=== PATIENT | female | born 1980 | race Caucasian/White ===

== ENCOUNTER 2017-01-16 13:17 | Emergency (ER) | payer MEDICAID ==
--- NOTE | 2017-01-16 13:34 | PD ---
HPI Chief Complaint: OD/ Ingestion Time Seen by Provider: 13:33 Travel History International Travel<30 days: No Contact w/Intl Traveler<30days: No History of Present Illness HPI Patient is a 36-year-old female with history of active IV drug abuse, uses heroin amongst many other things. She apparently had shot up heroin shortly prior to arrival. She was found blue, apneic. She was given Narcan 0.4 mg. per EMS with return to baseline mental status. Patient agitated aggressive with EMS en route. Patient does not want to be here should. She is alert and oriented 3. She accidentally overdose, this was not intentional, suicide. PFSH Past Medical History Asthma: No Blood Disorders: No Anxiety: Yes Depression: Yes Cancer: No Cardiovascular Problems: No Chemotherapy: No Endocrine: No Genitourinary: Yes (KIDNEY STONES) Hypertension: No Immune Disorder: No Musculoskeletal: No Neurologic: Yes (EPILEPSY) Psychiatric: No Reproductive: No Respiratory: No Radiation Therapy: No Seizures: Yes : 1 Para: 1 Past Surgical History AICD: No Arteriovenous Shunt: No Insulin Pump: No Joint Replacement: No Pacemaker: No Other Surgery: Yes (RT. WRIST) Social History Alcohol Use: Yes (occ) Tobacco Use: Yes (ppd) Substance Use: Yes (ALCOHOL, OPIATES, COCAINE, AMPHETAMINES) Allergies-Medications (Allergen,Severity, Reaction): Coded Allergies: Aspirin (Verified Allergy, Severe, MAKES SEIZURES WORSE, 04/06/16) Codeine (Verified Allergy, Severe, 04/06/16) Mushroom (Verified Allergy, Severe, ANAPHYLAXIS, 04/06/16) Tramadol (Verified Allergy, Severe, 04/06/16) Reported Meds & Prescriptions Reported Meds & Active Scripts Active Review of Systems ROS Limitations: Uncooperative Physical Exam Exam Limitations: Uncooperative Narrative GENERAL: Disheveled adult female barefoot with dirt along her back SKIN: Focused skin assessment warm/dry. Tract jerome along the bilateral upper extremities HEAD: Atraumatic. Normocephalic. EYES: No scleral icterus. No injection or drainage. ENT: Mucous membranes pink and moist. CARDIOVASCULAR: Regular rate and rhythm. Heart rate approximately 80s by palpation RESPIRATORY: No accessory muscle use. MUSCULOSKELETAL: Normal gait NEUROLOGICAL: Awake and alert 3. Motor grossly within normal limits. Normal speech. PSYCHIATRIC: Agitated, uncooperative MDM Medical Decision Making Medical Screen Exam Complete: Yes Emergency Medical Condition: Yes Medical Record Reviewed: Yes Differential Diagnosis 36-year-old female here for overdose. Patient overdosed on opioid, found with syringes and other paraphernalia on her person. Admits to overdosing on heroin , accidentally. Now after 0.4 mg's and Narcan patient is awake and alert and oriented. Patient is uncooperative, cantankerous. She does not want to be here and does not want care. Differential includes concurrent ingestion, overdose, alcohol intoxication Narrative Course Patient awake and alert and oriented 3. Patient at this time has the capacity to make decisions for herself, and does not want to seek care at this time. Patient refuses recommended 3 hour observation period and leaves AGAINST MEDICAL ADVICE. Diagnosis Primary Impression: Left against medical advice Patient Instructions: General Instructions Departure Forms: Tests/Procedures Additional Instructions: Seek outpatient counseling for your substance abuse Scripts No Active Prescriptions or Reported Meds Disposition: 07 AGAINST MEDICAL ADVICE Condition: Stable Manisha Jaramillo MD Jan 16, 2017 13:34
== END 2017-01-16 13:30 | disposition left against medical advice (07) ==
LOC: NEPD 13:17
DX: T40.1X1A Poisoning by heroin, accidental (unintentional), initial encounter (principal); F41.9 Anxiety disorder, unspecified; F32.9 Major depressive disorder, single episode, unspecified; G40.909 Epilepsy, unspecified, not intractable, without status epilepticus; F17.200 Nicotine dependence, unspecified, uncomplicated; Z88.6 Allergy status to analgesic agent; Z88.5 Allergy status to narcotic agent
CPT/HCPCS: 99281

== ENCOUNTER 2017-02-13 15:40 | Inpatient (IN) | payer MEDICAID ==
[~2017-02-13] VITALS: Ht 154.9 cm; Wt 67.1 kg
[2017-02-13 15:42] VITALS: BP 119/83; PULSE 104; RESP 15; TEMP 98.6; O2SAT 99
[2017-02-13] MEDS ORDERED: PIPERACIL-TAZO 4.5 GM PREMIX 100 ML IV STA (16:14)
[2017-02-13] MEDS ORDERED: VANCOMYCIN INJ 1,000 MG in SODIUM CHLOR 0.9% 250 ML INJ 250 ML IV STA (16:14)
[2017-02-13] MEDS ORDERED: SODIUM CHLOR 0.9% 1000 ML INJ 1,000 ML IV ONE (16:15)
[2017-02-13] MEDS ORDERED: ONDANSETRON HCL 4 MG/2 ML VIAL IV PUSH ONE (16:15)
[2017-02-13] MEDS ORDERED: MORPHINE SULFATE 4 MG/ML INJ IV PUSH ONE ×2 (16:15→18:15)
[2017-02-13 16:22] VITALS: BP 125/80; PULSE 82; RESP 18; O2SAT 97
--- NOTE | 2017-02-13 16:26 | PD ---
HPI Chief Complaint: Skin Problem Time Seen by Provider: 16:20 Travel History International Travel<30 days: No Contact w/Intl Traveler<30days: No Traveled to known affect area: No History of Present Illness HPI Patient comes in complaining of right upper extremity cellulitis ongoing for approximately a month. Patient denies any known fevers but reports chills. Patient states she tried eating raw garlic with no improvement in her symptoms. Patient states she went to a different ER yesterday and given IV antibiotics supposed to be admitted however after getting into an argument with one of the nurses there she left with a prescription for clindamycin. Patient states feels as though infection continues to spread. Feels it is is going into her neck and her chest. Patient describes pain as pressure/burning/aching like in nature. Pain is worse palpation. Patient is a heroin user states she last used 2 weeks ago. Denies any chest pain, shortness of breath, nausea, vomiting , loss or change in bowel or bladder, or . PFSH Past Medical History Asthma: No Blood Disorders: No Anxiety: Yes Depression: Yes Cancer: No Cardiovascular Problems: No Chemotherapy: No Endocrine: No Gastrointestinal Disorders: No Genitourinary: Yes (KIDNEY STONES) Hypertension: No Immune Disorder: No Implanted Vascular Access Dvce: No Musculoskeletal: No Neurologic: Yes (EPILEPSY) Psychiatric: No Reproductive: No Respiratory: No Radiation Therapy: No Seizures: Yes ?: Not : 1 Para: 1 Past Surgical History AICD: No Arteriovenous Shunt: No Insulin Pump: No Joint Replacement: No Pacemaker: No Other Surgery: Yes (RT. WRIST) Social History Alcohol Use: Yes (occ) Tobacco Use: Yes (ppd) Substance Use: Yes (ALCOHOL, OPIATES, COCAINE, AMPHETAMINES) Allergies-Medications (Allergen,Severity, Reaction): Coded Allergies: aspirin (Unverified Allergy, Severe, MAKES SEIZURES WORSE, 02/08/17) codeine (Unverified Allergy, Severe, 02/08/17) mushroom (Unverified Allergy, Severe, ANAPHYLAXIS, 02/08/17) tramadol (Unverified Allergy, Severe, 02/08/17) cephalexin (Verified Allergy, Intermediate, seizure, 02/13/17) latex (Verified Allergy, Intermediate, rash, 02/13/17) vancomycin (Verified Allergy, Intermediate, hives, 8/20/17) Reported Meds & Prescriptions Reported Meds & Active Scripts Active Review of Systems Except as stated in HPI: all other systems reviewed are Neg Physical Exam Narrative GENERAL: Well-developed, overly nourished, in no acute distress, and non-ill appearing. SKIN: Large area cellulitis noted right upper extremity is indurated, tender, without crepitus or definitive fluctuation over patient is very sensitive area and allow me fully evaluate for fluctuation. Erythematous goes into the right axilla. HEAD: Atraumatic. Normocephalic. EYES: Pupils equal and round. EOMI. No scleral icterus. No injection or drainage. ENT: No nasal bleeding or discharge. Mucous membranes pink and moist. NECK: Trachea midline. No cervical lymphadenopathy. Supple. No nuclear rigidity. CARDIOVASCULAR: Regular rate and rhythm. No murmur appreciated. RESPIRATORY: No accessory muscle use. No respiratory distress. Clear to auscultation. Breath sounds equal bilaterally. MUSCULOSKELETAL: No obvious deformities. No clubbing. No cyanosis. No edema. Full range of motion. NEUROLOGICAL: Awake and alert. No obvious cranial nerve deficits. Motor grossly within normal limits. Normal speech. PSYCHIATRIC: Appropriate mood and affect; insight and judgment normal. Data Data Last Documented VS Vital Signs Date Time Temp Pulse Resp B/P (MAP) Pulse Ox O2 Delivery O2 Flow Rate FiO2 02/13/17 17:52 16 02/13/17 16:22 97 Room Air 02/13/17 16:22 82 125/80 (95) 02/13/17 15:42 98.6 Orders Orders Complete Blood Count With Diff (02/13/17 16:14) Comprehensive Metabolic Panel (02/13/17 16:14) Prothrombin Time / Inr (Pt) (02/13/17 16:14) Act Partial Throm Time (Ptt) (02/13/17 16:14) Lactic Acid Sepsis Protocol (02/13/17 16:14) Urinalysis - C+S If Indicated (02/13/17 16:14) Blood Culture (02/13/17 16:14) Chest, Single Ap (02/13/17 16:14) Blood Glucose (02/13/17 16:14) Ecg Monitoring (02/13/17 16:14) Iv Access Insert/Monitor (02/13/17 16:14) Oximetry (02/13/17 16:14) Oxygen Administration (02/13/17 16:14) Piperacil-Tazo 4.5 Gm Premix (Zosyn 4.5 (02/13/17 16:14) Vancomycin Inj (Vancomycin Inj) (02/13/17 16:14) Ed Urine Pregnancytest Poc (02/13/17 16:14) Morphine Inj (Morphine Inj) (02/13/17 16:15) Ondansetron Inj (Zofran Inj) (02/13/17 16:15) Sodium Chlor 0.9% 1000 Ml Inj (Ns 1000 M (02/13/17 16:15) Morphine Inj (Morphine Inj) (02/13/17 18:15) Admit Order (Ed Use Only) (02/13/17 18:28) Labs Laboratory Tests Test 02/13/17 16:45 02/13/17 18:00 White Blood Count 16.6 TH/MM3 Red Blood Count 4.39 MIL/MM3 Hemoglobin 11.1 GM/DL Hematocrit 33.5 % Mean Corpuscular Volume 76.3 FL Mean Corpuscular Hemoglobin 25.4 PG Mean Corpuscular Hemoglobin Concent 33.3 % Red Cell Distribution Width 15.3 % Platelet Count 390 TH/MM3 Mean Platelet Volume 7.3 FL Neutrophils (%) (Auto) 83.3 % Lymphocytes (%) (Auto) 9.5 % Monocytes (%) (Auto) 6.5 % Eosinophils (%) (Auto) 0.5 % Basophils (%) (Auto) 0.2 % Neutrophils # (Auto) 13.8 TH/MM3 Lymphocytes # (Auto) 1.6 TH/MM3 Monocytes # (Auto) 1.1 TH/MM3 Eosinophils # (Auto) 0.1 TH/MM3 Basophils # (Auto) 0.0 TH/MM3 CBC Comment DIFF FINAL Differential Comment Prothrombin Time 10.7 SEC Prothromb Time International Ratio 1.0 RATIO Activated Partial Thromboplast Time 30.6 SEC Blood Urea Nitrogen 11 MG/DL Creatinine 0.93 MG/DL Random Glucose 89 MG/DL Total Protein 6.6 GM/DL Albumin 2.4 GM/DL Calcium Level 7.9 MG/DL Alkaline Phosphatase 151 U/L Aspartate Amino Transf (AST/SGOT) 12 U/L Alanine Aminotransferase (ALT/SGPT) 18 U/L Total Bilirubin 0.6 MG/DL Sodium Level 137 MEQ/L Potassium Level 3.4 MEQ/L Chloride Level 103 MEQ/L Carbon Dioxide Level 26.9 MEQ/L Anion Gap 7 MEQ/L Estimat Glomerular Filtration Rate 69 ML/MIN Lactic Acid Level 0.9 mmol/L Urine Color YELLOW Urine Turbidity CLOUDY Urine pH 6.0 Urine Specific [place] 1.012 Urine Protein 30 mg/dL Urine Glucose (UA) NEG mg/dL Urine Ketones NEG mg/dL Urine Occult Blood SMALL Urine Nitrite NEG Urine Bilirubin NEG Urine Urobilinogen LESS THAN 2.0 MG/DL Urine Leukocyte Esterase LARGE Urine RBC 10 /hpf Urine WBC 33 /hpf Urine Squamous Epithelial Cells 56 /hpf Urine Bacteria FEW /hpf Urine Yeast (Budding) RARE Microscopic Urinalysis Comment CATH-CULTURE IND MDM Medical Decision Making Medical Screen Exam Complete: Yes Emergency Medical Condition: Yes Interpretation(s) Chest x-ray reviewed by the radiologist shows: No acute cardiopulmonary disease. Differential Diagnosis Abscess, cellulitis, sepsis, bacteremia, pneumonia, other Narrative Course Patient seen and examined. IV was established. Patient was placed on helper/driver. Initial laboratory and radiological studies ordered. Patient given vancomycin and Zosyn, along with IV fluids, and morphine for pain. Discussed patient with Dr. Romero, who is agreeable with plan of care and disposition. Discussed all findings and plan care of patient, who is agreeable for admission. Discussed patient with presence or agreeable to admit the patient. Physician Communication Physician Communication [phone] suspicion with residents collections clerk for , who are agreeable to admit the patient. Diagnosis Primary Impression: Cellulitis Qualified Codes: L03.113 - Cellulitis of right upper limb Additional Impression: Substance use disorder Admitting Information Admitting Physician Requests: Admit Scripts No Active Prescriptions or Reported Meds Condition: Stable Fabiano Sierra Feb 13, 2017 16:26
--- NOTE | 2017-02-13 17:05 | RADRPT ---
EXAM DATE/TIME: 02/13/2017 16:48 [facility] COMPARISON: CHEST SINGLE AP, November 27, 2009, 13:32. INDICATIONS : Shortness of breath. MEDICAL HISTORY : None. SURGICAL HISTORY : None. ENCOUNTER: Initial ACUITY: 1 day PAIN SCORE: 0/10 LOCATION: Bilateral chest FINDINGS: The lungs are clear without infiltrate, nodule, or mass. There is no appreciable pleural effusion fo r technique. Heart and mediastinum are unremarkable. There is old healed right clavicular fracture. CONCLUSION: No acute cardiopulmonary disease. Ga Alonso MD on February 13, 2017 at 17:03 Board Certified Radiologist. This report was verified electronically.
[2017-02-13 17:35] LABS: AUTOMATED NEUTROPHIL # 13.8 TH/MM3 (1.8-7.7); BASOPHIL % 0.2 % (0.0-2.0); EOSINOPHIL # 0.1 TH/MM3 (0-0.4); EOSINOPHIL % 0.5 % (0.0-4.0); HEMATOCRIT 33.5 % (35.0-46.0); HEMO FLAGS DIFF FINAL; LYMPH % 9.5 % (9.0-44.0); LYMPHOCYTE # 1.6 TH/MM3 (1.0-4.8); MEAN CELL VOLUME 76.3 FL (80.0-100.0); MEAN CORPUSCULAR HEMOGLOBIN 25.4 PG (27.0-34.0); MEAN CORPUSCULAR HGB CONC 33.3 % (32.0-36.0); MONO % 6.5 % (0.0-8.0); NEUT % 83.3 % (16.0-70.0); PLATELET COUNT 390 TH/MM3 (150-450); RED BLOOD COUNT 4.39 MIL/MM3 (4.00-5.30); RED CELL DISTRIBUTION WIDTH 15.3 % (11.6-17.2); WHITE BLOOD COUNT 16.6 TH/MM3 (4.0-11.0)
[2017-02-13 17:44] LABS: APTT (PATIENT) 30.6 SEC (24.3-30.1); PROTHROMBIN TIME - PATIENT 10.7 SEC (9.8-11.6)
[2017-02-13 17:51] LABS: ANION GAP 7 MEQ/L (5-15); AST (GOT) 12 U/L (15-37); BICARBONATE 26.9 MEQ/L (21.0-32.0); BLOOD UREA NITROGEN 11 MG/DL (7-18); CHLORIDE 103 MEQ/L (98-107); GLOMERULAR FILTRATION RATE 69 ML/MIN (>89); POTASSIUM 3.4 MEQ/L (3.5-5.1); SODIUM (NA) 137 MEQ/L (136-145)
[2017-02-13 17:53] LABS: ALT (GPT) 18 U/L (10-53)
[2017-02-13 17:54] LABS: ALKALINE PHOSPHATASE 151 U/L (45-117); TOTAL BILIRUBIN ADULT 0.6 MG/DL (0.2-1.0)
[2017-02-13 18:31] LABS: BACTERIA, URINE FEW /hpf; BLOOD, URINE SMALL (NEG); GLUCOSE,URINE NEG (NEG); KETONE, URINE NEG (NEG); NITRITE,URINE NEG (NEG); SQUAMOUS EPITHELIAL CELL URINE 56 /hpf (0-5); URINE COLOR YELLOW (YELLW/STRAW)
[2017-02-13 18:32] LABS: COMMENT (UR) CATH-CULTURE IND; CULTURE IF INDICATED CATH CULTURE IND
--- NOTE | 2017-02-13 18:37 | HHI.HP ---
[facility] Service Family Medicine Primary Care Physician No Primary Care Physician Admission Diagnosis Diagnoses: Chief Complaint: Rash International Travel<30 Days: No Contact w/Intl Traveler<30days: No Known Affected Area: No History of Present Illness Patient is a 36-year-old female with history of epilepsy presents with right arm pain and rash. Patient states that she's been having a rash for the last 3 weeks. She states a month ago, she noticed a "bump" on her biceps. She had a bruise and a wound, and then bumped her arm a week later started swell up. Since then, she said is no swelling more and has been extremely more painful. She went to [facility] last week and was sent home with clindamycin. She then returned 4 days ago and was given a stronger dose of clindamycin. She then returned yesterday, but left AMA. She says the pain initially started on her arm, but has now progressed to armpit. She says she also has pain in her upper neck and right chest. She says the pain is constant, it is a throbbing pain. States it is burning. No numbness or tingling. Presented as a 10/10. Having chills and nausea. Feels lightheaded due to the pain. She took Advil at home, which helped minimally. 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 Denies any other wounds or rashes on her skin. (Enrique Lin MD, R2) Review of Systems Constitutional: COMPLAINS OF: Fever, Chills, Dizziness, DENIES: Weight loss, Change in appetite Eyes: DENIES: Eye pain, Vision loss Ears, nose, mouth, throat: COMPLAINS OF: Ear Pain Respiratory: DENIES: Cough, Shortness of breath Cardiovascular: COMPLAINS OF: Chest pain, Syncope Gastrointestinal: COMPLAINS OF: Nausea, Vomiting, DENIES: Abdominal pain, Black stools, Bloody stools, Constipation, Diarrhea Genitourinary: COMPLAINS OF: Dysuria, DENIES: Urgency Musculoskeletal: COMPLAINS OF: Joint Swelling, DENIES: Joint pain Integumentary: COMPLAINS OF: Abnormal pigmentation, Rash Neurologic: COMPLAINS OF: Headache, Seizures, DENIES: Paresthesias Psychiatric: COMPLAINS OF: Mood changes (Enrique Lin MD, R2) Past Family Social History Past Medical History Epilepsy; unknown last seizure date; no neurologist Osteomyelitis of sternum-2015 Right arm wound Past Surgical History Arm surgery Tonsillectomy Adenoidectomy Reported Medications Reported Meds & Active Scripts Active (Enrique Lin MD, R2) Allergies: Coded Allergies: aspirin (Unverified Allergy, Severe, MAKES SEIZURES WORSE, 02/08/17) codeine (Unverified Allergy, Severe, 02/08/17) mushroom (Unverified Allergy, Severe, ANAPHYLAXIS, 02/08/17) tramadol (Unverified Allergy, Severe, 02/08/17) cephalexin (Verified Allergy, Intermediate, seizure, 02/13/17) latex (Verified Allergy, Intermediate, rash, 02/13/17) vancomycin (Verified Allergy, Intermediate, hives, 02/13/17) Active Ordered Medications Active Medications Morphine Sulfate (Morphine Inj) 4 mg ONCE ONCE IV PUSH Last administered on 17:15; Admin Dose 4 MG; Start 02/13/17 at 16:15; Stop 02/13/17 at 16:19 ; Status DC Morphine Sulfate (Morphine Inj) 4 mg ONCE ONCE IV PUSH; Start 02/13/17 at 18:15 ; Stop 02/13/17 at 18:16; Status DC Ondansetron HCl (Zofran Inj) 4 mg ONCE ONCE IV PUSH Last administered on 16:15; Admin Dose 4 MG; Start 02/13/17 at 16:15; Stop 02/13/17 at 16:19; Status DC Piperacillin Sod/ Tazobactam Sod 100 ml @ 200 mls/hr ONCE STAT IV Last administered on 02/13/17 17:15; Admin Dose 200 MLS/HR; Start 02/13/17 at 16:14 ; Stop 02/13/17 at 16:43; Status DC Sodium Chloride 1,000 ml @ 999 mls/hr BOLUS ONCE IV Last administered on 17:14; Admin Dose 999 MLS/HR; Start 02/13/17 at 16:15; Stop 02/13/17 at 17: 15; Status DC Vancomycin HCl 1000 mg/Sodium Chloride 250 ml @ 250 mls/hr ONCE STAT IV Last administered on 02/13/17 17:59; Admin Dose 250 MLS/HR; Start 02/13/17 at 16:14 ; Stop 02/13/17 at 17:13; Status DC Family History Parents- heart disease Social History Smoke 2 PPD for 20 years Alcohol: Socially Illicit drug use: Quit heroin 3 weeks ago; marijuana daily (Enrique Lin MD, R2) Physical Exam Vital Signs Vital Signs Date Time Temp Pulse Resp B/P (MAP) Pulse Ox O2 Delivery O2 Flow Rate FiO2 02/13/17 17:52 16 02/13/17 16:22 97 Room Air 02/13/17 16:22 82 18 125/80 (95) 97 Room Air 02/13/17 16:14 88 20 02/13/17 15:42 98.6 104 15 119/83 (95) 99 Physical Exam GENERAL: well developed, normal mood and affect, appears in pain EYES: PERRLA. EOMI. Lids and conjunctivae reveal no gross abnormality. No scleral icterus. ENT: NCAT. MMM. OP/OC clear. No cervical or supraclavicular LAD. NECK: Supple, no masses. Trachea midline. No thyromegaly. SKIN: Large area of cellulitis on the right upper extremity. Extends from right inner arm to right axilla. Erythematous, warm to the touch. Not well demarcated. Indurated, especially on the right under arm. Difficult to extensively examine due to pain, but no fluctuance or crepitus appreciated. No exudates. No foul smell. No necrotic appearing tissue. No skin sloughing. No ulcers. Sensation in overlying skin intact. Good distal pulses. No loss of motor function distally. RESPIRATORY: CTAB, no wheezing, crackles, or increased WOB. CARDIOVASCULAR: RRR, no m/r/g. Normal S1, S2 heart sounds. Radial and DP pulses 2+ and symmetric bilaterally. Brisk capillary refill. ABDOMEN: S/ NT/ND. Bowel sounds x 4. No masses or pulsations present. No hepatosplenomegaly. EXTREMITIES: No remarkable dependent edema or varicosities. No clubbing, cyanosis, or erythema. MUSCULOSKELETAL: MAEW without significant joint pain or deformity. No calf tenderness. NEUROLOGICAL: NFND. Sensory intact bilaterally PSYCHIATRIC: Mental status normal for age. Laboratory Laboratory Tests Test 02/13/17 16:45 02/13/17 18:00 White Blood Count 16.6 Red Blood Count 4.39 Hemoglobin 11.1 Hematocrit 33.5 Mean Corpuscular Volume 76.3 Mean Corpuscular Hemoglobin 25.4 Mean Corpuscular Hemoglobin Concent 33.3 Red Cell Distribution Width 15.3 Platelet Count 390 Mean Platelet Volume 7.3 Neutrophils (%) (Auto) 83.3 Lymphocytes (%) (Auto) 9.5 Monocytes (%) (Auto) 6.5 Eosinophils (%) (Auto) 0.5 Basophils (%) (Auto) 0.2 Neutrophils # (Auto) 13.8 Lymphocytes # (Auto) 1.6 Monocytes # (Auto) 1.1 Eosinophils # (Auto) 0.1 Basophils # (Auto) 0.0 CBC Comment DIFF FINAL Differential Comment Prothrombin Time 10.7 Prothromb Time International Ratio 1.0 Activated Partial Thromboplast Time 30.6 Blood Urea Nitrogen 11 Creatinine 0.93 Random Glucose 89 Total Protein 6.6 Albumin 2.4 Calcium Level 7.9 Alkaline Phosphatase 151 Aspartate Amino Transf (AST/SGOT) 12 Alanine Aminotransferase (ALT/SGPT) 18 Total Bilirubin 0.6 Sodium Level 137 Potassium Level 3.4 Chloride Level 103 Carbon Dioxide Level 26.9 Anion Gap 7 Estimat Glomerular Filtration Rate 69 Lactic Acid Level 0.9 Date/Time Source Procedure Growth Status 02/13/17 16:45 Blood Peripheral Aerobic Blood Culture Pending Received 02/13/17 16:45 Blood Peripheral Anaerobic Blood Culture Pending Received (Enrique Lin MD, R2) Result Diagram: 02/13/17 1645 02/13/17 1645 Caprini VTE Risk Assessment Caprini VTE Risk Assessment: No/Low Risk (score <= 1) Caprini Risk Assessment Model Point Value = 1 Point Value = 2 Point Value = 3 Point Value = 5 Age 41-60 Minor surgery BMI > 25 kg/m2 Swollen legs Varicose veins or History of unexplained or recurrent spontaneous Oral contraceptives or hormone replacement Sepsis (< 1 month) Serious lung disease, including pneumonia (< 1 month) Abnormal pulmonary function Acute myocardial infarction Congestive heart failure (< 1 month) History of inflammatory bowel disease Medical patient at bed rest Age 61-74 Arthroscopic surgery Major open surgery (> 45 min) Laparoscopic surgery (> 45 min) Malignancy Confined to bed (> 72 hours) Immobilizing plaster cast Central venous access Age >= 75 History of VTE Family history of VTE Factor V Leiden Prothrombin [id number] Lupus anticoagulant Anticardiolipin antibodies Elevated serum homocysteine Heparin-induced thrombocytopenia Other congenital or acquired thrombophilia Stroke (< 1 month) Elective arthroplasty Hip, pelvis, or leg fracture Acute spinal cord injury (< 1 month) Prophylaxis Regimen Total Risk Factor Score Risk Level Prophylaxis Regimen 0-1 Low Early ambulation 2 Moderate Order ONE of the following: *Sequential Compression Device (SCD) *Heparin 5000 units SQ BID 3-4 Higher Order ONE of the following medications: *Heparin 5000 units SQ TID *Enoxaparin/Lovenox 40 mg SQ daily (WT < 150 kg, CrCl > 30 mL/min) *Enoxaparin/Lovenox 30 mg SQ daily (WT < 150 kg, CrCl > 10-29 mL/min) *Enoxaparin/Lovenox 30 mg SQ BID (WT < 150 kg, CrCl > 30 mL/min) AND/OR *Sequential Compression Device (SCD) 5 or more Highest Order ONE of the following medications: *Heparin 5000 units SQ TID (Preferred with Epidurals) *Enoxaparin/Lovenox 40 mg SQ daily (WT < 150 kg, CrCl > 30 mL/min) *Enoxaparin/Lovenox 30 mg SQ daily (WT < 150 kg, CrCl > 10-29 mL/min) *Enoxaparin/Lovenox 30 mg SQ BID (WT < 150 kg, CrCl > 30 mL/min) AND *Sequential Compression Device (SCD) (Enrique Lin MD, R2) Assessment and Plan Assessment and Plan 36-year-old female with history of epilepsy presents with painful cellulitis. We'll admit for IV antibiotics and general surgery consult for possible intervention. Code Status Full Discussed Condition With Dr. Hudson & Darline (Enrique Lin MD, R2) Attending Attestation THIS CASE WAS DISCUSSED WITH THE RESIDENT PHYSICIANS. I HAVE REVIEWED THE RECORD AND AGREE WITH THE ABOVE NOTE AND PLAN OF CARE WAS DISCUSSED. I HAVE AUTHORIZED THE ORDER FOR ADMISSION TO AN IN-PATIENT STATUS. (Lorne Hudson MD) Problem List: (1) Cellulitis ICD Codes: L03.90 - Cellulitis, unspecified Status: Acute Plan: Patient presents with cellulitis starting, the patient 3 weeks ago. Worsening pain, swelling, and redness. Unsure of initial injury, possible bite or wound. History of MRSA. Physical exam consistent with painful cellulitis; unclear demarcation; indurated. Extends from right inner arm up to axilla. Leukocytosis of 16.6. Afebrile. Lactic acid 0.9 Given Vanc & Zosyn in ED -Continue Vancomycin IV q12H; consult pharmacy for dosing adjustment -Consult general surgery due to significant pain and possible abscess -Appreciate recs -IVF -NPO after midnight for possible intervention -Percocet, morphine PRN pain -CK pending (2) UTI (urinary tract infection) ICD Codes: N39.0 - Urinary tract infection, site not specified Status: Acute Plan: Complaints of dysuria. UA significant for large LE, 10 RBC, 33 WBC, few bacteria. -Rocephin 2g daily -Await urine culture -IVF (3) Epilepsy ICD Codes: G40.909 - Epilepsy, unspecified, not intractable, without status epilepticus Status: Chronic Plan: Patient states he has a history of epilepsy. Currently not on any medications. Unsure of last seizure. Doesn't see neurologist. -Continue to monitor -Seizure precautions -Ativan PRN seizure (4) FEN Status: Acute Plan: Fluids: NS @ 100mls/hr Electrolytes: monitor/replace PRN Nutrition: regular diet; NPO after midnight DVT ppx: SCDs; no chemoppx due to possible surgery (Enrique Lin MD, R2) Problem Qualifiers (1) Cellulitis: Qualified Codes: L03.113 - Cellulitis of right upper limb (2) UTI (urinary tract infection): Qualified Codes: N30.01 - Acute cystitis with hematuria (3) Epilepsy: Qualified Codes: G40.919 - Epilepsy, unspecified, intractable, without status epilepticus Enrique Lin MD, R2 Feb 13, 2017 18:37 Lorne Hudson MD Feb 14, 2017 15:52
[2017-02-13] MEDS ORDERED: ACETAMINOPHEN 325 MG TAB PO PRN (19:15)
[2017-02-13] MEDS ORDERED: SODIUM CHLORIDE 0.9% FLUSH 10 ML FLUSH IV FLUSH PRN (19:15)
[2017-02-13] MEDS ORDERED: Vancomycin Consult Pharmacy 1 EA OTHER SCH (19:15)
[2017-02-13] MEDS ORDERED: NALOXONE HCL 0.4 MG/ML AMP IV PRN (19:15)
[2017-02-13] MEDS ORDERED: diphenhydrAMINE HCL 25 MG CAP PO PRN (19:15)
[2017-02-13 19:27] VITALS: BP 116/73; PULSE 82; RESP 18; O2SAT 100
[2017-02-13] MEDS ORDERED: HEPARIN SODIUM - SQ 10,000 UNITS/ML VIAL SQ SCH (20:00)
[2017-02-13] MEDS ORDERED: LORazepam 2 MG/ML VIAL IV PRN (20:15)
[2017-02-13 20:22] LABS: CREATINE KINASE 23 U/L (26-192)
[2017-02-13] MEDS: DOCUSATE SODIUM 50 MG/SENNA 8.6 MG TAB PO SCH (20:52)
[2017-02-13] MEDS: SODIUM CHLORIDE 0.9% FLUSH 10 ML FLUSH IV FLUSH SCH (20:57)
[2017-02-13] MEDS: SODIUM CHLOR 0.9% 1000 ML INJ 1,000 ML IV SCH (20:57)
[2017-02-13 21:00] VITALS: PULSE 79
[2017-02-13] MEDS: oxyCODONE/ACETAMINOPHEN 10 MG/325 MG TAB PO PRN (21:09)
[2017-02-13] MEDS: MORPHINE SULFATE 4 MG/ML INJ IV PRN (22:55)
[2017-02-13] MEDS: cefTRIAXone INJ 2,000 MG in SODIUM CHLORIDE 0.9% INJ 100 ML IV SCH (23:02)
--- NOTE | 2017-02-13 23:04 | RADRPT ---
EXAM DATE/TIME: 02/13/2017 22:26 [facility] COMPARISON: No previous studies available for comparison. INDICATIONS : Abscess. MEDICAL HISTORY : Contacts. Epilepsy. Seizures. Syncope. Headache. Kidney stones. Dysuria. Depression. Anxiety. Substan ce abuse. SURGICAL HISTORY : Right wrist surgery. ENCOUNTER: Initial ACUITY: 2 weeks PAIN SCORE: 10/10 LOCATION: Right arm. AREA EVALUATED: Right upper inner arm. FINDINGS: There is redness and swelling in the upper arm which correlates sonographically with a probable phleg monous area characterized by some edematous change but without discrete or drainable fluid collection or abscess. CONCLUSION: 1. Probable phlegmonous changes in the upper inner arm without discrete fluid collection to suggest a bscess. Frank Brito MD on February 13, 2017 at 22:59 Board Certified Radiologist. This report was verified electronically.
[2017-02-14] VITALS: BP 101/57; PULSE 82; RESP 18; TEMP 98.5; O2SAT 97
[2017-02-14] MEDS: oxyCODONE/ACETAMINOPHEN 10 MG/325 MG TAB PO PRN ×3 (03:39→18:20)
[2017-02-14] MEDS: SODIUM CHLOR 0.9% 1000 ML INJ 1,000 ML IV SCH ×3 (03:57→16:00)
[2017-02-14 04:00] VITALS: BP 114/76; PULSE 67; RESP 18; TEMP 98.4; O2SAT 98
[2017-02-14] MEDS: MORPHINE SULFATE 4 MG/ML INJ IV PRN ×5 (04:49→21:46)
[2017-02-14] MEDS: VANCOMYCIN INJ 1,000 MG in SODIUM CHLOR 0.9% 250 ML INJ 250 ML IV SCH ×2 (04:50→18:21)
[2017-02-14 08:00] VITALS: BP 119/85; PULSE 69; PULSE 71; RESP 20; TEMP 98.2; O2SAT 98
[2017-02-14] MEDS: SODIUM CHLORIDE 0.9% FLUSH 10 ML FLUSH IV FLUSH SCH ×2 (08:15→21:46)
--- NOTE | 2017-02-14 08:41 | HHI.FPPN ---
Subjective Remarks FM Attending Note: Patient seen and examined. S: Chart and all resident physician notes reviewed. In summary this is a 36 year old female who was admitted with an admission diagnosis of Right Upper Externa Cellulitis, Iv Drug Abuse. This patient has a history of heroin use along with marijuana. She reports that she stopped heroin use approximately 3 weeks ago. Over the last 1-2 weeks she developed initially pain and redness over the medial aspect of her right upper extremity in the mid humeral area. The redness apparently increased and spread up to her axilla. No injury was noted. She was seen at [facility] initially and treated with oral clindamycin. She apparently returned on the day prior to this admission and was admitted but left after one dose of IV vancomycin due to lack of physician attendance I her report. No previous similar episode has been noted. The patient notes that the pain is 10 over 10 when she does not receive her pain medication. She has been having some chills and nausea. She does have a history of previous MRSA infections. 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 Objective Vitals Vital Signs Date Time Temp Pulse Resp B/P (MAP) Pulse Ox O2 Delivery O2 Flow Rate FiO2 02/14/17 04:54 18 02/14/17 04:39 20 02/14/17 04:00 98.4 67 18 114/76 (89) 98 02/14/17 04:00 Room Air 02/14/17 00:00 98.5 82 18 101/57 (72) 97 02/14/17 00:00 Room Air 02/13/17 21:00 79 02/13/17 20:00 Room Air 02/13/17 19:39 02/13/17 19:27 82 18 116/73 (87) 100 Room Air 02/13/17 17:52 16 02/13/17 16:22 97 Room Air 02/13/17 16:22 82 18 125/80 (95) 97 Room Air 02/13/17 16:14 88 20 02/13/17 15:42 98.6 104 15 119/83 (95) 99 I/O 02/13/17 02/13/17 02/13/17 02/14/17 02/14/17 02/14/17 07:00 15:00 23:00 07:00 15:00 23:00 Intake Total 642 ml Balance 642 ml Intake Oral 0 ml IV Total 642 ml # Voids 1 Result Diagram: 02/13/17 16402/13/17 164 Other Results Item Value Date Time Total Bilirubin 0.6 MG/DL 02/13/17 164 Aspartate Amino Transf (AST/SGOT) 12 U/L L 02/13/17 164 Alanine Aminotransferase (ALT/SGPT) 18 U/L 02/13/17 164 Alkaline Phosphatase 151 U/L H 02/13/17 1645 Total Creatine Kinase 23 U/L L 02/13/17 164 Urine Specific [place] 1.012 02/13/17 1800 Urine Protein 30 mg/dL H 02/13/17 1800 Urine Occult Blood SMALL H 02/13/17 1800 Urine Nitrite NEG 02/13/17 1800 Urine Leukocyte Esterase LARGE H 02/13/17 1800 Urine RBC 10 /hpf H 02/13/17 1800 Urine WBC 33 /hpf H 02/13/17 1800 Prothromb Time International Ratio 1.0 RATIO 02/13/171644 Imaging An ultrasound of her right upper extremity showed probable phlegmonous changes in the upper inner arm without discrete fluid collections to suggest abscess. Objective Remarks O. CONSTITUTIONAL/GEN: normally nourished, in NAD. EYES: conjunctiva normal, PERRLA, EOMI. LUNGS: clear A-P, respiratory effort is normal. CARDIOVASCULAR: RR without murmur or gallop. No significant edema. GI/ABD: soft without masses, without organomegaly. : no CVA tenderness NEURO: No focal deficits. SKIN: color normal, no rashes noted. Exam of RUE shows erythema and induration of the medial humeral area extending up into her axilla. No palpable fluctuance is noted. HEME/LYMPH: no bruising, petechia or significant adenopathy MUSC: back is normal in appearance. Extremities are normal in appearance. PSYCH/MENTAL STATUS: Alert and oriented x 3. A/P Assessment and Plan 36-year-old female with history of epilepsy presents with painful cellulitis. We'll admit for IV antibiotics and general surgery consult for possible intervention. Problem List: (1) Cellulitis ICD Codes: L03.90 - Cellulitis, unspecified Status: Acute Plan: Patient presents with cellulitis starting, the patient 3 weeks ago. Worsening pain, swelling, and redness. Unsure of initial injury, possible bite or wound. History of MRSA. Physical exam consistent with painful cellulitis; unclear demarcation; indurated. Extends from right inner arm up to axilla. Leukocytosis of 16.6. Afebrile. Lactic acid 0.9 Given Vanc & Zosyn in ED -Continue Vancomycin IV q12H; consult pharmacy for dosing adjustment -Consult general surgery due to significant pain and possible abscess -Appreciate recs -IVF -NPO after midnight for possible intervention -Percocet, morphine PRN pain -CK pending 02/14/17 This patient appears to have an incompletely treated cellulitis of her right upper extremity. She does have significant pain with some induration but her CPK is normal suggesting that there is not deep tissue involvement. We'll continue her on antibiotic therapy. Have consulted general surgery for evaluation. (2) UTI (urinary tract infection) ICD Codes: N39.0 - Urinary tract infection, site not specified Status: Acute Plan: Complaints of dysuria. UA significant for large LE, 10 RBC, 33 WBC, few bacteria. -Rocephin 2g daily -Await urine culture -IVF (3) Epilepsy ICD Codes: G40.909 - Epilepsy, unspecified, not intractable, without status epilepticus Status: Chronic Plan: Patient states he has a history of epilepsy. Currently not on any medications. Unsure of last seizure. Doesn't see neurologist. -Continue to monitor -Seizure precautions -Ativan PRN seizure (4) FEN Status: Acute Plan: Fluids: NS @ 100mls/hr Electrolytes: monitor/replace PRN Nutrition: regular diet; NPO after midnight DVT ppx: SCDs; no chemoppx due to possible surgery Problem Qualifiers (1) Cellulitis: Qualified Codes: L03.113 - Cellulitis of right upper limb (2) UTI (urinary tract infection): Qualified Codes: N30.01 - Acute cystitis with hematuria (3) Epilepsy: Qualified Codes: G40.919 - Epilepsy, unspecified, intractable, without status epilepticus Lorne Hudson MD Feb 14, 2017 08:41
[2017-02-14 08:51] LABS: BICARBONATE 24.3 MEQ/L (21.0-32.0); POTASSIUM 3.5 MEQ/L (3.5-5.1)
[2017-02-14 08:58] LABS: AUTOMATED NEUTROPHIL # 10.1 TH/MM3 (1.8-7.7); BASOPHIL % 0.3 % (0.0-2.0); EOSINOPHIL # 0.1 TH/MM3 (0-0.4); EOSINOPHIL % 1.1 % (0.0-4.0); HEMATOCRIT 31.2 % (35.0-46.0); HEMO FLAGS DIFF FINAL; LYMPH % 14.9 % (9.0-44.0); MEAN CELL VOLUME 77.3 FL (80.0-100.0); MEAN CORPUSCULAR HEMOGLOBIN 24.6 PG (27.0-34.0); MEAN CORPUSCULAR HGB CONC 31.9 % (32.0-36.0); NEUT % 76.7 % (16.0-70.0); PLATELET COUNT 398 TH/MM3 (150-450); RED BLOOD COUNT 4.04 MIL/MM3 (4.00-5.30); RED CELL DISTRIBUTION WIDTH 15.4 % (11.6-17.2); WHITE BLOOD COUNT 13.1 TH/MM3 (4.0-11.0)
[2017-02-14 12:00] VITALS: BP 122/82; PULSE 71; RESP 20; TEMP 98.4; O2SAT 96
[2017-02-14 16:00] VITALS: BP 131/90; PULSE 71; RESP 20; TEMP 98.3; O2SAT 98
--- NOTE | 2017-02-14 16:42 | PD.CONS ---
HPI Service General surgery Consult Requested By Reason for Consult Right upper extremity cellulitis possible abscess Primary Care Physician No Primary Care Physician History of Present Illness The patient is a 36-year-old female who has had a right upper extremity infection for about a month. She presented to [facility] earlier this week and it sounds like left AGAINST MEDICAL ADVICE. She had an outpatient prescription for clindamycin. She was noted to have leukocytosis and severe pain in the right upper extremity. Then consulted to evaluate for abscess or anything requiring drainage or debridement. She complains of pain radiating around her shoulder and right upper chest as well. She cannot fully extend her elbow and has pain with any movement of the right arm. She denies paresthesias in the hand. She has a history of sternal osteomyelitis in 2015. The patient has a history of IV drug use. Review of Systems Constitutional: COMPLAINS OF: Chills, DENIES: Fever Eyes: DENIES: Eye inflammation, Eye pain Respiratory: DENIES: Cough, Shortness of breath Cardiovascular: COMPLAINS OF: Chest pain, DENIES: Palpitations Gastrointestinal: DENIES: Abdominal pain, Nausea, Vomiting Musculoskeletal: COMPLAINS OF: Joint pain, Muscle aches Integumentary: COMPLAINS OF: Rash, DENIES: Pruritus Neurologic: DENIES: Paresthesias, Seizures Past Family Social History Past Medical History Osteomyelitis of the sternum IV drug use Reported history of epilepsy Past Surgical History Arm surgery Tonsillectomy Adenoidectomy Reported Medications She reportedly had an outpatient prescription for clindamycin. Allergies: Coded Allergies: aspirin (Unverified Allergy, Severe, MAKES SEIZURES WORSE, 02/08/17) codeine (Unverified Allergy, Severe, 02/08/17) mushroom (Unverified Allergy, Severe, ANAPHYLAXIS, 02/08/17) tramadol (Unverified Allergy, Severe, 02/08/17) cephalexin (Verified Allergy, Intermediate, seizure, 02/13/17) latex (Verified Allergy, Intermediate, rash, 02/13/17) vancomycin (Verified Allergy, Intermediate, hives, 02/13/17) Active Ordered Medications Current Medications Medications (Trade) Dose Ordered Sig/Fatmata Route Start Time Stop Time Status Last Admin (NS Flush) 2 ml BID IV FLUSH 02/13/17 21:00 02/14/17 08:15 (NS Flush) 2 ml UNSCH PRN IV FLUSH 02/13/17 19:15 Sodium Chloride 1,000 ml @ 100 mls/hr Q10H IV 02/13/17 20:00 02/13/17 20:57 Pharmacy Profile Note 0 ml @ 0 mls/hr UNSCH OTHER 02/13/17 19:15 Vancomycin HCl 1000 mg/Sodium Chloride 250 ml @ 250 mls/hr Q12H IV 02/14/17 06:00 02/14/17 04:50 (Tylenol) 650 mg Q6H PRN PO 02/13/17 19:15 (Percocet 5-325 Mg) 1 tab Q6H PRN PO 02/13/17 19:15 (Percocet 10-325 Mg) 1 tab Q6H PRN PO 02/13/17 19:15 02/14/17 10:24 (Morphine Inj) 4 mg Q3H PRN IV 02/13/17 19:15 02/14/17 16:36 (Narcan Inj) 0.4 mg UNSCH PRN IV 02/13/17 19:15 (Benadryl) 25 mg Q6H PRN PO 02/13/17 19:15 (Letty-Colace) 1 tab HS PO 02/13/17 21:00 Miscellaneous Information SPECIFIC LAB TO BE DRAWN:VANCO TROUGH DATE TO BE DR... ONCE ONCE .XX 02/15/17 05:45 02/15/17 05:46 Ceftriaxone Sodium 2000 mg/ Sodium Chloride 100 ml @ 200 mls/hr Q24H IV 02/13/17 21:00 02/13/17 23:02 (Ativan Inj) 2 mg UNSCH PRN IV 02/13/17 20:15 Family History Noncontributory Social History She smokes a couple packs of cigarettes daily. Recent history of heroin use. Smokes marijuana. Physical Exam Vital Signs Vital Signs Date Time Temp Pulse Resp B/P (MAP) Pulse Ox O2 Delivery O2 Flow Rate FiO2 02/14/17 08:00 71 02/14/17 08:00 98.2 69 20 119/85 (96) 98 02/14/17 07:15 Room Air 02/14/17 04:54 18 02/14/17 04:39 20 02/14/17 04:00 98.4 67 18 114/76 (89) 98 02/14/17 04:00 Room Air 02/14/17 00:00 98.5 82 18 101/57 (72) 97 02/14/17 00:00 Room Air 02/13/17 21:00 79 02/13/17 20:00 Room Air 02/13/17 19:39 02/13/17 19:27 82 18 116/73 (87) 100 Room Air 02/13/17 17:52 16 Physical Exam GENERAL: Awake and alert. N [place]. Somewhat angry. HEAD: Normocephalic. Atraumatic. EYES: Pupils equal round and reactive to light bilaterally. No scleral icterus. ENT: Moist oral mucosa. NECK: Trachea midline. CHEST: Nonlabored breathing. Tenderness to palpation in the right upper anterior chest wall. CARDIOVASCULAR: Regular rate and rhythm. EXTREMITIES: Right upper extremity edematous with thickened skin and induration in the upper inner arm with mild overlying erythema. 2+ radial pulse. No sensory deficits. Severe pain with extension of the elbow or external rotation of the shoulder. No fluctuance. SKIN: Warm, thickened skin upper inner arm. Laboratory Laboratory Tests Test 02/13/17 16:45 02/13/17 18:00 02/14/17 07:33 02/14/17 07:53 White Blood Count 16.6 13.1 Red Blood Count 4.39 4.04 Hemoglobin 11.1 9.9 Hematocrit 33.5 31.2 Mean Corpuscular Volume 76.3 77.3 Mean Corpuscular Hemoglobin 25.4 24.6 Mean Corpuscular Hemoglobin Concent 33.3 31.9 Red Cell Distribution Width 15.3 15.4 Platelet Count 390 398 Mean Platelet Volume 7.3 6.6 Neutrophils (%) (Auto) 83.3 76.7 Lymphocytes (%) (Auto) 9.5 14.9 Monocytes (%) (Auto) 6.5 7.0 Eosinophils (%) (Auto) 0.5 1.1 Basophils (%) (Auto) 0.2 0.3 Neutrophils # (Auto) 13.8 10.1 Lymphocytes # (Auto) 1.6 2.0 Monocytes # (Auto) 1.1 0.9 Eosinophils # (Auto) 0.1 0.1 Basophils # (Auto) 0.0 0.0 CBC Comment DIFF FINAL DIFF FINAL Differential Comment Prothrombin Time 10.7 Prothromb Time International Ratio 1.0 Activated Partial Thromboplast Time 30.6 Blood Urea Nitrogen 11 12 Creatinine 0.93 0.78 Random Glucose 89 90 Total Protein 6.6 Albumin 2.4 Calcium Level 7.9 7.7 Alkaline Phosphatase 151 Aspartate Amino Transf (AST/SGOT) 12 Alanine Aminotransferase (ALT/SGPT) 18 Total Bilirubin 0.6 Sodium Level 137 139 Potassium Level 3.4 3.5 Chloride Level 103 108 Carbon Dioxide Level 26.9 24.3 Anion Gap 7 7 Estimat Glomerular Filtration Rate 69 84 Lactic Acid Level 0.9 Total Creatine Kinase 23 Urine Color YELLOW Urine Turbidity CLOUDY Urine pH 6.0 Urine Specific [place] 1.012 Urine Protein 30 Urine Glucose (UA) NEG Urine Ketones NEG Urine Occult Blood SMALL Urine Nitrite NEG Urine Bilirubin NEG Urine Urobilinogen LESS THAN 2.0 Urine Leukocyte Esterase LARGE Urine RBC 10 Urine WBC 33 Urine Squamous Epithelial Cells 56 Urine Bacteria FEW Urine Yeast (Budding) RARE Microscopic Urinalysis Comment CATH-CULTURE IND Date/Time Source Procedure Growth Status 02/13/17 16:45 Blood Peripheral Aerobic Blood Culture - Preliminary NO GROWTH IN 1 DAY Resulted 02/13/17 16:45 Blood Peripheral Anaerobic Blood Culture - Preliminary NO GROWTH IN 1 DAY Resulted 02/13/17 18:00 Urine Catheterized Urine Urine Culture - Preliminary IMMATURE GROWTH - REINCUBATE Resulted Result Diagram: 02/14/17 0753 02/14/17 0733 Imaging Last Impressions Chest X-Ray 02/13/17 1614 Signed Impressions: Service Date/Time: Monday, February 13, 2017 16:48 - CONCLUSION: No acute cardiopulmonary disease. Ga Alonso MD Soft Tissue Ultrasound 02/13/17 0000 Signed Impressions: Service Date/Time: Monday, February 13, 2017 22:26 - CONCLUSION: 1. Probable phlegmonous changes in the upper inner arm without discrete fluid collection to suggest abscess. Frank Brito MD Assessment and Plan Assessment and Plan 36 yo F with RUE soft tissue infection. Ultrasound results reviewed. Ok for diet today. CT shoulder to more closely evaluate for deep infection. Ihsan Hargrove MD Feb 14, 2017 16:42
--- NOTE | 2017-02-14 19:56 | HHI.PR ---
Addendum to Inpatient Note Addendum Reason: Additional Documentation Additional Information Called by nursing at 1937 for pain management question. The patient recently received her breakthrough pain medication and is continuing to complain of pain at this time. The patient currently has so much pain that she refuses to leave her room for a CT of her afflicted limb. An extra dose of morphine at half the breakthrough dose was ordered for the pain. Discussed close monitoring with the nursing staff for any acute changes secondary to pain medication administration. Isacc Cervantes MD R1 Feb 14, 2017 19:56
[2017-02-14 20:00] VITALS: BP 118/81; PULSE 71; PULSE 79; RESP 20; TEMP 97.4; O2SAT 98
[2017-02-14] MEDS ORDERED: MORPHINE SULFATE 4 MG/ML INJ IV PUSH ONE (20:00)
[2017-02-14] MEDS ORDERED: IOHEXOL 350 MG/ML 10 ML VIAL (for RAD DIAG) IVCONTRAST ONE (20:22)
--- NOTE | 2017-02-14 20:51 | RADRPT ---
EXAM DATE/TIME: 02/14/2017 20:17 [facility] COMPARISON: CHEST SINGLE AP, February 13, 2017, 16:48. CHEST SINGLE AP, November 27, 2009, 13:32. INDICATIONS : Right upper extremity pain and swelling. IV CONTRAST: 72 cc Omnipaque 350 (iohexol) IV RADIATION DOSE: 24.04 CTDIvol (mGy) MEDICAL HISTORY : Seizures. SURGICAL HISTORY : None. ENCOUNTER: Initial ACUITY: 1 day PAIN SCALE: 7/10 LOCATION: Right upper extremity TECHNIQUE: Volumetric scanning of the shoulder was performed. Using automated exposure control and adjustment o f the mA and/or kV according to patient size, radiation dose was kept as low as reasonably achievable to obtain optimal diagnostic quality images. DICOM format image data is available electronically fo r review and comparison. FINDINGS: BONES: No evidence of acute fracture. The right clavicle is deformed and has formed a pseudoarthrosis at a p revious fracture site. Alignment is within normal limits. JOINTS: No evidence of joint narrowing or effusion. SOFT TISSUES: Irregularly marginated organized fluid collection is identified within the long head of the triceps m uscle. The collection is posterior to the neurovascular bundle. The collection extends distally beyon d the [id number]. It begins just below the teres minor muscle. It measures 4.7 x 3.3 cm in size. Subcutaneous inflammatory changes are seen within the fat. There are no other fluid collections. CONCLUSION: 1. Large organized intramuscular fluid collection within the long head of the triceps muscle just low the shoulder characteristic of an abscess. 2. Cutaneous and subcutaneous inflammation characteristic of cellulitis. 3. Intact shoulder joint. No evidence of acute bony abnormality or joint effusion 4. 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 Farhat Rodriguez MD on February 14, 2017 at 20:37 Board Certified Radiologist. This report was verified electronically.
[2017-02-14] MEDS: DOCUSATE SODIUM 50 MG/SENNA 8.6 MG TAB PO SCH (21:00)
[2017-02-14] MEDS: cefTRIAXone INJ 2,000 MG in SODIUM CHLORIDE 0.9% INJ 100 ML IV SCH (21:46)
[2017-02-14] MEDS ORDERED: ZOLPIDEM TARTRATE 5 MG TAB PO ONE (22:30)
[2017-02-15] VITALS: BP 122/80; PULSE 74; RESP 19; TEMP 98; O2SAT 97
[2017-02-15] MEDS: oxyCODONE/ACETAMINOPHEN 10 MG/325 MG TAB PO PRN ×4 (00:14→21:20)
[2017-02-15] MEDS: SODIUM CHLOR 0.9% 1000 ML INJ 1,000 ML IV SCH ×2 (00:14→21:22)
[2017-02-15] MEDS: MORPHINE SULFATE 4 MG/ML INJ IV PRN ×4 (03:40→23:34)
[2017-02-15] MEDS ORDERED: PHARMACY ORDERED LAB ONE ×2 (05:45→17:45)
[2017-02-15] MEDS: VANCOMYCIN INJ 1,000 MG in SODIUM CHLOR 0.9% 250 ML INJ 250 ML IV SCH ×2 (06:31→18:00)
[2017-02-15 07:06] LABS: HEMATOCRIT 30.6 % (35.0-46.0); MEAN CELL VOLUME 76.3 FL (80.0-100.0); MEAN CORPUSCULAR HEMOGLOBIN 25.2 PG (27.0-34.0); PLATELET COUNT 431 TH/MM3 (150-450); RED BLOOD COUNT 4.01 MIL/MM3 (4.00-5.30); RED CELL DISTRIBUTION WIDTH 15.4 % (11.6-17.2); REVIEW FLAG FINAL; WHITE BLOOD COUNT 11.7 TH/MM3 (4.0-11.0)
[2017-02-15 07:27] LABS: BICARBONATE 25.9 MEQ/L (21.0-32.0); POTASSIUM 3.8 MEQ/L (3.5-5.1)
[2017-02-15 08:00] VITALS: BP 121/79; PULSE 44; PULSE 68; PULSE 72; RESP 20; TEMP 99; O2SAT 96
[2017-02-15] MEDS: SODIUM CHLORIDE 0.9% FLUSH 10 ML FLUSH IV FLUSH SCH ×2 (08:37→21:23)
--- NOTE | 2017-02-15 10:43 | HHI.FPPN ---
Subjective Remarks Patient seen and examined this morning. No acute events overnight. Patient reports continued pain this morning. States she feels like her arm is still swollen. No new symptoms. Denies any fever/chills, shortness of breath, abdominal pain, leg pain. (Enrique Lin MD, R2) Objective Vitals Vital Signs Date Time Temp Pulse Resp B/P (MAP) Pulse Ox O2 Delivery O2 Flow Rate FiO2 02/15/17 00:00 Room Air 02/15/17 00:00 98.0 74 19 122/80 (94) 97 02/14/17 22:08 9 02/14/17 20:00 Room Air 02/14/17 20:00 79 02/14/17 20:00 97.4 71 20 118/81 (93) 98 02/14/17 16:00 98.3 71 20 131/90 (104) 98 02/14/17 12:00 98.4 71 20 122/82 (95) 96 I/O 02/14/17 02/14/17 02/14/17 02/15/17 02/15/17 02/15/17 07:00 15:00 23:00 07:00 15:00 23:00 Intake Total 642 ml 100 ml 1000 ml 250 ml Balance 642 ml 100 ml 1000 ml 250 ml Intake Oral 0 ml 0 ml IV Total 642 ml 100 ml 1000 ml 250 ml # Voids 1 4 # Bowel Movements 0 (Enrique Lin MD, R2) Result Diagram: 02/15/1762602/15/1727 Objective Remarks GEN: normally nourished, in NAD. LUNGS: clear A-P, respiratory effort is normal. CARDIOVASCULAR: RR without murmur or gallop. No significant edema. GI/ABD: soft without masses, without organomegaly. : no CVA tenderness NEURO: No focal deficits. SKIN: Exam of RUE shows erythema and induration of the medial humeral area extending up into her axilla. No palpable fluctuance is noted. PSYCH/MENTAL STATUS: Alert and oriented x 3. (Enrique Lin MD, R2) A/P Assessment and Plan 36-year-old female with history of epilepsy presents with painful cellulitis. We'll admit for IV antibiotics and general surgery consult for possible intervention. (Enrique Lin MD, R2) Attending Attestation Patient seen and examined. Case reviewed and discussed with the resident team. Agree with plan of care as discussed with me and documented in the resident note. (Lorne Hudson MD) Problem List: (1) Cellulitis ICD Codes: L03.90 - Cellulitis, unspecified Status: Acute Plan: Patient presents with cellulitis starting, the patient 3 weeks ago. Worsening pain, swelling, and redness. Unsure of initial injury, possible bite or wound. History of MRSA. Physical exam consistent with painful cellulitis; unclear demarcation; indurated. Extends from right inner arm up to axilla. CPK normal; US: Probably phlegmonous changes in upper inner arm CT RUE: Large organized intramuscular fluid collection within long head of triceps muscle; inflammation characteristic of cellulitis -Continue Vancomycin IV q12H; consult pharmacy for dosing adjustment -Consult general surgery due to significant pain and possible abscess -Appreciate recs -Recommend Ortho consult for muscular abscess -Orthopedics consulted-appreciate recs -IVF -Percocet, morphine PRN pain (2) UTI (urinary tract infection) ICD Codes: N39.0 - Urinary tract infection, site not specified Status: Acute Plan: Complaints of dysuria. UA significant for large LE, 10 RBC, 33 WBC, few bacteria. Initial urine cx-immature growth -Rocephin 2g daily -Repeat UA/culture pending -IVF (3) Epilepsy ICD Codes: G40.909 - Epilepsy, unspecified, not intractable, without status epilepticus Status: Chronic Plan: Patient states he has a history of epilepsy. Currently not on any medications. Unsure of last seizure. Doesn't see neurologist. -Continue to monitor -Seizure precautions -Ativan PRN seizure (4) FEN Status: Acute Plan: Fluids: NS @ 100mls/hr Electrolytes: monitor/replace PRN Nutrition: NPO after midnight DVT ppx: SCDs; no chemoppx due to possible surgery (Enrique Lin MD, R2) Problem Qualifiers (1) Cellulitis: Qualified Codes: L03.113 - Cellulitis of right upper limb (2) UTI (urinary tract infection): Qualified Codes: N30.01 - Acute cystitis with hematuria (3) Epilepsy: Qualified Codes: G40.919 - Epilepsy, unspecified, intractable, without status epilepticus Enrique Lin MD, R2 Feb 15, 2017 10:43 Lorne Hudson MD Feb 16, 2017 12:54
--- NOTE | 2017-02-15 10:55 | HHI.PR ---
Subjective Subjective Notes CT shoulder results reviewed. She has a fairly large intramuscular abscess of the triceps. I recommend orthopedic surgery evaluation. I'll sign off and be available as needed. Delvin,Ihsan LOYA Feb 15, 2017 10:54
[2017-02-15 12:00] VITALS: BP 142/92; PULSE 60; RESP 20; TEMP 98.5; O2SAT 95
[2017-02-15 16:00] VITALS: BP 131/82; PULSE 73; RESP 20; TEMP 98.4; O2SAT 98
[2017-02-15] MEDS ORDERED: LORazepam 2 MG/ML VIAL IV PUSH ONE (16:30)
[2017-02-15] MEDS ORDERED: GADODIAMIDE PF 287 MG/ML 5 ML VIAL (for RAD MRI) IV PUSH ONE (19:55)
[2017-02-15 20:00] VITALS: BP 164/95; PULSE 60; RESP 20; TEMP 98; O2SAT 98
[2017-02-15] MEDS: DOCUSATE SODIUM 50 MG/SENNA 8.6 MG TAB PO SCH (21:00)
--- NOTE | 2017-02-15 21:03 | RADRPT ---
EXAM DATE/TIME: 02/15/2017 19:53 [facility] COMPARISON: ABDOMEN KUB ONLY, February 15, 2017, 19:23. INDICATIONS : Abscess. CONTRAST: 12 cc Omniscan (gadodiamide) IV MEDICAL HISTORY : Hypotension. SURGICAL HISTORY : Arm. ENCOUNTER: Subsequent ACUITY: 4-6 days PAIN SCORE: 8/10 LOCATION: Right arm TECHNIQUE: Multiplanar multisequence MRI examination of the humerus was performed with and without contrast. FINDINGS: There is severe subcutaneous edema of the entire arm most severe medially and proximally. There is a heterogeneous T2 hyperintense collection along the medial aspect of the proximal arm. It demonstrates peripheral but no internal enhancement and measures approximately 4.0 x 3.1 x 5.4 cm. It has a thick ened enhancing rind. It is located posterior medial to the neurovascular structures. Edema extends in to the right axilla surrounding the neurovascular structures. There is muscular edema involving the t riceps muscles without definite abnormal enhancement. Bone marrow signal is within normal limits with out findings to indicate osteomyelitis. CONCLUSION: 1. There is an abscess in the proximal medial arm subcutaneous tissues measuring up to 5.4 cm. 2. There is severe surrounding subcutaneous edema which extends into the right axilla and surrounds t he neurovascular structures. 3. There is muscular edema within the triceps. Marcio Bettencourt MD on February 15, 2017 at 20:58 Board Certified Radiologist. This report was verified electronically.
[2017-02-15] MEDS: cefTRIAXone INJ 2,000 MG in SODIUM CHLORIDE 0.9% INJ 100 ML IV SCH (21:22)
--- NOTE | 2017-02-15 22:03 | RADRPT ---
EXAM DATE/TIME: 02/15/2017 19:23 [facility] COMPARISON: No previous studies available for comparison. INDICATIONS : Evaluate for foreign body. Clear for MRI. Patient stated that she swallowed metal. MEDICAL HISTORY : None. SURGICAL HISTORY : None. ENCOUNTER: Initial ACUITY: 1 day PAIN SCORE: 0/10 LOCATION: Abdomen. FINDINGS: 2 frontal views the abdomen demonstrate no metallic radiopaque foreign bodies. Otherwise, no acute fi nding is present. There is mild consolidation at the left lung base. CONCLUSION: 1. No metallic foreign body is present to preclude MRI. 2. Mild consolidation in the left lung base. Marcio Bettencourt MD on February 15, 2017 at 22:01 Board Certified Radiologist. This report was verified electronically.
[2017-02-15 22:14] VITALS: PULSE 70
--- NOTE | 2017-02-15 22:36 | RADRPT ---
EXAM DATE/TIME: 02/15/2017 19:53 [facility] COMPARISON: CHEST SINGLE AP, February 13, 2017, 16:48. INDICATIONS : Chest pain. CONTRAST: 12 cc Omniscan (gadodiamide) IV MEDICAL HISTORY : Hypotension. SURGICAL HISTORY : Arm. ENCOUNTER: Subsequent ACUITY: 4-6 days PAIN SCORE: 8/10 LOCATION: chest TECHNIQUE: Multiplanar multisequence MR imaging of the sternum was performed. FINDINGS: Examination quality is severely degraded secondary to patient's inability to cooperate with examinati on. Additionally, there are multiple areas of susceptibility artifact on the anterior chest wall. I d o not see a definite sternal abnormality. There is poor homogeneity of fat suppression making evaluat ion for bone marrow edema and possible. No definite subcutaneous fluid collection or abscess is ident ified. There are small bilateral pleural effusions with compressive atelectasis. CONCLUSION: 1. Examination is severely degraded by motion artifact. I cannot confidently exclude a sternal abnorm ality but no definite abnormality is seen. Consider chest CT if clinical suspicion persists for an ab normality. 2. Small bilateral pleural effusions with associated compressive atelectasis. Marcio Bettencourt MD on February 15, 2017 at 22:30 Board Certified Radiologist. This report was verified electronically.
[2017-02-15] MEDS: ZOLPIDEM TARTRATE 5 MG TAB PO PRN (23:34)
[2017-02-16] VITALS: BP 134/88; PULSE 64; RESP 20; TEMP 98.2; O2SAT 97
[2017-02-16] MEDS: oxyCODONE/ACETAMINOPHEN 10 MG/325 MG TAB PO PRN ×2 (03:18→09:18)
[2017-02-16 04:00] VITALS: BP 140/82; PULSE 62; RESP 20; TEMP 98.1; O2SAT 96
[2017-02-16] MEDS ORDERED: PHARMACY ORDERED LAB ONE (05:45)
[2017-02-16 08:03] VITALS: BP 138/84; PULSE 56; RESP 17; TEMP 97.8; O2SAT 96
--- NOTE | 2017-02-16 08:31 | MB ---
cc: CHARBEL QUIROZ DATE OF CONSULTATION 02/15/2017 DATE OF 1980 CONSULTATIONS Is by orthopedics, provider is DAMIÁN Pappas. CHIEF COMPLAINT Right upper extremity pain and swelling. HISTORY OF PRESENT ILLNESS This is a 36-year-old white female who initially came to the emergency department with complaints of right upper extremity pain and swelling for approximately 3-4 weeks. The patient states that she did go to a previous ER the day before her arrival at [place] and was treated with IV antibiotics. The patient was to be admitted but ended up leaving prior to admission. 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 The patient was treated for this with IV antibiotics in June of 2015. The patient currently denies any fevers or chills. The patient is worried that she can haves an infection of the right upper extremity which may be spreading to her chest. The patient does report having some tenderness to the sternum and right chest wall. The patient denies any tenderness or pain to the right elbow or wrist. The patient does have a history of multidrug use including heroin, cocaine, marijuana, opioids, and uppers. The patient states that she last used heroin 2 weeks ago. The patient currently denies any shortness of breath, , nausea, or vomiting. The patient describes her pain has 10/10 about the right upper extremity. This is limiting her ability to perform normal activities of daily living secondary to pain. REVIEW OF SYSTEMS Negative times 12 except for what is stated in the HPI. PAST MEDICAL HISTORY Includes: 1. Kidney stones. 2. Seizures. PAST SURGICAL HISTORY Includes right wrist surgery. SOCIAL HISTORY Alcohol. The patient admits to drinking liquor occasionally. Tobacco use daily which includes one pack per day. Substance use includes opiates, cocaine, amphetamines, heroin, and marijuana. ALLERGIES INCLUDE ASPIRIN, CODEINE, MUSHROOMS, TRAMADOL, CEPHALEXIN, LATEX, AND VANCOMYCIN. PHYSICAL EXAMINATION VITAL SIGNS: Are as follows temperature 99, heart rate 68, blood pressure 121/79, pulse ox 96% on room air. GENERAL: The patient is well-developed and slightly disheveled white female in mild distress. SKIN: There is a large area of cellulitis about the right upper extremity with induration, tenderness, and mild erythema. There is a small amount of fluctuance, however most of this area is very firm. The erythema does translate to the right axilla. I do not appreciate any erythema about the right chest. The patient does have multiple puncture wounds about the hands and arms. The patient has small scabs covering her entire body. HEENT: The patient's head is atraumatic and normocephalic. EYES: BONNIE with extraocular movements intact. EARS, NOSE, AND THROAT: The patient has no nasal bleeding or discharge and mucous membranes are pink and moist. NECK: Supple. CARDIOVASCULAR: There is regular rate and rhythm. RESPIRATORY: There is symmetric chest wall rise and nonlabored breathing. MUSCULOSKELETAL: The patient has no obvious deformities. The patient is able to move her bilateral wrists and elbows without limitation and has no tenderness to palpation. The patient does have limited range of motion of the right shoulder and tenderness about the right shoulder. The patient also has some mild tenderness about the sternum with moderate tenderness about the right chest wall. The patient moves her bilateral ankles, knees and hips without limitation and has no tenderness to palpation. NEUROLOGIC: The patient is alert and oriented x3 with no obvious cranial nerve deficits. PSYCHIATRIC: The patient has a flat affect and appropriate speech. LABORATORY DATA Labs taken on 02/15/2017 shows white blood cell count of 11.7, hemoglobin 10.1, hematocrit 30.6, platelets 431. Creatinine is 0.91, and the glucose is 93. Urinalysis taken on 02/13/2017 does show a large leukocyte esterase and negative nitrites with few bacteria. Urine culture shows mixed ketty. Blood cultures show no growth in [address] of the upper extremity with IV contrast right side on 02/14/2017 reads as large organized intramuscular fluid collection within the long head of the triceps muscle just low to the shoulder characteristic of an abscess. There is cutaneous and subcutaneous inflammation characteristic of cellulitis. There is intact shoulder joint with no evidence of bony abnormality or joint effusion. 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 I have reviewed the images and agree with this interpretation. There is also a soft tissue ultrasound taken on 02/13/2017 which shows probable changes in the upper inner arm without discrete fluid collection to suggest abscess. IMPRESSION 1. Polysubstance abuse. 2. Right upper extremity cellulitis. 3. Right upper extremity abscess. 4. Right chest wall pain, rule out abscess. MEDICAL DECISION MAKING This is a complex situation as the patient does have a history of MRSA infection which was located about the sternum. The patient did not have any surgical intervention to manage this and was placed on a long-term antibiotics which ultimately resulted in improvement in symptoms. The patient does have a history of injectable drug use which is a probable cause for her current infection. I had a lengthy discussion today regarding the patient's need for surgery which would include I&D of the right upper extremity with possible wound VAC application. I would like, however, to obtain further imaging prior to taking the patient to surgery. I am going to order an MRI of the right upper extremity as well as the right chest due to her current complaints of chest pain and tenderness to palpation along with her history of infection. This will ultimately determine the direction of her surgery. I did have a lengthy discussion today regarding the risk and benefits of surgery as well as what to expect for postoperative rehabilitation. The patient understands these risks and does want to proceed with surgical management. Risks include but are not limited to continued infection, heart attack, stroke, injury to nerves and vessels, continued pain despite surgery, inability to use the right upper extremity and . The patient will be n.p.o. after midnight for planned surgery tomorrow. The patient will likely require long-term IV antibiotics. We will consult infectious disease for management of this. I have reviewed the impression and plan of care with Dr. Quiroz and he agrees with this documentation. Dictated by DAMIÁN Knox MD YONIS Hicks/ADIEL /3:08 PM /8:23 AM
[2017-02-16 08:54] LABS: HEMATOCRIT 28.4 % (35.0-46.0); MEAN CELL VOLUME 77.4 FL (80.0-100.0); MEAN CORPUSCULAR HEMOGLOBIN 25.8 PG (27.0-34.0); MEAN CORPUSCULAR HGB CONC 33.3 % (32.0-36.0); PLATELET COUNT 348 TH/MM3 (150-450); RED BLOOD COUNT 3.67 MIL/MM3 (4.00-5.30); RED CELL DISTRIBUTION WIDTH 15.7 % (11.6-17.2); REVIEW FLAG FINAL; WHITE BLOOD COUNT 7.5 TH/MM3 (4.0-11.0)
[2017-02-16 08:59] LABS: BICARBONATE 26.8 MEQ/L (21.0-32.0); POTASSIUM 3.9 MEQ/L (3.5-5.1)
[2017-02-16] MEDS: SODIUM CHLORIDE 0.9% FLUSH 10 ML FLUSH IV FLUSH SCH ×2 (09:00→19:50)
[2017-02-16] MEDS: VANCOMYCIN INJ 1,000 MG in SODIUM CHLOR 0.9% 250 ML INJ 250 ML IV SCH (09:32)
[2017-02-16] MEDS: MORPHINE SULFATE 4 MG/ML INJ IV PRN ×4 (09:38→21:09)
[2017-02-16] MEDS ORDERED: GENTAMICIN SULFATE 80 MG/2 ML VIAL ONE (10:11)
[2017-02-16] MEDS ORDERED: FAMOTIDINE 20 MG/2 ML VIAL ONE (10:46)
[2017-02-16] MEDS ORDERED: ACETAMINOPHEN 1000 MG/100 ML 100 ML IV ONE (10:46)
[2017-02-16] MEDS ORDERED: MIDAZOLAM HCL 2 MG/2 ML VIAL ONE (10:46)
[2017-02-16] MEDS ORDERED: fentaNYL CITRATE 250 MCG/5 ML AMP ONE ×2 (10:48→12:42)
[2017-02-16] MEDS ORDERED: ONDANSETRON HCL 4 MG/2 ML VIAL IVP PRN (12:00)
[2017-02-16] MEDS ORDERED: ONDANSETRON HCL 4 MG/2 ML VIAL IV PUSH ONE (12:00)
[2017-02-16] MEDS ORDERED: Post-op Orders (for Pharmacy) MISC XX ONE (12:00)
[2017-02-16] MEDS ORDERED: PROPOFOL 200 MG/20 ML AMP IV ONE (12:00)
--- NOTE | 2017-02-16 12:09 | PD.OP ---
cc: Santos Mitchell MD Operative Report Date of Surgery: Feb 16, 2017 Preoperative Diagnosis: Right upper arm abscess Postoperative Diagnosis: Same Procedure: Right upper arm irrigation and debridement of deep abscess Anesthesia: Gen. Surgeon: aSntos Mitchell It Security Consultant(s): DAMIÁN Novoa The surgical procedure was assisted by my Advanced Registered Nurse Practitioner. My FISHERIES TECHNICAL OFFICER presence was necessary throughout this case for the manipulation and positioning of the surgical extremity. My FISHERIES TECHNICAL OFFICER was assisting me throughout the duration of this procedure. The skill set of an Advance Registered Nurse Practitioner was medically necessary to complete this procedure. During the surgical case, the surgical attendant was working at the back table and the Advance Registered Nurse Practitioner was directly assisting me. Operation and Findings: Justification for the procedure. The patient had a preoperative MRI and MRI of the chest wall the findings showed significant abscess formation in the upper arm medial to the triceps musculature. There was significant swelling and fluid that trialed up the neurovascular bundle into the chest wall region. However I did not appreciate specific abscess up in that region. The MRI of the chest had quite a bit of motion artifact. I discussed the risks and benefits of surgical management in detail with the patient prior to her going back to the operative theater. She understands the near serious nature of this. She does have numbness of all of her fingers which is likely due to the purulence surrounding the neurovascular bundle. She was able to move her fingers well. She had an intact extensor pollicis longus, abductor pollicis brevis, and dorsal interossei. She had 2+ radial pulse. She could require further surgical management. With surgery she could continue to have infection. There is potential chance for injury to the neurovascular bundle. She could have medical convocation such as heart attack, stroke, pulmonary embolus, . The patient was brought back to the operative theater. Gen. anesthesia was administered. The right upper extremity was prepped in the usual sterile fashion. Per the MRI we made an incision on the medial, posterior aspect of the arm which extended up towards the axilla. The subcutaneous tissue was quite thickened. Once we got through this layer we identified approximately 100 cc of gross purulence. There was quite a lot of thickened septated tissue which did require sharp debridement. We were able to digitally palpate up along the neurovascular bundle into the chest. I did not appreciate further abscess deep up in the chest following this pathway. We could feel how the fluid had started to dissect a path in this region. We didn't incise the bur to make sure no further abscess was identified. We thoroughly irrigated with 6 L of saline. We decided to move forward with placement of a flat drain which was sewn into place. We closed skin with 2-0 Monocryl with 3-0 nylon. The skin was still in good condition therefore we felt closure was possible as opposed to the use of a VAC device. Postoperative plan: Infectious disease consultation, continue with intravenous antibiotics and follow cultures. Follow drain output. It is possible surgical management, of repeat nature could be required. Santos Mitchell MD Feb 16, 2017 12:09
[2017-02-16] MEDS ORDERED: PERC5TAB12 PO (12:10)
--- NOTE | 2017-02-16 12:22 | HHI.FPPN ---
Subjective Remarks Patient states that she is doing well this morning. She was getting prepped for surgery. No complaints. No fevers or chills, no nausea or vomiting, no constipation/ diarrhea, no abdominal pain, no chest pain or shortness of breath. (Kaylin Gregorio MD R1) Objective Vitals Vital Signs Date Time Temp Pulse Resp B/P (MAP) Pulse Ox O2 Delivery O2 Flow Rate FiO2 02/16/17 08:03 97.8 56 17 138/84 (102) 96 02/16/17 04:00 Room Air 02/16/17 04:00 98.1 62 20 140/82 (101) 96 02/16/17 00:00 Room Air 02/16/17 00:00 98.2 64 20 134/88 (103) 97 02/15/17 22:14 70 02/15/17 20:00 98.0 60 20 164/95 (118) 98 02/15/17 16:00 98.4 73 20 131/82 (98) 98 I/O 02/15/17 02/15/17 02/15/17 02/16/17 02/16/17 02/16/17 06:59 14:59 22:59 06:59 14:59 22:59 Intake Total 1000 ml 250 ml 1590 ml 480 ml Output Total 500 ml Balance 1000 ml 250 ml 1590 ml -20 ml Intake Oral 240 ml 480 ml IV Total 1000 ml 250 ml 1350 ml Output Urine Total 500 ml # Voids 2 3 # Bowel Movements 0 (Kaylin Gregorio MD R1) Result Diagram: 02/16/17 0729 02/16/17 0729 Imaging Last 48 hours Impressions Upper Extremity MRI 02/15/17 0000 Signed Impressions: Service Date/Time: Wednesday, February 15, 2017 19:53 - CONCLUSION: 1. There is an abscess in the proximal medial arm subcutaneous tissues measuring up to 5.4 cm. 2. There is severe surrounding subcutaneous edema which extends into the right axilla and surrounds the neurovascular structures. 3. There is muscular edema within the triceps. Marcio Bettencourt MD Chest MRI 02/15/17 0000 Signed Impressions: Service Date/Time: Wednesday, February 15, 2017 19:53 - CONCLUSION: 1. Examination is severely degraded by motion artifact. I cannot confidently exclude a sternal abnormality but no definite abnormality is seen. Consider chest CT if clinical suspicion persists for an abnormality. 2. Small bilateral pleural effusions with associated compressive atelectasis. Marcio Bettencourt MD Abdomen X-Ray 02/15/17 0000 Signed Impressions: Service Date/Time: Wednesday, February 15, 2017 19:23 - CONCLUSION: 1. No metallic foreign body is present to preclude MRI. 2. Mild consolidation in the left lung base. Marcio Bettencourt MD Objective Remarks GEN: normally nourished, in NAD. LUNGS: clear A-P, respiratory effort is normal. CARDIOVASCULAR: RR without murmur or gallop. No significant edema. GI/ABD: soft without masses, without organomegaly. : no CVA tenderness NEURO: No focal deficits. SKIN: Exam of RUE shows erythema and induration of the medial humeral area extending up into her axilla. No palpable fluctuance is noted. PSYCH/MENTAL STATUS: Alert and oriented x 3. (Kaylin Gregorio MD R1) A/P Assessment and Plan 36-year-old female with history of epilepsy presents with painful cellulitis. We'll admit for IV antibiotics and general surgery consult for possible intervention. Discharge Planning per clearance from ortho and antibiotic recs from ID (Kaylin Gregorio MD R1) Attending Attestation Patient seen and examined. Case reviewed and discussed with the resident team. Agree with plan of care as discussed with me and documented in the resident note. (Lorne Hudson MD) Problem List: (1) Cellulitis ICD Codes: L03.90 - Cellulitis, unspecified Status: Acute Plan: Patient presents with cellulitis starting, the patient 3 weeks ago. Worsening pain, swelling, and redness. Unsure of initial injury, possible bite or wound. History of MRSA. Physical exam consistent with painful cellulitis; unclear demarcation; indurated. Extends from right inner arm up to axilla. CPK normal; US: Probably phlegmonous changes in upper inner arm CT RUE: Large organized intramuscular fluid collection within long head of triceps muscle; inflammation characteristic of cellulitis Blood cultures negative x 3 days -Continue Vancomycin IV q12H; consult pharmacy for dosing adjustment (02/14- ) -Consult Orthopedic Surgery, appreciate recs * Patient scheduled for I&D with possible wound vac to be done this morning * They will be consulting ID for management of antibiotics -IVF -Percocet, morphine PRN pain (2) UTI (urinary tract infection) ICD Codes: N39.0 - Urinary tract infection, site not specified Status: Acute Plan: Complaints of dysuria. UA significant for large LE, 10 RBC, 33 WBC, few bacteria. Initial urine cx-immature growth -Rocephin 2g daily -Repeat UA/culture pending -IVF (3) Epilepsy ICD Codes: G40.909 - Epilepsy, unspecified, not intractable, without status epilepticus Status: Chronic Plan: Patient states he has a history of epilepsy. Currently not on any medications. Unsure of last seizure. Doesn't see neurologist. -Continue to monitor -Seizure precautions -Ativan PRN seizure (4) FEN Status: Acute Plan: Fluids: NS @ 100mls/hr Electrolytes: monitor/replace PRN Nutrition: NPO after midnight DVT ppx: SCDs; no chemoppx due to possible surgery (Kaylin Gregorio MD R1) Problem Qualifiers (1) Cellulitis: Qualified Codes: L03.113 - Cellulitis of right upper limb (2) UTI (urinary tract infection): Qualified Codes: N30.01 - Acute cystitis with hematuria (3) Epilepsy: Qualified Codes: G40.919 - Epilepsy, unspecified, intractable, without status epilepticus Kaylin Gregorio MD R1 Feb 16, 2017 12:22 Lorne Hudson MD Feb 17, 2017 08:28
[2017-02-16] MEDS ORDERED: *morphine SULFATE 8 MG/ML PERIprocedure ONLY ONE (12:42)
[2017-02-16] MEDS: DEXT 5%-NACL 0.45% 1000 ML INJ 1,000 ML IV SCH ×2 (13:00→23:30)
[2017-02-16] MEDS ORDERED: oxyCODONE/ACETAMINOPHEN 10 MG/325 MG TAB PO PRN (15:00)
--- NOTE | 2017-02-16 15:06 | HHI.IDPN ---
Note Infectious Disease Note Brief ID Note 3:00 pm Came by to see patient in consultation per request by ortho Tried to get further history from patient and she has not been very cooperative with history and kept saying its in the chart She is eating when I saw her and would like for her to finish her meal I will return another tomorrow to complete my full consultation as I could not do that today Her RN was in patient's room when initially say her. 4:35 pm Came back to see patient again in consultation She was refusing her patient monitor Her nurse was there and she did not want to be seen by me. I will inform Shanique Murcia MD, MD Feb 16, 2017 15:06
[2017-02-16 16:03] VITALS: BP 127/82; PULSE 76; RESP 18; TEMP 98.1; O2SAT 95
[2017-02-16] MEDS: VANCOMYCIN INJ 1,250 MG in SODIUM CHLOR 0.9% 250 ML INJ 250 ML IV SCH (18:05)
[2017-02-16] MEDS: oxyCODONE/ACETAMINOPHEN 5 MG/325 MG TAB PO PRN (19:49)
[2017-02-16] MEDS: DOCUSATE SODIUM 50 MG/SENNA 8.6 MG TAB PO SCH (19:50)
[2017-02-16] MEDS: cefTRIAXone INJ 2,000 MG in SODIUM CHLORIDE 0.9% INJ 100 ML IV SCH (19:50)
[2017-02-16 20:37] VITALS: BP 119/68; PULSE 70; RESP 18; TEMP 98.2; O2SAT 95
[2017-02-17] VITALS (7 sets, daily range): BP systolic 112–135; BP diastolic 66–86; PULSE 61–74; RESP 17–18; TEMP 97.7–98.3; O2SAT 96–98
[2017-02-17] MEDS: MORPHINE SULFATE 4 MG/ML INJ IV PRN ×8 (00:20→23:35)
[2017-02-17] MEDS: oxyCODONE/ACETAMINOPHEN 5 MG/325 MG TAB PO PRN ×2 (03:15→09:17)
[2017-02-17] MEDS: VANCOMYCIN INJ 1,250 MG in SODIUM CHLOR 0.9% 250 ML INJ 250 ML IV SCH ×2 (05:04→17:55)
[2017-02-17 07:53] LABS: AUTOMATED NEUTROPHIL # 7.3 TH/MM3 (1.8-7.7); BASOPHIL % 0.4 % (0.0-2.0); EOSINOPHIL # 0.1 TH/MM3 (0-0.4); EOSINOPHIL % 0.7 % (0.0-4.0); HEMATOCRIT 29.9 % (35.0-46.0); HEMO FLAGS DIFF FINAL; LYMPH % 22.9 % (9.0-44.0); LYMPHOCYTE # 2.5 TH/MM3 (1.0-4.8); MEAN CORPUSCULAR HEMOGLOBIN 25.2 PG (27.0-34.0); MEAN CORPUSCULAR HGB CONC 32.8 % (32.0-36.0); MONO % 8.4 % (0.0-8.0); NEUT % 67.6 % (16.0-70.0); PLATELET COUNT 401 TH/MM3 (150-450); RED BLOOD COUNT 3.88 MIL/MM3 (4.00-5.30); RED CELL DISTRIBUTION WIDTH 15.5 % (11.6-17.2); WHITE BLOOD COUNT 10.8 TH/MM3 (4.0-11.0)
[2017-02-17 08:24] LABS: POTASSIUM 4.6 MEQ/L (3.5-5.1)
[2017-02-17] MEDS: DEXT 5%-NACL 0.45% 1000 ML INJ 1,000 ML IV SCH ×3 (09:30→19:51)
[2017-02-17] MEDS: SODIUM CHLORIDE 0.9% FLUSH 10 ML FLUSH IV FLUSH SCH ×2 (10:21→21:00)
--- NOTE | 2017-02-17 12:54 | PD.ORT.PN ---
Subjective Post Op Day #: 1 Subjective Remarks Patient is resting in bed in NAD. Patient reports moderate pain to the right upper arm. Objective Vitals Vital Signs Date Time Temp Pulse Resp B/P (MAP) Pulse Ox O2 Delivery O2 Flow Rate FiO2 02/17/17 12:28 97.9 74 18 118/73 (88) 96 02/17/17 08:03 98.3 61 18 135/86 (102) 98 02/17/17 04:31 97.8 62 18 125/82 (96) 97 02/17/17 04:15 20 02/17/17 04:15 20 02/17/17 01:01 97.7 68 18 112/66 (81) 98 02/16/17 20:37 98.2 70 18 119/68 (85) 95 02/16/17 20:00 Room Air 02/16/17 16:03 98.1 76 18 127/82 (97) 95 02/16/17 13:00 97.5 61 14 152/96 (114) 100 Nasal Cannula 2 I/O 02/16/17 02/16/17 02/16/17 02/17/17 02/17/17 02/17/17 07:00 15:00 23:00 07:00 15:00 23:00 Intake Total 480 ml 1050 ml 360 ml 1230 ml Output Total 500 ml 200 ml 390 ml 10 ml Balance -20 ml 850 ml -30 ml 1220 ml Intake Oral 480 ml 360 ml 480 ml IV Total 250 ml 750 ml Other 800 ml Output Urine Total 500 ml 350 ml Drainage Total 40 ml 10 ml Estimated Blood Loss 200 ml # Voids 3 2 # Bowel Movements 0 Result Diagram: 02/17/1770602/17/17706 Procedures Right upper arm I & D of deep abscess Objective Remarks Dressing and drain intact. Drain has small serosanguineous drainage. Moderate edema to the RUE. EPL/APB/KELLIE intact. 2+ radial pulse. Compartments soft. + sensation intact to light touch. Intraoperative cx show no growth as of now. Assessment & Plan Ortho Post Op Day #: 1 Problem List: Assessment and Plan POD #1: Right upper arm I & D of deep abscess 1. Early ROM or RUE. Limit WB initially 2. Maintain drain until drainage lessens. Will reevaluate tomorrow 3. Ice and elevation to the RUE 4. ID to manage ABX 5. Awaiting final intraoperative CX results. No growth as of now. 6. Patient will f/u with Dr. Mitchell or DAMIÁN Weller in 1-2 weeks after discharge. Rafy Colunga Feb 17, 2017 12:54
[2017-02-17] MEDS: oxyCODONE/ACETAMINOPHEN 10 MG/325 MG TAB PO PRN ×3 (14:47→22:20)
--- NOTE | 2017-02-17 16:18 | OTSOAPIP ---
TIME SESSION COMPLETED: PM TREATMENT TIME: 5 MINS. CHART REVIEWED. PATIENT ADMITTED WITH RIGHT UPPER EXTREMITY ABSCESS S/P RIGHT UPPER ARM IRRIGATION AND DEBRIDEMENT OF DEEP ABSCESS. ATTEMPTED TO EVALUATE PATIENT, PATIENT REFUSED STATING THAT SHE WAS IN TO MUCH PAIN. PATIENT WAS EDUCATED ON THE IMPORTANCE OF THERAPY HOWEVER PATIENT CONTINUE TO REFUSED. PLAN: WILL ATTEMPTED TO SEE PATIENT NEXT TREATMENT DAY NOTE: NO TREATMENT RENDERED PER PATIENTS REQUEST . INTERDISCIPLINARY COMMUNICATION: NURSING INFORMED OF THE ABOVE Therapist: ROBYN PORTILLO OTR/Lauryn Signature on file
[2017-02-17] MEDS: cefTRIAXone INJ 2,000 MG in SODIUM CHLORIDE 0.9% INJ 100 ML IV SCH (19:50)
--- NOTE | 2017-02-17 20:48 | HHI.FPPN ---
Subjective Remarks Patient states that she is in pain this morning. She feels that the pain has moved into her right shoulder and made chest. She would like her pain medications readjusted. No fever or chills, no nausea or vomiting, no shortness of breath, no abdominal pain, no constipation or diarrhea. (Kaylin Gregorio MD R1) Objective Vitals Vital Signs Date Time Temp Pulse Resp B/P (MAP) Pulse Ox O2 Delivery O2 Flow Rate FiO2 02/17/17 16:22 98.3 71 17 121/79 (93) 96 02/17/17 12:28 97.9 74 18 118/73 (88) 96 02/17/17 08:03 98.3 61 18 135/86 (102) 98 02/17/17 08:00 73 02/17/17 08:00 96 Room Air 02/17/17 04:31 97.8 62 18 125/82 (96) 97 02/17/17 04:15 20 02/17/17 04:15 20 02/17/17 01:01 97.7 68 18 112/66 (81) 98 02/16/17 20:37 98.2 70 18 119/68 (85) 95 I/O 02/16/17 02/16/17 02/16/17 02/17/17 02/17/17 02/17/17 06:59 14:59 22:59 06:59 14:59 22:59 Intake Total 480 ml 1050 ml 360 ml 1230 ml 1251.5 ml Output Total 500 ml 200 ml 390 ml 10 ml 600 ml Balance -20 ml 850 ml -30 ml 1220 ml 651.5 ml Intake Oral 480 ml 360 ml 480 ml 720 ml IV Total 250 ml 750 ml 531.5 ml Other 800 ml Output Urine Total 500 ml 350 ml 600 ml Drainage Total 40 ml 10 ml Estimated Blood Loss 200 ml # Voids 3 2 # Bowel Movements 0 0 (Kaylin Gregorio MD R1) Result Diagram: 02/17/17 0707 02/17/17 0707 Objective Remarks GEN: normally nourished, in NAD. LUNGS: clear A-P, respiratory effort is normal. CARDIOVASCULAR: RR without murmur or gallop. No significant edema. GI/ABD: soft without masses, without organomegaly. NEURO: No focal deficits. SKIN: Exam of RUE is bandaged C/D/I with a drain with serosanguineous fluid. PSYCH/MENTAL STATUS: Alert and oriented x 3. (Kaylin Gregorio MD R1) A/P Assessment and Plan 36-year-old female with history of epilepsy presents with painful cellulitis. We'll admit for IV antibiotics and general surgery consult for possible intervention. Discharge Planning per clearance from ortho and antibiotic recs from ID (Kaylin Gregorio MD R1) Attending Attestation Patient seen and examined. Case reviewed and discussed Agree with plan of care as discussed with me and documented in the resident note Doing well post-op Appreciate ID input regarding antibiotics Await culture results (Sasha Capps MD) Problem List: (1) Cellulitis ICD Codes: L03.90 - Cellulitis, unspecified Status: Acute Plan: Patient presents with cellulitis starting, the patient 3 weeks ago. Worsening pain, swelling, and redness. Unsure of initial injury, possible bite or wound. History of MRSA. Physical exam consistent with painful cellulitis; unclear demarcation; indurated. Extends from right inner arm up to axilla. CPK normal; US: Probably phlegmonous changes in upper inner arm CT RUE: Large organized intramuscular fluid collection within long head of triceps muscle; inflammation characteristic of cellulitis Blood cultures negative x 4 days -Continue Vancomycin IV q12H; consult pharmacy for dosing adjustment (02/14- ) -Consult Orthopedic Surgery, appreciate recs * Patient postop day 1 for I&D with drain * Wound culture group A beta strep positive -ID consult., Appreciate recommendations * Patient refused to see ID 2 -IVF -Percocet, morphine PRN pain (2) UTI (urinary tract infection) ICD Codes: N39.0 - Urinary tract infection, site not specified Status: Acute Plan: Complaints of dysuria. UA significant for large LE, 10 RBC, 33 WBC, few bacteria. Initial urine cx-immature growth -Rocephin 2g daily -Repeat UA/culture pending -IVF (3) Epilepsy ICD Codes: G40.909 - Epilepsy, unspecified, not intractable, without status epilepticus Status: Chronic Plan: Patient states he has a history of epilepsy. Currently not on any medications. Unsure of last seizure. Doesn't see neurologist. -Continue to monitor -Seizure precautions -Ativan PRN seizure (4) FEN Status: Acute Plan: Fluids: NS @ 100mls/hr Electrolytes: monitor/replace PRN Nutrition: NPO after midnight DVT ppx: SCDs; no chemoppx due to possible surgery (Kaylin Gregorio MD R1) Problem Qualifiers (1) Cellulitis: Qualified Codes: L03.113 - Cellulitis of right upper limb (2) UTI (urinary tract infection): Qualified Codes: N30.01 - Acute cystitis with hematuria (3) Epilepsy: Qualified Codes: G40.919 - Epilepsy, unspecified, intractable, without status epilepticus Kaylin Gregorio MD R1 Feb 17, 2017 20:48 Sasha Capps MD Feb 18, 2017 15:48
[2017-02-17] MEDS: DOCUSATE SODIUM 50 MG/SENNA 8.6 MG TAB PO SCH (21:00)
[2017-02-17] MEDS: ZOLPIDEM TARTRATE 5 MG TAB PO PRN (23:36)
[2017-02-18] MEDS: oxyCODONE/ACETAMINOPHEN 10 MG/325 MG TAB PO PRN ×5 (02:14→22:17)
[2017-02-18] MEDS: MORPHINE SULFATE 4 MG/ML INJ IV PRN ×2 (03:21→08:24)
[2017-02-18 04:00] VITALS: BP 132/92; PULSE 68; RESP 20; TEMP 98.1; O2SAT 97
[2017-02-18] MEDS ORDERED: PHARMACY ORDERED LAB ONE (05:45)
[2017-02-18] MEDS: DEXT 5%-NACL 0.45% 1000 ML INJ 1,000 ML IV SCH ×2 (06:36→15:30)
[2017-02-18] MEDS: VANCOMYCIN INJ 1,250 MG in SODIUM CHLOR 0.9% 250 ML INJ 250 ML IV SCH ×2 (06:37→18:00)
[2017-02-18] MEDS ORDERED: CALCIUM CARBONATE 1.25 GM (CA 500 MG) TAB PO ONE (07:00)
[2017-02-18 08:00] VITALS: BP 122/89; PULSE 67; RESP 17; TEMP 98.1; O2SAT 98
[2017-02-18 08:11] VITALS: PULSE 88
[2017-02-18] MEDS: SODIUM CHLORIDE 0.9% FLUSH 10 ML FLUSH IV FLUSH SCH ×2 (08:25→19:54)
--- NOTE | 2017-02-18 11:41 | HHI.FPPN ---
Subjective Remarks Patient seen and examined this morning. No acute events overnight. Patient reports continued pain and arm swelling. Requesting oxycodone, and explained that the Percocet has oxycodone. Still having some right sided chest pain, around her axilla. No palpitations or shortness of breath. Patient denies any fever/chills, nausea/vomiting, abdominal pain, leg pain. (Enrique Lin MD, R2) Objective Vitals Vital Signs Date Time Temp Pulse Resp B/P (MAP) Pulse Ox O2 Delivery O2 Flow Rate FiO2 02/18/17 08:11 88 02/18/17 08:11 Room Air 02/18/17 08:00 98.1 67 17 122/89 (100) 98 02/18/17 04:00 98.1 68 20 132/92 (105) 97 02/17/17 20:00 98.3 65 18 130/83 (99) 97 02/17/17 19:00 Room Air 02/17/17 16:22 98.3 71 17 121/79 (93) 96 02/17/17 12:28 97.9 74 18 118/73 (88) 96 I/O 02/17/17 02/17/17 02/17/17 02/18/17 02/18/17 02/18/17 07:00 15:00 23:00 07:00 15:00 23:00 Intake Total 1230 ml 1251.5 ml 1572 ml Output Total 10 ml 640 ml Balance 1220 ml 611.5 ml 1572 ml Intake Oral 480 ml 720 ml 480 ml IV Total 750 ml 531.5 ml 1092 ml Output Urine Total 600 ml Drainage Total 10 ml 40 ml # Voids 2 5 # Bowel Movements 0 (Enrique Lin MD, R2) Result Diagram: 02/17/17 0707 02/17/17 0707 Objective Remarks GEN: normally nourished, in NAD. LUNGS: clear A-P, respiratory effort is normal. CARDIOVASCULAR: RR without murmur or gallop. No significant edema. GI/ABD: soft without masses, without organomegaly. NEURO: No focal deficits. SKIN: Exam of RUE is bandaged C/D/I with a drain with serosanguineous fluid. Extensive erythema and swelling of RUE. PSYCH/MENTAL STATUS: Alert and oriented x 3. (Enrique Lin MD, R2) A/P Assessment and Plan 36-year-old female with history of epilepsy presents with painful cellulitis. We'll admit for IV antibiotics and general surgery consult for possible intervention. Discharge Planning per clearance from ortho and antibiotic recs from ID (Enrique Lin MD, R2) Attending Attestation Patient seen and examined. Case reviewed and discussed Agree with plan of care as discussed with me and documented in the resident note (Sasha Capps MD) Problem List: (1) Cellulitis ICD Codes: L03.90 - Cellulitis, unspecified Status: Acute Plan: Patient presents with cellulitis starting, the patient 3 weeks ago. Worsening pain, swelling, and redness. Unsure of initial injury, possible bite or wound. History of MRSA. Physical exam consistent with painful cellulitis; unclear demarcation; indurated. Extends from right inner arm up to axilla. US: Probably phlegmonous changes in upper inner arm CT RUE: Large organized intramuscular fluid collection within long head of triceps muscle; inflammation characteristic of cellulitis Chest MRI: no definite abnormality. Blood cultures negative x 4 days -Ordered Echo to rule out endocarditis -Continue Vancomycin IV q12H; consult pharmacy for dosing adjustment (02/14- ) -Consult Orthopedic Surgery, appreciate recs * Patient postop day 2 for I&D with drain * Wound culture group A beta strep positive -ID consult., Appreciate recommendations * Patient refused to see ID 2 * Will discuss for antibiotic recommendations -IVF -Percocet, morphine PRN pain (2) UTI (urinary tract infection) ICD Codes: N39.0 - Urinary tract infection, site not specified Status: Resolved Plan: Complaints of dysuria. UA significant for large LE, 10 RBC, 33 WBC, few bacteria. Initial urine cx-likely contaminants -Rocephin 2g daily (02/13 - 02/18) -Culture shows contaminants -IVF (3) Epilepsy ICD Codes: G40.909 - Epilepsy, unspecified, not intractable, without status epilepticus Status: Chronic Plan: Patient states he has a history of epilepsy. Currently not on any medications. Unsure of last seizure. Doesn't see neurologist. -Continue to monitor -Seizure precautions -Ativan PRN seizure (4) FEN Status: Acute Plan: Fluids: NS @ 100mls/hr Electrolytes: monitor/replace PRN Nutrition: regular diet DVT ppx: SCDs (Enrique Lin MD, R2) Problem Qualifiers (1) Cellulitis: Qualified Codes: L03.113 - Cellulitis of right upper limb (2) UTI (urinary tract infection): Qualified Codes: N30.01 - Acute cystitis with hematuria (3) Epilepsy: Qualified Codes: G40.919 - Epilepsy, unspecified, intractable, without status epilepticus Enrique Lin MD, R2 Feb 18, 2017 11:41 Sasha Capps MD Feb 18, 2017 15:43
[2017-02-18 12:00] VITALS: BP 121/63; PULSE 71; RESP 17; TEMP 98.3; O2SAT 98
[2017-02-18] MEDS: MORPHINE SULFATE 4 MG/ML INJ IV PUSH PRN ×3 (15:34→23:12)
--- NOTE | 2017-02-18 15:40 | PD.ORT.PN ---
Subjective Post Op Day #: 3 Subjective Remarks Patient is resting in bed in NAD. Patient reports improvement in pain and swelling to the right upper arm. Objective Vitals Vital Signs Date Time Temp Pulse Resp B/P (MAP) Pulse Ox O2 Delivery O2 Flow Rate FiO2 02/18/17 15:07 02/18/17 12:00 98.3 71 17 121/63 (82) 98 02/18/17 08:11 88 02/18/17 08:11 Room Air 02/18/17 08:00 98.1 67 17 122/89 (100) 98 02/18/17 04:00 98.1 68 20 132/92 (105) 97 02/17/17 20:00 98.3 65 18 130/83 (99) 97 02/17/17 19:00 Room Air 02/17/17 16:22 98.3 71 17 121/79 (93) 96 I/O 02/17/17 02/17/17 02/17/17 02/18/17 02/18/17 02/18/17 07:00 15:00 23:00 07:00 15:00 23:00 Intake Total 1230 ml 1251.5 ml 1572 ml 0 ml Output Total 10 ml 640 ml Balance 1220 ml 611.5 ml 1572 ml 0 ml Intake Oral 480 ml 720 ml 480 ml IV Total 750 ml 531.5 ml 1092 ml 0 ml Output Urine Total 600 ml Drainage Total 10 ml 40 ml # Voids 2 5 # Bowel Movements 0 Result Diagram: 02/17/17 0707 02/17/17 0707 Procedures Right upper arm I & D of deep abscess Objective Remarks Dressing C/D/I. Dressing changed with no drainage. Incision well approximated with sutures intact. No erythema. Decreased edema to the RUE. Drain pulled. EPL/APB/KELLIE intact. 2+ radial pulse. Compartments soft. + sensation intact to light touch. Final Intraoperative cx shows + for Group A Beta Strep Assessment & Plan Ortho Post Op Day #: 3 Problem List: Assessment and Plan POD #3: Right upper arm I & D of deep abscess 1. Early ROM or RUE. WBAT RUE. 2. Drain pulled and dressing changed. Daily dressing changes moving forward. 3. Ice and elevation to the RUE 4. ID to manage ABX. ID reconsulted today as initial attempt for consultation failed and they have not been back. Patient needs final CX results addressed and arrangements made for discharge. 5. Final intraoperative cx show + for Group A Beta Strep. 6. Patient will f/u with Dr. Mitchell or DAMIÁN Weller in 1-2 weeks after discharge. Rafy Colunga Feb 18, 2017 15:40
[2017-02-18 16:00] VITALS: BP 117/78; PULSE 70; RESP 17; TEMP 97.9; O2SAT 97
[2017-02-18] MEDS: DOCUSATE SODIUM 50 MG/SENNA 8.6 MG TAB PO SCH (19:54)
[2017-02-18 20:00] VITALS: BP 110/75; PULSE 76; RESP 16; TEMP 98.1; O2SAT 96
[2017-02-18] MEDS: ZOLPIDEM TARTRATE 5 MG TAB PO PRN (23:11)
[2017-02-19] VITALS: BP 119/83; PULSE 71; RESP 15; TEMP 98.2; O2SAT 95
[2017-02-19 04:00] VITALS: BP 139/89; PULSE 66; RESP 19; TEMP 98.1; O2SAT 97
[2017-02-19] MEDS: oxyCODONE/ACETAMINOPHEN 10 MG/325 MG TAB PO PRN ×5 (04:32→22:39)
[2017-02-19] MEDS: MORPHINE SULFATE 4 MG/ML INJ IV PUSH PRN ×5 (05:47→23:49)
[2017-02-19] MEDS: VANCOMYCIN INJ 1,250 MG in SODIUM CHLOR 0.9% 250 ML INJ 250 ML IV SCH ×2 (06:09→17:48)
[2017-02-19 08:00] VITALS: BP 136/91; PULSE 58; RESP 16; TEMP 98.3; O2SAT 99
--- NOTE | 2017-02-19 08:21 | PD.ORT.PN ---
Subjective Subjective Remarks No complaints. Lying in bed. Objective Vitals Vital Signs Date Time Temp Pulse Resp B/P (MAP) Pulse Ox O2 Delivery O2 Flow Rate FiO2 02/19/17 04:00 98.1 66 19 139/89 (106) 97 02/19/17 00:00 98.2 71 15 119/83 (95) 95 02/18/17 20:00 98.1 76 16 110/75 (87) 96 02/18/17 19:00 Room Air 02/18/17 16:00 97.9 70 17 117/78 (91) 97 02/18/17 15:07 02/18/17 12:00 98.3 71 17 121/63 (82) 98 I/O 02/18/17 02/18/17 02/18/17 02/19/17 02/19/17 02/19/17 06:59 14:59 22:59 06:59 14:59 22:59 Intake Total 1572 ml 262.5 ml 480 ml Output Total 600 ml Balance 1572 ml 262.5 ml -120 ml Intake Oral 480 ml 480 ml IV Total 1092 ml 262.5 ml Output Urine Total 600 ml # Voids 5 4 # Bowel Movements 1 Result Diagram: 02/17/17 0707 02/17/17 0707 Procedures Right upper arm I & D of deep abscess Objective Remarks Dressing C/D/I. Dressing changed with no drainage. Mild edema. 2+ radial pulse. Compartments soft. + sensation intact to light touch. Assessment & Plan Ortho Post Op Day #: 4 Problem List: Assessment and Plan POD #4: Right upper arm I & D of deep abscess 1. Early ROM or RUE. WBAT RUE. 2. Daily dressing changes. 3. Ice and elevation to the RUE 4. ID to manage ABX. ID reconsulted Fri. Patient needs final CX results addressed and arrangements made for discharge. 5. Final intraoperative cx show + for Group A Beta Strep. 6. Patient will f/u with Dr. Mitchell or DAMIÁN Weller in 1-2 weeks after discharge. Derrick Rodriguez MD Feb 19, 2017 08:21
[2017-02-19] MEDS: SODIUM CHLORIDE 0.9% FLUSH 10 ML FLUSH IV FLUSH SCH ×2 (08:43→19:55)
[2017-02-19] MEDS ORDERED: MORPHINE SULFATE 4 MG/ML INJ IV PUSH ONE (09:15)
--- NOTE | 2017-02-19 10:59 | HHI.FPPN ---
Subjective Remarks Patient seen and examined this morning. No acute events overnight. Patient states she is in a lot of pain this morning. Per the floor protocol, she was unable to get her IV pain medication as soon as she wanted it. Otherwise, she states she is doing well. No fever/chills, nausea/vomiting, abdominal pain, leg pain. Patient refusing IV fluids overnight. States the swelling has gone down. Her drain was removed yesterday. (Enrique Lin MD, R2) Objective Vitals Vital Signs Date Time Temp Pulse Resp B/P (MAP) Pulse Ox O2 Delivery O2 Flow Rate FiO2 02/19/17 08:50 Room Air 02/19/17 08:00 98.3 58 16 136/91 (106) 99 02/19/17 04:00 98.1 66 19 139/89 (106) 97 02/19/17 00:00 98.2 71 15 119/83 (95) 95 02/18/17 20:00 98.1 76 16 110/75 (87) 96 02/18/17 19:00 Room Air 02/18/17 16:00 97.9 70 17 117/78 (91) 97 02/18/17 15:07 02/18/17 12:00 98.3 71 17 121/63 (82) 98 I/O 02/18/17 02/18/17 02/18/17 02/19/17 02/19/17 02/19/17 07:00 15:00 23:00 07:00 15:00 23:00 Intake Total 1572 ml 262.5 ml 480 ml Output Total 600 ml Balance 1572 ml 262.5 ml -120 ml Intake Oral 480 ml 480 ml IV Total 1092 ml 262.5 ml Output Urine Total 600 ml # Voids 5 4 # Bowel Movements 1 (Enrique Lin MD, R2) Result Diagram: 02/17/17 0707 02/17/17 0707 Imaging Last Impressions Upper Extremity MRI 02/15/17 0000 Signed Impressions: Service Date/Time: Wednesday, February 15, 2017 19:53 - CONCLUSION: 1. There is an abscess in the proximal medial arm subcutaneous tissues measuring up to 5.4 cm. 2. There is severe surrounding subcutaneous edema which extends into the right axilla and surrounds the neurovascular structures. 3. There is muscular edema within the triceps. Marcio Bettencourt MD Chest MRI 02/15/17 0000 Signed Impressions: Service Date/Time: Wednesday, February 15, 2017 19:53 - CONCLUSION: 1. Examination is severely degraded by motion artifact. I cannot confidently exclude a sternal abnormality but no definite abnormality is seen. Consider chest CT if clinical suspicion persists for an abnormality. 2. Small bilateral pleural effusions with associated compressive atelectasis. Marcio Bettencourt MD Abdomen X-Ray 02/15/17 0000 Signed Impressions: Service Date/Time: Wednesday, February 15, 2017 19:23 - CONCLUSION: 1. No metallic foreign body is present to preclude MRI. 2. Mild consolidation in the left lung base. Marcio Bettencourt MD Upper Extremity CT 02/14/17 0000 Signed Impressions: Service Date/Time: Tuesday, February 14, 2017 20:17 - CONCLUSION: 1. Large organized intramuscular fluid collection within the long head of the triceps muscle just low the shoulder characteristic of an abscess. 2. Cutaneous and subcutaneous inflammation characteristic of cellulitis. 3. Intact shoulder joint. No evidence of acute bony abnormality or joint effusion 4. 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 Farhat Rodriguez MD Chest X-Ray 02/13/17 1614 Signed Impressions: Service Date/Time: Monday, February 13, 2017 16:48 - CONCLUSION: No acute cardiopulmonary disease. Ga Alonso MD Soft Tissue Ultrasound 02/13/17 0000 Signed Impressions: Service Date/Time: Monday, February 13, 2017 22:26 - CONCLUSION: 1. Probable phlegmonous changes in the upper inner arm without discrete fluid collection to suggest abscess. Frank Brito MD Objective Remarks GEN: normally nourished, somewhat distressed due to pain LUNGS: CTAB CARDIOVASCULAR: RR without murmur or gallop. GI/ABD: soft without masses, without organomegaly. NEURO: No focal deficits. SKIN: Exam of RUE is bandaged C/D/I. Improved swelling of RUE. Pulses and sensation intact. PSYCH/MENTAL STATUS: Alert and oriented x 3. (Enrique Lin MD, R2) A/P Assessment and Plan 36-year-old female with history of epilepsy presents with painful cellulitis. We'll admit for IV antibiotics and general surgery consult for possible intervention. Discharge Planning per clearance from ortho and antibiotic recs from ID (Enrique Lin MD, R2) Attending Attestation Patient seen and examined. Case reviewed and discussed Agree with plan of care as discussed with me and documented in the resident note. (Sasha Capps MD) Problem List: (1) Cellulitis ICD Codes: L03.90 - Cellulitis, unspecified Status: Acute Plan: Patient presents with cellulitis starting, the patient 3 weeks ago. Worsening pain, swelling, and redness. Unsure of initial injury, possible bite or wound. History of MRSA. Physical exam consistent with painful cellulitis; unclear demarcation; indurated. Extends from right inner arm up to axilla. US: Probably phlegmonous changes in upper inner arm CT RUE: Large organized intramuscular fluid collection within long head of triceps muscle; inflammation characteristic of cellulitis Chest MRI: no definite abnormality. Blood cultures negative x 4 days -Continue Vancomycin IV q12H; consult pharmacy for dosing adjustment (02/14- ) -Consult Orthopedic Surgery, appreciate recs * Patient POD#4 for I&D with drain; Drain removed 02/18 * Daily dressing changes; Ice and elevation * Wound culture group A beta strep positive -ID consult., Appreciate recommendations * Re-consulted, will be seen again today * Await antibiotic recommendations -Echo pending -IVF -Percocet, morphine PRN pain (2) Epilepsy ICD Codes: G40.909 - Epilepsy, unspecified, not intractable, without status epilepticus Status: Chronic Plan: Patient states he has a history of epilepsy. Currently not on any medications. Unsure of last seizure. Doesn't see neurologist. -Continue to monitor -Seizure precautions -Ativan PRN seizure (3) FEN Status: Acute Plan: Fluids: Tolerating PO, refused IV fluids Electrolytes: monitor/replace PRN Nutrition: regular diet DVT ppx: SCDs (Enrique Lin MD, R2) Problem Qualifiers (1) Cellulitis: Qualified Codes: L03.113 - Cellulitis of right upper limb (2) Epilepsy: Qualified Codes: G40.919 - Epilepsy, unspecified, intractable, without status epilepticus Enrique Lin MD, R2 Feb 19, 2017 10:59 Sasha Capps MD Feb 21, 2017 08:54
[2017-02-19 12:00] VITALS: BP 121/74; PULSE 52; RESP 16; TEMP 98; O2SAT 98
[2017-02-19 12:44] LABS: AUTOMATED NEUTROPHIL # 3.9 TH/MM3 (1.8-7.7); BASOPHIL % 0.6 % (0.0-2.0); EOSINOPHIL # 0.2 TH/MM3 (0-0.4); EOSINOPHIL % 2.6 % (0.0-4.0); HEMO FLAGS DIFF FINAL; LYMPH % 32.5 % (9.0-44.0); LYMPHOCYTE # 2.4 TH/MM3 (1.0-4.8); MEAN CORPUSCULAR HEMOGLOBIN 24.6 PG (27.0-34.0); MEAN CORPUSCULAR HGB CONC 31.9 % (32.0-36.0); MONO % 10.3 % (0.0-8.0); PLATELET COUNT 397 TH/MM3 (150-450); RED BLOOD COUNT 3.76 MIL/MM3 (4.00-5.30); RED CELL DISTRIBUTION WIDTH 15.3 % (11.6-17.2); WHITE BLOOD COUNT 7.3 TH/MM3 (4.0-11.0)
[2017-02-19 16:00] VITALS: BP 109/59; PULSE 64; RESP 18; TEMP 98; O2SAT 97
--- NOTE | 2017-02-19 17:42 | ECHRPT ---
Indication: endocarditis CONCLUSIONS The left ventricular systolic function is hyperdynamic with an estimated ejection fraction in the ra nge of 65- 70%. Wall thickness is normal. Normal left ventricular size. No regional wall motion abnormalities are present. The left atrial size is upper limits of normal. Mild mitral valve regurgitation. There is mild tricuspid valve regurgitation. The pulmonary valve is not well visualized. Possible vegetation @ 1x1 cm on rticuspid valve leaflet BP: / HR: Rhythm: MEASUREMENTS (Male / Female) Normal Values Technical Quality:Good 2D ECHO LV Diastolic Diameter PLAX 4.6 cm 4.2 - 5.9 / 3.9 - 5.3 cm LV Systolic Diameter PLAX 3.1 cm IVS Diastolic Thickness 0.9 cm 0.6 - 1.0 / 0.6 - 0.9 cm LVPW Diastolic Thickness 1.1 cm 0.6 - 1.0 / 0.6 - 0.9 cm LV Relative Wall Thickness 0.4 RV Internal Dim ED PLAX 2.9 cm M-MODE Aortic Root Diameter MM 2.5 cm LA Systolic Diameter MM 3.8 cm LA Ao Ratio MM 1.5 AV Cusp Separation MM 1.7 cm DOPPLER MV Area PHT 3.1 cm TR Peak Velocity 297.0 cm/s TR Peak Gradient 35.3 mmHg FINDINGS LEFT VENTRICLE The left ventricular systolic function is hyperdynamic with an estimated ejection fraction in the ra nge of 65- 70%. Wall thickness is normal. Normal left ventricular size. No regional wall motion abnormalities are present. RIGHT VENTRICLE Normal right ventricular size and systolic function. LEFT ATRIUM The left atrial size is upper limits of normal. RIGHT ATRIUM The right atrial size is normal. ATRIAL SEPTUM Normal atrial septal thickness without atrial level shunting by limited color doppler interrogation. AORTA The aortic root and proximal ascending aorta are normal in size on limited imaging. MITRAL VALVE Structurally normal mitral valve. Mild mitral valve regurgitation. AORTIC VALVE Trileaflet aortic valve. No aortic valve stenosis or regurgitation. TRICUSPID VALVE Structurally normal tricuspid valve. There is mild tricuspid valve regurgitation. PULMONARY VALVE The pulmonary valve is not well visualized. VESSELS The inferior vena cava is normal in size. PERICARDIUM No pericardial effusion. Omid Hernandez MD, FACC, FSCAI (Electronically Signed) Final Date:19 February 2017 17:41
--- NOTE | 2017-02-19 19:20 | PD.ID.CON ---
History of Present Illness Service ID Consult Requested By Dr. Capps Primary Care Physician No Primary Care Physician Diagnoses: History of Present Illness Patient is a 36-year-old female with history of epilepsy presents with right arm pain and rash. Patient states that she's been having a rash for the last 3 weeks. She states a month ago, she noticed a "bump" on her biceps. She had a bruise and a wound, and then bumped her arm a week later started swell up. Since then, she said is no swelling more and has been extremely more painful. She went to [facility] last week and was sent home with clindamycin. She then returned 4 days ago and was given a stronger dose of clindamycin. She then returned yesterday, but left AMA. She says the pain initially started on her arm, but has now progressed to armpit. She says she also has pain in her upper neck and right chest. She says the pain is constant, it is a throbbing pain. States it is burning. No numbness or tingling. Presented as a 10/10. Having chills and nausea. Feels lightheaded due to the pain. She took Advil at home, which helped minimally. 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 Denies any other wounds or rashes on her skin. 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 In hospital at [facility]. Right arm wound Past Surgical History Right arm and shoulder area I&D of abscess. Tonsillectomy Adenoidectomy Reported Medications Reported Meds & Active Scripts Active Percocet (Oxycodone-Acetaminophen) 5-325 mg Tab 1-2 Tab PO Q4H PRN Active Ordered Medications Current Medications Medications (Trade) Dose Ordered Sig/Fatmata Route Start Time Stop Time Status Last Admin (NS Flush) 2 ml BID IV FLUSH 02/13/17 21:00 02/19/17 08:43 (NS Flush) 2 ml UNSCH PRN IV FLUSH 02/13/17 19:15 Pharmacy Profile Note 0 ml @ 0 mls/hr UNSCH OTHER 02/13/17 19:15 (Tylenol) 650 mg Q6H PRN PO 02/13/17 19:15 (Percocet 5-325 Mg) 1 tab Q6H PRN PO 02/13/17 19:15 02/17/17 09:17 (Narcan Inj) 0.4 mg UNSCH PRN IV 02/13/17 19:15 (Benadryl) 25 mg Q6H PRN PO 02/13/17 19:15 (Letty-Colace) 1 tab HS PO 02/13/17 21:00 (Ativan Inj) 2 mg UNSCH PRN IV 02/13/17 20:15 (Ambien) 5 mg HS PRN PO 02/15/17 22:30 02/18/17 23:11 Vancomycin HCl 1250 mg/Sodium Chloride 262.5 ml @ 250 mls/hr Q12H IV 02/16/17 18:00 02/19/17 17:48 (Zofran Inj) 4 mg Q4H PRN IVP 02/16/17 12:00 02/19/17 13:22 (Percocet 10-325 Mg) 1 tab Q4H PRN PO 02/17/17 12:00 02/19/17 17:48 (Morphine Inj) 4 mg Q4HR PRN IV PUSH 02/18/17 12:00 02/19/17 15:24 Family History Parents- heart disease per records. Patient reports to me her parents have . Social History Smoke 2 PPD for 20 years Alcohol: Socially Illicit drug use: Quit heroin 3 weeks ago; marijuana daily Patient reports being homeless. Physical Exam Vital Signs Vital Signs Date Time Temp Pulse Resp B/P (MAP) Pulse Ox O2 Delivery O2 Flow Rate FiO2 02/19/17 16:00 98.0 64 18 109/59 (76) 97 02/19/17 12:00 98.0 52 16 121/74 (90) 98 02/19/17 08:50 Room Air 02/19/17 08:00 98.3 58 16 136/91 (106) 99 02/19/17 04:00 98.1 66 19 139/89 (106) 97 02/19/17 00:00 98.2 71 15 119/83 (95) 95 02/18/17 20:00 98.1 76 16 110/75 (87) 96 Physical Exam GENERAL: This is a well-nourished, well-developed patient, in no apparent distress. SKIN: No rashes, ecchymoses or lesions. Cool and dry. HEAD: Atraumatic. Normocephalic. No temporal or scalp tenderness. EYES: Pupils equal round and reactive. Extraocular motions intact. No scleral icterus. No injection or drainage. ENT: Nose without bleeding, purulent drainage or septal hematoma. Throat without erythema, tonsillar hypertrophy or exudate. Uvula midline. Airway patent. NECK: Trachea midline. No JVD or lymphadenopathy. Supple, nontender, no meningeal signs. CARDIOVASCULAR: Regular rate and rhythm without murmurs, gallops, or rubs. RESPIRATORY: Clear to auscultation. Breath sounds equal bilaterally. No wheezes , rales, or rhonchi. GASTROINTESTINAL: Abdomen soft, non-tender, nondistended. MUSCULOSKELETAL: Right shoulder in surgical dressing. NEUROLOGICAL: Awake and alert. Grossly non focal Psych: cooperative for exam. Not reliable historian. Very angry and negative. Would not want to discuss or believe that infection is IVDA related. IV line sites with no e.o infection. Laboratory Laboratory Tests Test 02/19/17 12:27 White Blood Count 7.3 Red Blood Count 3.76 Hemoglobin 9.2 Hematocrit 29.0 Mean Corpuscular Volume 77.0 Mean Corpuscular Hemoglobin 24.6 Mean Corpuscular Hemoglobin Concent 31.9 Red Cell Distribution Width 15.3 Platelet Count 397 Mean Platelet Volume 6.7 Neutrophils (%) (Auto) 54.0 Lymphocytes (%) (Auto) 32.5 Monocytes (%) (Auto) 10.3 Eosinophils (%) (Auto) 2.6 Basophils (%) (Auto) 0.6 Neutrophils # (Auto) 3.9 Lymphocytes # (Auto) 2.4 Monocytes # (Auto) 0.8 Eosinophils # (Auto) 0.2 Basophils # (Auto) 0.0 CBC Comment DIFF FINAL Differential Comment Date/Time Source Procedure Growth Status 02/13/17 16:45 Blood Peripheral Aerobic Blood Culture - Final NO GROWTH IN 5 DAYS Complete 02/13/17 16:45 Blood Peripheral Anaerobic Blood Culture - Final NO GROWTH IN 5 DAYS Complete 02/13/17 18:00 Urine Catheterized Urine Urine Culture - Final 10-50,000 CFU/ML MIXED YINKA... Complete 02/16/17 11:40 Abscess Arm Fungal Smear - Final NO FUNGAL ELEMENTS SEEN. Resulted 02/16/17 11:40 Abscess Arm Fungal Culture Pending Resulted Result Diagram: 02/19/17 1227 02/17/17 0707 Imaging Last Impressions Upper Extremity MRI 02/15/17 0000 Signed Impressions: Service Date/Time: Wednesday, February 15, 2017 19:53 - CONCLUSION: 1. There is an abscess in the proximal medial arm subcutaneous tissues measuring up to 5.4 cm. 2. There is severe surrounding subcutaneous edema which extends into the right axilla and surrounds the neurovascular structures. 3. There is muscular edema within the triceps. Marcio Bettencourt MD Chest MRI 02/15/17 0000 Signed Impressions: Service Date/Time: Wednesday, February 15, 2017 19:53 - CONCLUSION: 1. Examination is severely degraded by motion artifact. I cannot confidently exclude a sternal abnormality but no definite abnormality is seen. Consider chest CT if clinical suspicion persists for an abnormality. 2. Small bilateral pleural effusions with associated compressive atelectasis. Marcio Bettencourt MD Abdomen X-Ray 02/15/17 0000 Signed Impressions: Service Date/Time: Wednesday, February 15, 2017 19:23 - CONCLUSION: 1. No metallic foreign body is present to preclude MRI. 2. Mild consolidation in the left lung base. Marcio Bettencourt MD Upper Extremity CT 02/14/17 0000 Signed Impressions: Service Date/Time: Tuesday, February 14, 2017 20:17 - CONCLUSION: 1. Large organized intramuscular fluid collection within the long head of the triceps muscle just low the shoulder characteristic of an abscess. 2. Cutaneous and subcutaneous inflammation characteristic of cellulitis. 3. Intact shoulder joint. No evidence of acute bony abnormality or joint effusion 4. 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 Farhat Rodriguez MD Chest X-Ray 02/13/17 1614 Signed Impressions: Service Date/Time: Monday, February 13, 2017 16:48 - CONCLUSION: No acute cardiopulmonary disease. Ga Alonso MD Soft Tissue Ultrasound 02/13/17 0000 Signed Impressions: Service Date/Time: Monday, February 13, 2017 22:26 - CONCLUSION: 1. Probable phlegmonous changes in the upper inner arm without discrete fluid collection to suggest abscess. Frank Brito MD Assessment and Plan Assessment and Plan Group A Strep Endocarditis Tricuspid valve. Group A Strep Infective Myositis and abscess s/p I&D. Intravenous drug abuse admits to use 3 wks prior to admission. Anger issues Non compliant. Recs Continue Vanco IV (Changed target trough to 15-20) Will call [facility] in am to request susceptibility for Grp A Strep. Patient is homeless. Unless a safe living arrangement in a setting with no other IVDAs can be arranged not safe to discharge with PICC line on streets. Check CBC with diff, Creatinine, LFTs and CRP once a week. To be ordered and followed by primary team. Will follow prn. Follow cultures Follow clinically. Tash Moore MD Feb 19, 2017 19:20
[2017-02-19] MEDS: DOCUSATE SODIUM 50 MG/SENNA 8.6 MG TAB PO SCH (19:55)
[2017-02-19 20:00] VITALS: BP 112/64; PULSE 60; RESP 20; TEMP 98.3; O2SAT 93
[2017-02-19] MEDS: ZOLPIDEM TARTRATE 5 MG TAB PO PRN (23:49)
[2017-02-20] VITALS: BP 132/74; PULSE 66; RESP 18; TEMP 98.2; O2SAT 98
[2017-02-20 04:00] VITALS: BP 129/67; PULSE 67; RESP 20; TEMP 98.2; O2SAT 98
[2017-02-20] MEDS: oxyCODONE/ACETAMINOPHEN 10 MG/325 MG TAB PO PRN ×2 (04:35→08:08)
[2017-02-20] MEDS: VANCOMYCIN INJ 1,250 MG in SODIUM CHLOR 0.9% 250 ML INJ 250 ML IV SCH ×2 (05:27→18:34)
[2017-02-20] MEDS: MORPHINE SULFATE 4 MG/ML INJ IV PUSH PRN ×4 (05:36→20:19)
[2017-02-20] MEDS ORDERED: PHARMACY ORDERED LAB ONE (05:45)
[2017-02-20 08:00] VITALS: BP 132/76; PULSE 58; RESP 16; TEMP 98; O2SAT 97
[2017-02-20 08:08] LABS: INDIRECT BILIRUBIN 0.2 MG/DL (0.0-0.8); TOTAL BILIRUBIN ADULT 0.3 MG/DL (0.2-1.0)
[2017-02-20] MEDS: SODIUM CHLORIDE 0.9% FLUSH 10 ML FLUSH IV FLUSH SCH ×2 (08:08→20:19)
--- NOTE | 2017-02-20 08:20 | PD.ORT.PN ---
Subjective Subjective Remarks No complaints. Lying in bed. She notes that the swelling is decreasing Objective Vitals Vital Signs Date Time Temp Pulse Resp B/P (MAP) Pulse Ox O2 Delivery O2 Flow Rate FiO2 02/20/17 04:00 98.2 67 20 129/67 (87) 98 02/20/17 00:00 98.2 66 18 132/74 (93) 98 02/19/17 20:00 98.3 60 20 112/64 (80) 93 02/19/17 20:00 Room Air 02/19/17 16:00 98.0 64 18 109/59 (76) 97 02/19/17 12:00 98.0 52 16 121/74 (90) 98 02/19/17 08:50 Room Air I/O 02/19/17 02/19/17 02/19/17 02/20/17 02/20/17 02/20/17 07:00 15:00 23:00 07:00 15:00 23:00 Intake Total 480 ml 982.5 ml 882.5 ml Output Total 600 ml Balance -120 ml 982.5 ml 882.5 ml Intake Oral 480 ml 720 ml 620 ml IV Total 262.5 ml 262.5 ml Output Urine Total 600 ml # Voids 5 4 # Bowel Movements 1 1 Result Diagram: 02/19/17 1227 02/17/17 0707 Procedures Right upper arm I & D of deep abscess Objective Remarks Dressing C/D/I. Dressing changed with no drainage. Mild edema, which is improving 2+ radial pulse. Compartments soft. + sensation intact to light touch. Assessment & Plan Assessment and Plan POD #4: Right upper arm I & D of deep abscess 1. Early ROM or RUE. WBAT RUE. 2. Daily dressing changes. 3. Ice and elevation to the RUE 4. ID to manage ABX. 5. Final intraoperative cx show + for Group A Beta Strep. 6. Patient will f/u with Dr. Mitchell or DAMIÁN Weller in 1-2 weeks after discharge. 7. WBC normal. 8. Stable orthopedically Derrick Rodriguez MD Feb 20, 2017 08:20
[2017-02-20] MEDS: oxyCODONE HCL 20 MG CONTROLLED RELEASE TAB PO SCH ×2 (10:16→22:01)
--- NOTE | 2017-02-20 11:18 | HHI.FPPN ---
Subjective Remarks Patient states that she is in pain this morning and her arm, shoulder, and chest. She feels that her Percocets wear off too quickly. She feels that she has more swelling in her underarm. No fever or chills, no shortness of breath, no abdominal pain, no nausea or vomiting, no constipation or diarrhea. (Kaylin Gregorio MD R1) Objective Vitals Vital Signs Date Time Temp Pulse Resp B/P (MAP) Pulse Ox O2 Delivery O2 Flow Rate FiO2 02/20/17 08:34 Room Air 02/20/17 08:00 98.0 58 16 132/76 (94) 97 02/20/17 04:00 98.2 67 20 129/67 (87) 98 02/20/17 00:00 98.2 66 18 132/74 (93) 98 02/19/17 20:00 98.3 60 20 112/64 (80) 93 02/19/17 20:00 Room Air 02/19/17 16:00 98.0 64 18 109/59 (76) 97 02/19/17 12:00 98.0 52 16 121/74 (90) 98 I/O 02/19/17 02/19/17 02/19/17 02/20/17 02/20/17 02/20/17 07:00 15:00 23:00 07:00 15:00 23:00 Intake Total 480 ml 982.5 ml 882.5 ml Output Total 600 ml Balance -120 ml 982.5 ml 882.5 ml Intake Oral 480 ml 720 ml 620 ml IV Total 262.5 ml 262.5 ml Output Urine Total 600 ml # Voids 5 4 # Bowel Movements 1 1 (Kaylin Gregorio MD R1) Result Diagram: 02/19/17 1227 02/17/17 0707 Objective Remarks GEN: normally nourished, in no acute distress. Sitting at edge of bed eating breakfast LUNGS: CTAB CARDIOVASCULAR: RR without murmur or gallop. Tenderness to palpation at midsternum and right chest wall. GI/ABD: soft without masses, without organomegaly. Nontender NEURO: No focal deficits. SKIN: Exam of RUE is bandaged C/D/I. Improved swelling of RUE. Pulses and sensation intact. PSYCH/MENTAL STATUS: Alert and oriented x 3. (Kaylin Gregorio MD R1) A/P Assessment and Plan 36-year-old female with history of epilepsy presents with painful cellulitis. We'll admit for IV antibiotics and general surgery consult for possible intervention. Discharge Planning per clearance from ortho and antibiotic recs from ID (Kaylin Gregorio MD R1) Attending Attestation Patient seen and examined. Case reviewed and discussed Agree with plan of care as discussed with me and documented in the resident note. (Sasha Capps MD) Problem List: (1) Cellulitis ICD Codes: L03.90 - Cellulitis, unspecified Status: Acute Plan: Patient presents with cellulitis starting, the patient 3 weeks ago. Worsening pain, swelling, and redness. Unsure of initial injury, possible bite or wound. History of MRSA. Physical exam consistent with painful cellulitis; unclear demarcation; indurated. Extends from right inner arm up to axilla. US: Probably phlegmonous changes in upper inner arm CT RUE: Large organized intramuscular fluid collection within long head of triceps muscle; inflammation characteristic of cellulitis Chest MRI: no definite abnormality. Blood cultures negative x 5 days 2-D echocardiogram shows mild mitral and tricuspid valve regurgitation. Possible vegetation of 1 x 1 cm on tricuspid valve leaflet. -Continue Vancomycin IV q12H; consult pharmacy for dosing adjustment (02/14- ) -Consult Orthopedic Surgery, appreciate recs * Patient POD#5 for I&D with drain; Drain removed 02/18 * Daily dressing changes; Ice and elevation * Wound culture group A beta strep positive -ID consult., Appreciate recommendations * Continue vancomycin IV (target trough 15-20) * Patient not safe to discharge with PICC line on the streets * Check CBC with differential, creatinine, LFTs, and CRP once a week * Follow cultures -IVF -Oxycontin BID, morphine PRN pain (2) Epilepsy ICD Codes: G40.909 - Epilepsy, unspecified, not intractable, without status epilepticus Status: Chronic Plan: Patient states he has a history of epilepsy. Currently not on any medications. Unsure of last seizure. Doesn't see neurologist. -Continue to monitor -Seizure precautions -Ativan PRN seizure (3) FEN Status: Acute Plan: Fluids: Tolerating PO, refused IV fluids Electrolytes: monitor/replace PRN Nutrition: regular diet DVT ppx: SCDs (Kaylin Gregorio MD R1) Problem Qualifiers (1) Cellulitis: Qualified Codes: L03.113 - Cellulitis of right upper limb (2) Epilepsy: Qualified Codes: G40.919 - Epilepsy, unspecified, intractable, without status epilepticus Kaylin Gregorio MD R1 Feb 20, 2017 11:18 Sasha Capps MD Feb 21, 2017 08:53
[2017-02-20 12:00] VITALS: BP 123/67; PULSE 66; RESP 16; TEMP 97.8; O2SAT 98
[2017-02-20 16:00] VITALS: BP 117/57; PULSE 58; RESP 16; TEMP 98.1; O2SAT 98
[2017-02-20 20:00] VITALS: BP 134/82; PULSE 67; RESP 18; TEMP 98.2; O2SAT 97
[2017-02-20] MEDS: DOCUSATE SODIUM 50 MG/SENNA 8.6 MG TAB PO SCH (20:19)
[2017-02-20] MEDS: ZOLPIDEM TARTRATE 5 MG TAB PO PRN (22:00)
[2017-02-21] VITALS (7 sets, daily range): BP systolic 113–138; BP diastolic 55–80; PULSE 59–78; RESP 17–19; TEMP 97.9–98.2; O2SAT 95–98
[2017-02-21] MEDS: MORPHINE SULFATE 4 MG/ML INJ IV PUSH PRN ×6 (00:29→20:55)
[2017-02-21] MEDS: VANCOMYCIN INJ 1,250 MG in SODIUM CHLOR 0.9% 250 ML INJ 250 ML IV SCH ×2 (05:01→18:32)
[2017-02-21 06:13] LABS: HEMATOCRIT 29.2 % (35.0-46.0); MEAN CELL VOLUME 77.7 FL (80.0-100.0); MEAN CORPUSCULAR HEMOGLOBIN 24.9 PG (27.0-34.0); PLATELET COUNT 426 TH/MM3 (150-450); RED BLOOD COUNT 3.76 MIL/MM3 (4.00-5.30); RED CELL DISTRIBUTION WIDTH 15.6 % (11.6-17.2); REVIEW FLAG FINAL; WHITE BLOOD COUNT 6.4 TH/MM3 (4.0-11.0)
[2017-02-21 06:52] LABS: POTASSIUM 4.2 MEQ/L (3.5-5.1)
--- NOTE | 2017-02-21 07:40 | HHI.PR ---
Addendum to Inpatient Note Addendum Reason: Additional Documentation Additional Information Called micro to request susceptibilities on Grp A Strep in abscess. Patient has endocarditis with infective myositis. This information will be useful to chose alternatives. Tash Moore MD Feb 21, 2017 07:40
[2017-02-21] MEDS: oxyCODONE HCL 20 MG CONTROLLED RELEASE TAB PO SCH ×2 (10:24→22:53)
[2017-02-21] MEDS: SODIUM CHLORIDE 0.9% FLUSH 10 ML FLUSH IV FLUSH SCH ×2 (10:25→20:19)
--- NOTE | 2017-02-21 15:56 | HHI.FPPN ---
Subjective Remarks Pt seen and examined this morning. No acute events overnight. Pt reports she feels better this morning. States the pain is more controlled. Reports swelling has gone down. Occasional chest pain. No fever/chills, nausea/vomiting, abdominal pain, leg pain. (Enrique Lin MD, R2) Objective Vitals Vital Signs Date Time Temp Pulse Resp B/P (MAP) Pulse Ox O2 Delivery O2 Flow Rate FiO2 02/21/17 08:02 98.0 59 17 113/55 (74) 95 02/21/17 08:00 96 Room Air 02/21/17 08:00 76 02/21/17 04:00 98.0 68 18 130/65 (86) 96 02/21/17 03:45 Room Air 02/21/17 00:00 Room Air 02/21/17 00:00 98.0 72 19 138/70 (92) 96 02/20/17 20:00 98.2 67 18 134/82 (99) 97 02/20/17 20:00 Room Air 02/20/17 16:00 98.1 58 16 117/57 (77) 98 I/O 02/20/17 02/20/17 02/20/17 02/21/17 02/21/17 02/21/17 07:00 15:00 23:00 07:00 15:00 23:00 Intake Total 882.5 ml 480 ml 262.5 ml Balance 882.5 ml 480 ml 262.5 ml Intake Oral 620 ml 480 ml IV Total 262.5 ml 262.5 ml # Voids 4 6 # Bowel Movements 1 (Enrique Lin MD, R2) Result Diagram: 02/21/1751802/21/17 0519 Objective Remarks GEN: normally nourished, in no acute distress. Laying in bed. LUNGS: CTAB CARDIOVASCULAR: RR without murmur or gallop. GI/ABD: soft without masses, without organomegaly. Nontender NEURO: No focal deficits. SKIN: Exam of RUE is bandaged C/D/I. Improved swelling of RUE. Pulses and sensation intact. PSYCH/MENTAL STATUS: Alert and oriented x 3. (Enrique Lin MD, R2) A/P Assessment and Plan 36-year-old female with history of epilepsy presents with painful cellulitis. Discharge Planning per clearance from ortho and antibiotic recs from ID (Enrique Lin MD, R2) Attending Attestation Patient seen and examined. Case reviewed and discussed Agree with plan of care as discussed with me and documented in the resident note. (Sasha Capps MD) Problem List: (1) Infective myositis of right upper arm ICD Codes: M60.021 - Infective myositis, right upper arm Plan: Pt is s/p I&D and s/p drain removal with orthopedic surgery US: Probably phlegmonous changes in upper inner arm CT RUE: Large organized intramuscular fluid collection within long head of triceps muscle; inflammation characteristic of cellulitis Chest MRI: no definite abnormality. 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 Possible vegetation of 1 x 1 cm on tricuspid valve leaflet. -ID consulted-appreciate recs -awaiting sensitivities -Vancomycin as above (3) Epilepsy ICD Codes: G40.909 - Epilepsy, unspecified, not intractable, without status epilepticus Status: Chronic Plan: Patient states he has a history of epilepsy. Currently not on any medications. Unsure of last seizure. Doesn't see neurologist. -Continue to monitor -Seizure precautions -Ativan PRN seizure (4) FEN Status: Acute Plan: Fluids: Tolerating PO Electrolytes: monitor/replace PRN Nutrition: regular diet DVT ppx: Lovenox (Enrique Lin MD, R2) Problem Qualifiers (1) Epilepsy: Qualified Codes: G40.919 - Epilepsy, unspecified, intractable, without status epilepticus Enrique Lin MD, R2 Feb 21, 2017 15:56 Sasha Capps MD Feb 21, 2017 16:47
[2017-02-21] MEDS ORDERED: PHARMACY ORDERED LAB ONE (17:45)
[2017-02-21] MEDS: ENOXAPARIN SODIUM 40 MG/0.4 ML SYRINGE SQ SCH (18:33)
[2017-02-21] MEDS: DOCUSATE SODIUM 50 MG/SENNA 8.6 MG TAB PO SCH (20:21)
[2017-02-21] MEDS: ZOLPIDEM TARTRATE 5 MG TAB PO PRN (22:52)
[2017-02-22] VITALS: BP 129/78; PULSE 66; RESP 17; TEMP 97.7; O2SAT 97
[2017-02-22] MEDS: MORPHINE SULFATE 4 MG/ML INJ IV PUSH PRN ×6 (02:18→21:33)
[2017-02-22] MEDS: VANCOMYCIN INJ 1,250 MG in SODIUM CHLOR 0.9% 250 ML INJ 250 ML IV SCH (06:14)
[2017-02-22 08:00] VITALS: PULSE 86
[2017-02-22 08:02] VITALS: BP_SYST 109; BP_SYST 124; BP_DIAS 55; BP_DIAS 71; PULSE 62; RESP 16; TEMP 98.1; O2SAT 98
[2017-02-22] MEDS: oxyCODONE HCL 20 MG CONTROLLED RELEASE TAB PO SCH ×2 (10:13→20:15)
[2017-02-22] MEDS: SODIUM CHLORIDE 0.9% FLUSH 10 ML FLUSH IV FLUSH SCH ×2 (10:15→20:15)
[2017-02-22 12:02] VITALS: BP 119/56; PULSE 72; RESP 16; TEMP 98.2; O2SAT 98
--- NOTE | 2017-02-22 14:00 | HHI.FPPN ---
Subjective Remarks Patient states that she is doing much better. Her pain is well-controlled with the new regimen. Her swelling has also improved and she is able to move her arm more. She is still having some chest pain in the middle to right side of her chest. No shortness of breath, no fever or chills, no abdominal pain, no nausea or vomiting, no diarrhea or constipation. (Kaylin Gregorio MD R1) Objective Vitals Vital Signs Date Time Temp Pulse Resp B/P (MAP) Pulse Ox O2 Delivery O2 Flow Rate FiO2 02/22/17 08:02 98.1 62 16 109/55 (73) 98 02/22/17 08:00 86 02/22/17 08:00 96 Room Air 02/22/17 00:00 97.7 66 17 129/78 (95) 97 02/21/17 20:00 97.9 78 19 123/80 (94) 98 02/21/17 20:00 Room Air 02/21/17 16:02 98.1 65 17 120/69 (86) 97 I/O 02/21/17 02/21/17 02/21/17 02/22/17 02/22/17 02/22/17 07:00 15:00 23:00 07:00 15:00 23:00 Intake Total 262.5 ml 380 ml 250 ml 720 ml 262.5 ml Balance 262.5 ml 380 ml 250 ml 720 ml 262.5 ml Intake Oral 380 ml 720 ml IV Total 262.5 ml 250 ml 262.5 ml # Voids 4 4 # Bowel Movements 1 1 (Kaylin Gregorio MD R1) Result Diagram: 02/21/1751802/21/17518 Objective Remarks GEN: normally nourished, in no acute distress. Sitting in bed. LUNGS: CTAB CARDIOVASCULAR: RR without murmur or gallop. GI/ABD: soft without masses, without organomegaly. Nontender NEURO: No focal deficits. SKIN: Exam of RUE is bandage along medial aspect of upper arm C/D/I. Improved swelling of RUE. Tender to palpation. Pulses and sensation intact. PSYCH/MENTAL STATUS: Afocal. Procedures I&D on 02-16-17 Medications and IVs Current Medications Medications (Trade) Dose Ordered Sig/Fatmata Route Start Time Stop Time Status Last Admin (NS Flush) 2 ml BID IV FLUSH 02/13/17 21:00 02/22/17 10:15 (NS Flush) 2 ml UNSCH PRN IV FLUSH 02/13/17 19:15 Pharmacy Profile Note 0 ml @ 0 mls/hr UNSCH OTHER 02/13/17 19:15 (Tylenol) 650 mg Q6H PRN PO 02/13/17 19:15 (Narcan Inj) 0.4 mg UNSCH PRN IV 02/13/17 19:15 (Benadryl) 25 mg Q6H PRN PO 02/13/17 19:15 (Letty-Colace) 1 tab HS PO 02/13/17 21:00 (Ativan Inj) 2 mg UNSCH PRN IV 02/13/17 20:15 (Ambien) 5 mg HS PRN PO 02/15/17 22:30 02/21/17 22:52 (Zofran Inj) 4 mg Q4H PRN IVP 02/16/17 12:00 02/19/17 13:22 (Morphine Inj) 3 mg Q4H PRN IV PUSH 02/20/17 08:30 02/22/17 10:11 (OxyCONTIN CR) 20 mg Q12HR PO 02/20/17 09:15 02/22/17 10:13 (Lovenox Inj) 40 mg Q24H SQ 02/21/17 17:00 02/21/17 18:33 Miscellaneous Information SPECIFIC LAB TO BE DRAWN:VANCO TROUGH DATE TO BE DR... ONCE ONCE .XX 02/24/17 05:45 02/24/17 05:46 Vancomycin HCl 1500 mg/Sodium Chloride 515 ml @ 250 mls/hr Q12H IV 02/22/17 18:00 (Kaylin Gregorio MD R1) A/P Assessment and Plan 36-year-old female with history of epilepsy presents with painful cellulitis. Discharge Planning per clearance from ortho and antibiotic recs from ID (Kaylin Gregorio MD R1) Attending Attestation Patient seen and examined. Case reviewed and discussed Agree with plan of care as discussed with me and documented in the resident note. (Sasha Capps MD) Problem List: (1) Infective myositis of right upper arm ICD Codes: M60.021 - Infective myositis, right upper arm Status: Acute Plan: Pt is s/p I&D and s/p drain removal with orthopedic surgery US: Probably phlegmonous changes in upper inner arm CT RUE: Large organized intramuscular fluid collection within long head of triceps muscle; inflammation characteristic of cellulitis Chest MRI: no definite abnormality. 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 Possible vegetation of 1 x 1 cm on tricuspid valve leaflet. -ID consulted-appreciate recs -awaiting sensitivities -Vancomycin as above (3) Epilepsy ICD Codes: G40.909 - Epilepsy, unspecified, not intractable, without status epilepticus Status: Chronic Plan: Patient states he has a history of epilepsy. Currently not on any medications. Unsure of last seizure. Doesn't see neurologist. -Continue to monitor -Seizure precautions -Ativan PRN seizure (4) FEN Status: Acute Plan: Fluids: Tolerating PO Electrolytes: monitor/replace PRN Nutrition: regular diet DVT ppx: Lovenox (Kaylin Gregorio MD R1) Problem Qualifiers (1) Epilepsy: Qualified Codes: G40.919 - Epilepsy, unspecified, intractable, without status epilepticus Kaylin Gregorio MD R1 Feb 22, 2017 14:00 Sasha Capps MD Feb 25, 2017 09:41
[2017-02-22 16:02] VITALS: BP 106/63; PULSE 77; RESP 16; TEMP 98.2; O2SAT 98
[2017-02-22] MEDS: VANCOMYCIN INJ 1,500 MG in SODIUM CHLORID 0.9% 500 ML INJ 500 ML IV SCH (18:11)
[2017-02-22] MEDS: ENOXAPARIN SODIUM 40 MG/0.4 ML SYRINGE SQ SCH (18:11)
[2017-02-22 20:00] VITALS: BP 102/51; PULSE 71; RESP 18; TEMP 98.4; O2SAT 95
[2017-02-22] MEDS: DOCUSATE SODIUM 50 MG/SENNA 8.6 MG TAB PO SCH (20:15)
[2017-02-22] MEDS: ZOLPIDEM TARTRATE 5 MG TAB PO PRN (21:33)
[2017-02-23] VITALS: BP 114/55; PULSE 75; RESP 18; TEMP 98.6; O2SAT 97
[2017-02-23] MEDS: MORPHINE SULFATE 4 MG/ML INJ IV PUSH PRN ×6 (01:14→21:38)
[2017-02-23 04:00] VITALS: BP 113/56; PULSE 65; RESP 18; TEMP 98.6; O2SAT 97
[2017-02-23] MEDS: VANCOMYCIN INJ 1,500 MG in SODIUM CHLORID 0.9% 500 ML INJ 500 ML IV SCH ×2 (04:55→17:36)
[2017-02-23 08:00] VITALS: BP 120/60; PULSE 75; RESP 16; O2SAT 10
[2017-02-23] MEDS: SODIUM CHLORIDE 0.9% FLUSH 10 ML FLUSH IV FLUSH SCH ×2 (09:00→20:26)
[2017-02-23] MEDS: oxyCODONE HCL 20 MG CONTROLLED RELEASE TAB PO SCH ×2 (09:28→20:27)
--- NOTE | 2017-02-23 10:48 | HHI.FPPN ---
Subjective Remarks Patient states that she is doing well today. She worked with PT yesterday and feels sore from that. Otherwise, her pain is well-controlled. No fevers or chills, no chest pain, no shortness of breath, no abdominal pain, no nausea/ vomiting, no constipation or diarrhea. (Kaylin Gregorio MD R1) Objective Vitals Vital Signs Date Time Temp Pulse Resp B/P (MAP) Pulse Ox O2 Delivery O2 Flow Rate FiO2 02/23/17 08:00 75 16 120/60 (80) 10 02/23/17 04:00 98.6 65 18 113/56 (75) 97 02/23/17 00:00 98.6 75 18 114/55 (74) 97 02/22/17 20:00 98.4 71 18 102/51 (68) 95 02/22/17 19:00 Room Air 02/22/17 16:02 98.2 77 16 106/63 (77) 98 02/22/17 12:02 98.2 72 16 119/56 (77) 98 02/22/17 12:02 98.2 72 16 119/56 (77) 98 I/O 02/22/17 02/22/17 02/22/17 02/23/17 02/23/17 02/23/17 07:00 15:00 23:00 07:00 15:00 23:00 Intake Total 720 ml 682.5 ml 400 ml 400 ml Output Total 400 ml 300 ml Balance 720 ml 682.5 ml 0 ml 100 ml Intake Oral 720 ml 420 ml 400 ml 400 ml IV Total 262.5 ml Output Urine Total 400 ml 300 ml # Voids 4 4 # Bowel Movements 1 2 0 0 (Kaylin Gregorio MD R1) Result Diagram: 02/21/1751802/21/17518 Objective Remarks GEN: normally nourished, in no acute distress. Sitting in bed. LUNGS: CTAB CARDIOVASCULAR: RR without murmur or gallop. GI/ABD: soft without masses, without organomegaly. Nontender NEURO: No focal deficits. SKIN: Exam of RUE is bandage along medial aspect of upper arm C/D/I. Improved swelling of RUE. Pulses and sensation intact. PSYCH/MENTAL STATUS: Afocal. Procedures I&D on 02-16-17 (Kaylin Gregorio MD R1) A/P Assessment and Plan 36-year-old female with history of epilepsy presents with painful cellulitis. Discharge Planning per clearance from ortho and antibiotic recs from ID (Kaylin Gregorio MD R1) Attending Attestation Patient seen and examined. Case reviewed and discussed Agree with plan of care as discussed with me and documented in the resident note. (Sasha Capps MD) Problem List: (1) Infective myositis of right upper arm ICD Codes: M60.021 - Infective myositis, right upper arm Status: Acute Plan: Pt is s/p I&D and s/p drain removal with orthopedic surgery US: Probably phlegmonous changes in upper inner arm CT RUE: Large organized intramuscular fluid collection within long head of triceps muscle; inflammation characteristic of cellulitis Chest MRI: no definite abnormality. 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 Possible vegetation of 1 x 1 cm on tricuspid valve leaflet. -ID consulted-appreciate recs -awaiting sensitivities -Vancomycin as above (3) Epilepsy ICD Codes: G40.909 - Epilepsy, unspecified, not intractable, without status epilepticus Status: Chronic Plan: Patient states he has a history of epilepsy. Currently not on any medications. Unsure of last seizure. Doesn't see neurologist. -Continue to monitor -Seizure precautions -Ativan PRN seizure (4) FEN Status: Acute Plan: Fluids: Tolerating PO Electrolytes: monitor/replace PRN Nutrition: regular diet DVT ppx: Lovenox (Kaylin Gregorio MD R1) Problem Qualifiers (1) Epilepsy: Qualified Codes: G40.919 - Epilepsy, unspecified, intractable, without status epilepticus Kaylin Gregorio MD R1 Feb 23, 2017 10:48 Sasha Capps MD Feb 25, 2017 09:41
[2017-02-23 12:00] VITALS: BP 121/70; PULSE 69; RESP 16; TEMP 97.5; O2SAT 97
[2017-02-23 16:00] VITALS: BP 146/56; PULSE 72; RESP 16; TEMP 98.4; O2SAT 96
[2017-02-23] MEDS: ENOXAPARIN SODIUM 40 MG/0.4 ML SYRINGE SQ SCH (17:36)
[2017-02-23] MEDS: DOCUSATE SODIUM 50 MG/SENNA 8.6 MG TAB PO SCH (20:27)
[2017-02-23] MEDS: ZOLPIDEM TARTRATE 5 MG TAB PO PRN (21:38)
[2017-02-24] MEDS: MORPHINE SULFATE 4 MG/ML INJ IV PUSH PRN ×5 (03:37→20:41)
[2017-02-24 04:00] VITALS: BP 111/57; PULSE 65; RESP 16; TEMP 98.5; O2SAT 97
[2017-02-24] MEDS ORDERED: PHARMACY ORDERED LAB ONE (05:45)
[2017-02-24] MEDS: VANCOMYCIN INJ 1,500 MG in SODIUM CHLORID 0.9% 500 ML INJ 500 ML IV SCH ×2 (06:00→18:06)
[2017-02-24 08:00] VITALS: BP 109/54; PULSE 69; RESP 18; TEMP 98.3; O2SAT 99
[2017-02-24] MEDS: SODIUM CHLORIDE 0.9% FLUSH 10 ML FLUSH IV FLUSH SCH ×2 (08:22→20:41)
--- NOTE | 2017-02-24 09:55 | HHI.FPPN ---
Subjective Remarks Patient seen and examined this morning. No acute events overnight. Denies any complaints/concerns this morning. States she is bored. Improved arm swelling/ pain. Some pain overnight, if she rolls on it. Denies any fever/chills, n/v, chest pain, SOB, abdominal pain, leg pain. (Enrique Lin MD, R2) Objective Vitals Vital Signs Date Time Temp Pulse Resp B/P (MAP) Pulse Ox O2 Delivery O2 Flow Rate FiO2 02/24/17 08:00 98.3 69 18 109/54 (72) 99 02/24/17 04:00 98.5 65 16 111/57 (75) 97 02/24/17 04:00 Room Air 02/24/17 00:00 Room Air 02/23/17 20:00 Room Air 02/23/17 16:00 98.4 72 16 146/56 (86) 96 02/23/17 12:00 97.5 69 16 121/70 (87) 97 I/O 02/23/17 02/23/17 02/23/17 02/24/17 02/24/17 02/24/17 07:00 15:00 23:00 07:00 15:00 23:00 Intake Total 400 ml 1200 ml 240 ml Output Total 300 ml Balance 100 ml 1200 ml 240 ml Intake Oral 400 ml 1200 ml 240 ml Output Urine Total 300 ml # Voids 6 2 # Bowel Movements 0 1 1 (Enrique Lin MD, R2) Result Diagram: 02/21/17 0519 02/24/17 0545 Objective Remarks GEN: normally nourished, in no acute distress. Sitting in bed. LUNGS: CTAB CARDIOVASCULAR: RR without murmur or gallop. GI/ABD: soft, nontender; BS+ SKIN: Exam of RUE is bandage along medial aspect of upper arm C/D/I. Improved swelling of RUE. Pulses and sensation intact. PSYCH/MENTAL STATUS: Afocal. Procedures I&D on 02-16-17 (Enrique Lin MD, R2) A/P Assessment and Plan 36-year-old female with history of epilepsy presents with painful cellulitis. Discharge Planning will need full treatment of endocarditis, ID following (Enrique Lin MD, R2) Attending Attestation Patient seen and examined. Case reviewed and discussed Agree with plan of care as discussed with me and documented in the resident note. (Sasha Capps MD) Problem List: (1) Infective myositis of right upper arm ICD Codes: M60.021 - Infective myositis, right upper arm Status: Acute Plan: Pt is s/p I&D and s/p drain removal with orthopedic surgery -Continue Vancomycin IV q12H; consult pharmacy for dosing adjustment (02/14- ) -Consult Orthopedic Surgery, appreciate recs * Post-op from I&D with drain; Drain removed 02/18 * Daily dressing changes; Ice and elevation * Wound culture group A beta strep positive -ID consult., Appreciate recommendations * Continue vancomycin IV (target trough 15-20) * Patient not safe to discharge with PICC line on the streets * Check CBC with differential, creatinine, LFTs, and CRP once a week * Follow cultures -Awaiting susceptibilities for cultures -IVF -Oxycontin BID, morphine PRN pain US: Probably phlegmonous changes in upper inner arm CT RUE: Large organized intramuscular fluid collection within long head of triceps muscle; inflammation characteristic of cellulitis Chest MRI: no definite abnormality. 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 Possible vegetation of 1 x 1 cm on tricuspid valve leaflet. -ID consulted-appreciate recs -Vancomycin as above (3) Epilepsy ICD Codes: G40.909 - Epilepsy, unspecified, not intractable, without status epilepticus Status: Chronic Plan: Patient states he has a history of epilepsy. Currently not on any medications. Unsure of last seizure. Doesn't see neurologist. -Continue to monitor -Seizure precautions -Ativan PRN seizure (4) FEN Status: Acute Plan: Fluids: Tolerating PO Electrolytes: monitor/replace PRN Nutrition: regular diet DVT ppx: Lovenox (Enrique Lin MD, R2) Problem Qualifiers (1) Epilepsy: Qualified Codes: G40.919 - Epilepsy, unspecified, intractable, without status epilepticus Enrique Lin MD, R2 Feb 24, 2017 09:55 Sasha Capps MD Feb 25, 2017 09:40
[2017-02-24] MEDS: oxyCODONE HCL 20 MG CONTROLLED RELEASE TAB PO SCH ×2 (10:26→22:23)
[2017-02-24 12:00] VITALS: BP 110/58; PULSE 71; RESP 18; TEMP 98.4; O2SAT 98
[2017-02-24 16:00] VITALS: BP 115/58; PULSE 79; RESP 18; TEMP 98.1; O2SAT 97
--- NOTE | 2017-02-24 17:32 | HHI.IDPN ---
Subjective Subjective Remarks Patient is a 36-year-old female with history of epilepsy presents with right arm pain and rash. Patient states that she's been having a rash for the last 3 weeks. She states a month ago, she noticed a "bump" on her biceps. She had a bruise and a wound, and then bumped her arm a week later started swell up. Since then, she said is no swelling more and has been extremely more painful. She went to [facility] last week and was sent home with clindamycin. She then returned 4 days ago and was given a stronger dose of clindamycin. She then returned yesterday, but left AMA. She says the pain initially started on her arm, but has now progressed to armpit. She says she also has pain in her upper neck and right chest. She says the pain is constant, it is a throbbing pain. States it is burning. No numbness or tingling. Presented as a 10/10. Having chills and nausea. Feels lightheaded due to the pain. She took Advil at home, which helped minimally. 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 Denies any other wounds or rashes on her skin. Overnight events reviewed No fever No rash Right arm still swollen but much improved. Antibiotics Vanco IV Lines Line sites with e/o infection. Past Medical History reviewed Allergies: Coded Allergies: aspirin (Unverified Allergy, Severe, MAKES SEIZURES WORSE, 02/08/17) codeine (Unverified Allergy, Severe, 02/08/17) mushroom (Unverified Allergy, Severe, ANAPHYLAXIS, 02/08/17) tramadol (Unverified Allergy, Severe, 02/08/17) cephalexin (Verified Allergy, Intermediate, seizure, 02/13/17) Objective . Vital Signs Date Time Temp Pulse Resp B/P (MAP) Pulse Ox O2 Delivery O2 Flow Rate FiO2 02/24/17 16:00 98.1 79 18 115/58 (77) 97 02/24/17 12:00 98.4 71 18 110/58 (75) 98 02/24/17 08:28 Room Air 02/24/17 08:00 98.3 69 18 109/54 (72) 99 02/24/17 04:00 98.5 65 16 111/57 (75) 97 02/24/17 04:00 Room Air 02/24/17 00:00 Room Air 02/23/17 20:00 Room Air . Laboratory Tests Test 02/24/17 05:45 Creatinine 0.83 MG/DL Estimat Glomerular Filtration Rate 78 ML/MIN Imaging Last Impressions Upper Extremity MRI 02/15/17 0000 Signed Impressions: Service Date/Time: Wednesday, February 15, 2017 19:53 - CONCLUSION: 1. There is an abscess in the proximal medial arm subcutaneous tissues measuring up to 5.4 cm. 2. There is severe surrounding subcutaneous edema which extends into the right axilla and surrounds the neurovascular structures. 3. There is muscular edema within the triceps. Marcio Bettencourt MD Chest MRI 02/15/17 0000 Signed Impressions: Service Date/Time: Wednesday, February 15, 2017 19:53 - CONCLUSION: 1. Examination is severely degraded by motion artifact. I cannot confidently exclude a sternal abnormality but no definite abnormality is seen. Consider chest CT if clinical suspicion persists for an abnormality. 2. Small bilateral pleural effusions with associated compressive atelectasis. Marcio Bettencourt MD Abdomen X-Ray 02/15/17 0000 Signed Impressions: Service Date/Time: Wednesday, February 15, 2017 19:23 - CONCLUSION: 1. No metallic foreign body is present to preclude MRI. 2. Mild consolidation in the left lung base. Marcio Bettencourt MD Upper Extremity CT 02/14/17 0000 Signed Impressions: Service Date/Time: Tuesday, February 14, 2017 20:17 - CONCLUSION: 1. Large organized intramuscular fluid collection within the long head of the triceps muscle just low the shoulder characteristic of an abscess. 2. Cutaneous and subcutaneous inflammation characteristic of cellulitis. 3. Intact shoulder joint. No evidence of acute bony abnormality or joint effusion 4. 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 Farhat Rodriguez MD Chest X-Ray 02/13/17 1614 Signed Impressions: Service Date/Time: Monday, February 13, 2017 16:48 - CONCLUSION: No acute cardiopulmonary disease. Ga Alonso MD Soft Tissue Ultrasound 02/13/17 0000 Signed Impressions: Service Date/Time: Monday, February 13, 2017 22:26 - CONCLUSION: 1. Probable phlegmonous changes in the upper inner arm without discrete fluid collection to suggest abscess. Frank Brito MD Physical Exam GENERAL: This is a well-nourished, well-developed patient, in no apparent distress. SKIN: No rashes, ecchymoses or lesions. Cool and dry. HEAD: Atraumatic. Normocephalic. No temporal or scalp tenderness. EYES: Pupils equal round and reactive. Extraocular motions intact. No scleral icterus. No injection or drainage. ENT: Nose without bleeding, purulent drainage or septal hematoma. Throat without erythema, tonsillar hypertrophy or exudate. Uvula midline. Airway patent. NECK: Trachea midline. No JVD or lymphadenopathy. Supple, nontender, no meningeal signs. CARDIOVASCULAR: Regular rate and rhythm without murmurs, gallops, or rubs. RESPIRATORY: Clear to auscultation. Breath sounds equal bilaterally. No wheezes , rales, or rhonchi. GASTROINTESTINAL: Abdomen soft, non-tender, nondistended. MUSCULOSKELETAL: Right shoulder in surgical dressing. NEUROLOGICAL: Awake and alert. Grossly non focal Psych: cooperative. IV line sites with no e.o infection. Assessment & Plan Remarks Group A Strep Endocarditis Tricuspid valve. Group A Strep Infective Myositis and abscess s/p I&D. Intravenous drug abuse admits to use 3 wks prior to admission. Anger issues Non compliant. Recs Continue Vanco IV (Changed target trough to 15-20) Patient had seizures with Keflex cannot use Penicillins. will obtain more info from patient. Patient is homeless. Unless a safe living arrangement in a setting with no other IVDAs can be arranged not safe to discharge with PICC line on streets. Check CBC with diff, Creatinine, LFTs and CRP once a week. To be ordered and followed by primary team. Will follow prn. Follow cultures Follow clinically. Ok to transfer to [place]. Tash Moore MD Feb 24, 2017 17:32
[2017-02-24] MEDS: ENOXAPARIN SODIUM 40 MG/0.4 ML SYRINGE SQ SCH (18:05)
[2017-02-24 20:39] VITALS: BP 103/59; PULSE 78; RESP 18; TEMP 98.3; O2SAT 96
[2017-02-24] MEDS: DOCUSATE SODIUM 50 MG/SENNA 8.6 MG TAB PO SCH (21:00)
[2017-02-24] MEDS: ZOLPIDEM TARTRATE 5 MG TAB PO PRN (22:22)
[2017-02-25] VITALS: BP 101/57; PULSE 87; RESP 19; TEMP 98.4; O2SAT 97
[2017-02-25] MEDS: MORPHINE SULFATE 4 MG/ML INJ IV PUSH PRN ×5 (00:48→23:28)
[2017-02-25] MEDS: VANCOMYCIN INJ 1,500 MG in SODIUM CHLORID 0.9% 500 ML INJ 500 ML IV SCH ×2 (05:36→18:19)
[2017-02-25 08:00] VITALS: BP 104/51; PULSE 74; RESP 18; TEMP 98.2; O2SAT 98
[2017-02-25] MEDS: SODIUM CHLORIDE 0.9% FLUSH 10 ML FLUSH IV FLUSH SCH ×2 (08:09→22:05)
[2017-02-25] MEDS: oxyCODONE HCL 20 MG CONTROLLED RELEASE TAB PO SCH ×2 (08:12→22:04)
[2017-02-25 12:00] VITALS: BP 121/68; PULSE 89; RESP 18; TEMP 98.8; O2SAT 94
--- NOTE | 2017-02-25 14:38 | HHI.FPPN ---
Subjective Remarks Pt states that she is doing fine this morning, despite her inability to sleep since so many people come into her room during the night. She also complains of chest pain in her right chest that happened last night when she was awakened suddenly by a nurse. She described it as a sharp stabbing pain and thought it stemmed from anxiety. Otherwise, no fever or chills, no SOB, no abdominal pain, no nausea/vomiting, no constipation/diarrhea. (Kaylin Gregorio MD R1) Objective Vitals Vital Signs Date Time Temp Pulse Resp B/P (MAP) Pulse Ox O2 Delivery O2 Flow Rate FiO2 02/25/17 12:00 98.8 89 18 121/68 (85) 94 02/25/17 08:00 98.2 74 18 104/51 (68) 98 02/25/17 04:00 Room Air 02/25/17 00:00 Room Air 02/25/17 00:00 98.4 87 19 101/57 (72) 97 02/24/17 20:39 98.3 78 18 103/59 (74) 96 02/24/17 20:00 Room Air 02/24/17 16:00 98.1 79 18 115/58 (77) 97 I/O 02/24/17 02/24/17 02/24/17 02/25/17 02/25/17 02/25/17 06:59 14:59 22:59 06:59 14:59 22:59 Intake Total 240 ml 1200 ml 515 ml Balance 240 ml 1200 ml 515 ml Intake Oral 240 ml 1200 ml IV Total 515 ml # Voids 2 6 4 # Bowel Movements 1 1 (Kaylin Gregorio MD R1) Result Diagram: 02/21/17 0519 02/24/17 0545 Objective Remarks GEN: normally nourished, in no acute distress. Sitting in bed. LUNGS: CTAB CARDIOVASCULAR: RR without murmur or gallop. GI/ABD: soft, nontender; BS+ SKIN: Exam of RUE is bandage along medial aspect of upper arm C/D/I. Improved swelling of RUE. Pulses and sensation intact. PSYCH/MENTAL STATUS: Afocal. Procedures I&D on 02-16-17 (Kaylin Gregorio MD R1) A/P Assessment and Plan 36-year-old female with history of epilepsy presents with painful cellulitis. Discharge Planning will need full treatment of endocarditis, ID following (Kaylin Gregorio MD R1) Attending Attestation Patient seen and examined. Case reviewed and discussed Agree with plan of care as discussed with me and documented in the resident note. (Sasha Capps MD) Problem List: (1) Infective myositis of right upper arm ICD Codes: M60.021 - Infective myositis, right upper arm Status: Acute Plan: Pt is s/p I&D and s/p drain removal with orthopedic surgery -Continue Vancomycin IV q12H; consult pharmacy for dosing adjustment (02/14- ) -Consult Orthopedic Surgery, appreciate recs * Post-op from I&D with drain; Drain removed 02/18 * Daily dressing changes; Ice and elevation * Wound culture group A beta strep positive -ID consult., Appreciate recommendations * Continue vancomycin IV (target trough 15-20) * Patient had seizures with Keflex, cannot use Penicillins * Patient not safe to discharge with PICC line on the streets * Ok to transfer to [place] * Check CBC with differential, creatinine, LFTs, and CRP once a week -IVF -Oxycontin BID, morphine PRN pain US: Probably phlegmonous changes in upper inner arm CT RUE: Large organized intramuscular fluid collection within long head of triceps muscle; inflammation characteristic of cellulitis Chest MRI: no definite abnormality. 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 Possible vegetation of 1 x 1 cm on tricuspid valve leaflet. -ID consulted-appreciate recs -Vancomycin as above (3) Epilepsy ICD Codes: G40.909 - Epilepsy, unspecified, not intractable, without status epilepticus Status: Chronic Plan: Patient states he has a history of epilepsy. Currently not on any medications. Unsure of last seizure. Doesn't see neurologist. -Continue to monitor -Seizure precautions -Ativan PRN seizure (4) FEN Status: Acute Plan: Fluids: Tolerating PO Electrolytes: monitor/replace PRN Nutrition: regular diet DVT ppx: Lovenox (Kaylin Gregorio MD R1) Problem Qualifiers (1) Epilepsy: Qualified Codes: G40.919 - Epilepsy, unspecified, intractable, without status epilepticus Kaylin Gregorio MD R1 Feb 25, 2017 14:38 Sasha Capps MD Feb 28, 2017 16:13
[2017-02-25] MEDS: ENOXAPARIN SODIUM 40 MG/0.4 ML SYRINGE SQ SCH (18:19)
[2017-02-25 20:00] VITALS: BP 158/96; PULSE 85; RESP 18; TEMP 97.6; O2SAT 100
[2017-02-25] MEDS: DOCUSATE SODIUM 50 MG/SENNA 8.6 MG TAB PO SCH (21:00)
[2017-02-25] MEDS: ZOLPIDEM TARTRATE 5 MG TAB PO PRN (23:40)
[2017-02-26 00:10] VITALS: BP 129/88; PULSE 70; RESP 18; TEMP 97.9; O2SAT 97
[2017-02-26 04:00] VITALS: BP 113/67; PULSE 79; RESP 18; TEMP 98.5; O2SAT 98
[2017-02-26] MEDS: VANCOMYCIN INJ 1,500 MG in SODIUM CHLORID 0.9% 500 ML INJ 500 ML IV SCH (06:03)
[2017-02-26] MEDS: MORPHINE SULFATE 4 MG/ML INJ IV PUSH PRN ×4 (06:03→21:17)
[2017-02-26 08:00] VITALS: BP 114/58; PULSE 81; RESP 18; TEMP 97.8; O2SAT 99
[2017-02-26] MEDS: SODIUM CHLORIDE 0.9% FLUSH 10 ML FLUSH IV FLUSH SCH ×2 (08:30→21:18)
[2017-02-26] MEDS: oxyCODONE HCL 20 MG CONTROLLED RELEASE TAB PO SCH ×2 (08:31→23:03)
[2017-02-26 12:00] VITALS: BP 111/68; PULSE 91; RESP 18; TEMP 98.1; O2SAT 96
--- NOTE | 2017-02-26 14:04 | HHI.FPPN ---
Subjective Remarks Patient states that she is not feeling well this morning. She had just received some bad news that 3 of her friends have . She is grieving over that loss. She's also experiencing the same chest pain in her right chest. She also states that her heart is beating funny and she feels like she is having palpitations. She has been working with PT to gain normal range of motion for her right arm. She feels that it could be contributing to her pain, but is concerned. She requests a new sleep medicine since the Ambien is not working. She says she has tried melatonin before when she was in high school and it worked for her. No fevers or chills, no shortness of breath, no abdominal pain, no nausea or vomiting, no diarrhea or constipation. (Kaylin Gregorio MD R1) Objective Vitals Vital Signs Date Time Temp Pulse Resp B/P (MAP) Pulse Ox O2 Delivery O2 Flow Rate FiO2 02/26/17 12:00 98.1 91 18 111/68 (82) 96 02/26/17 08:00 97.8 81 18 114/58 (76) 99 02/26/17 04:00 98.5 79 18 113/67 (82) 98 02/26/17 00:10 97.9 70 18 129/88 (102) 97 02/25/17 22:00 Room Air 02/25/17 20:00 97.6 85 18 158/96 (116) 100 I/O 02/25/17 02/25/17 02/25/17 02/26/17 02/26/17 02/26/17 07:00 15:00 23:00 07:00 15:00 23:00 Intake Total 515 ml 480 ml Output Total 700 ml Balance 515 ml 480 ml -700 ml Intake Oral 480 ml IV Total 515 ml Output Urine Total 700 ml # Voids 4 4 # Bowel Movements 1 (Kaylin Gregorio MD R1) Result Diagram: 02/24/17 0545 Objective Remarks GEN: normally nourished, in no acute distress. Sitting in bed. Tearful LUNGS: CTAB CHEST: Tenderness to palpation of right pectoralis major muscle CARDIOVASCULAR: RR without murmur or gallop. GI/ABD: soft, nontender; BS+ SKIN: Exam of RUE is bandage along medial aspect of upper arm C/D/I. minimal swelling of RUE. Pulses and sensation intact. No erythema along the incision site, well-healing, sutures are intact. PSYCH/MENTAL STATUS: Afocal. Procedures I&D on 02-16-17 (Kaylin Gregorio MD R1) A/P Assessment and Plan 36-year-old female with history of epilepsy presents with painful cellulitis. Discharge Planning will need full treatment of endocarditis, ID following (Kaylin Gregorio MD R1) Attending Attestation Patient seen and examined. Case reviewed and discussed Agree with plan of care as discussed with me and documented in the resident note. (Sasha Capps MD) Problem List: (1) Infective myositis of right upper arm ICD Codes: M60.021 - Infective myositis, right upper arm Status: Acute Plan: Pt is s/p I&D and s/p drain removal with orthopedic surgery -Continue Vancomycin IV q12H; consult pharmacy for dosing adjustment (02/14- ) -Consult Orthopedic Surgery, appreciate recs * Post-op from I&D with drain; Drain removed 02/18 * Daily dressing changes; Ice and elevation * Wound culture group A beta strep positive -ID consult., Appreciate recommendations * Continue vancomycin IV (target trough 15-20) * Patient had seizures with Keflex, cannot use Penicillins * Patient not safe to discharge with PICC line on the streets * Ok to transfer to [place] * Check CBC with differential, creatinine, LFTs, and CRP once a week -IVF -Oxycontin BID, decreased IV morphine to 2mg PRN (will continue to wean daily) pain US: Probably phlegmonous changes in upper inner arm CT RUE: Large organized intramuscular fluid collection within long head of triceps muscle; inflammation characteristic of cellulitis Chest MRI: no definite abnormality. 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 Possible vegetation of 1 x 1 cm on tricuspid valve leaflet. -ID consulted-appreciate recs -Vancomycin as above -Telemetry, Chest x-ray, ECG for workup of palpitations (3) Epilepsy ICD Codes: G40.909 - Epilepsy, unspecified, not intractable, without status epilepticus Status: Chronic Plan: Patient states she has a history of epilepsy. Currently not on any medications. Unsure of last seizure. Doesn't see neurologist. -Continue to monitor -Seizure precautions -Ativan PRN seizure (4) FEN Status: Acute Plan: Fluids: Tolerating PO Electrolytes: monitor/replace PRN Nutrition: regular diet DVT ppx: Lovenox Melatonin for sleep Pain management: OxyContin po and morphine IV, ibuprofen (Kaylin Gregorio MD R1) Problem Qualifiers (1) Epilepsy: Qualified Codes: G40.919 - Epilepsy, unspecified, intractable, without status epilepticus Kaylin Gregorio MD R1 Feb 26, 2017 14:04 Sasha Capps MD Feb 28, 2017 16:13
[2017-02-26] MEDS: IBUPROFEN 400 MG TAB PO SCH ×2 (14:30→22:00)
--- NOTE | 2017-02-26 15:24 | RADRPT ---
EXAM DATE/TIME: 02/26/2017 14:54 [facility] COMPARISON: CHEST SINGLE AP, February 13, 2017, 16:48. INDICATIONS : Chest pain. MEDICAL HISTORY : None. SURGICAL HISTORY : None. ENCOUNTER: Initial ACUITY: 2 days PAIN SCORE: 6/10 LOCATION: Bilateral chest FINDINGS: A single view of the chest demonstrates the lungs to be symmetrically aerated without evidence of mas s, infiltrate or effusion. The cardiomediastinal contours are unremarkable. Osseous structures are intact. CONCLUSION: No acute disease. Chris Landry MD FACR on February 26, 2017 at 15:22 Board Certified Radiologist. This report was verified electronically.
[2017-02-26 16:00] VITALS: BP 115/70; PULSE 97; RESP 18; TEMP 97.6; O2SAT 99
--- NOTE | 2017-02-26 17:18 | EKG ---
Date Performed: 02/26/2017 Time Performed: 13:34:00 PTAGE: 36 years EKG: Sinus rhythm WITH SINUS ARRHYTHMIA NORMAL ECG PREVIOUS TRACING : 11/27/2009 13.42 DOCTOR: Roque Hurtado Interpretating Date/Time 02/26/2017 17:16:15
[2017-02-26] MEDS: VANCOMYCIN INJ 1,250 MG in SODIUM CHLOR 0.9% 250 ML INJ 250 ML IV SCH (17:49)
[2017-02-26] MEDS: ENOXAPARIN SODIUM 40 MG/0.4 ML SYRINGE SQ SCH (17:50)
[2017-02-26 20:00] VITALS: BP 112/71; PULSE 93; RESP 20; TEMP 98.2; O2SAT 99
[2017-02-26] MEDS ORDERED: MELATONIN 5 MG TAB PO SCH (21:00)
[2017-02-26] MEDS: DOCUSATE SODIUM 50 MG/SENNA 8.6 MG TAB PO SCH (21:00)
[2017-02-27] VITALS: BP 102/64; PULSE 86; RESP 20; TEMP 98; O2SAT 98
[2017-02-27] MEDS: MORPHINE SULFATE 4 MG/ML INJ IV PUSH PRN ×5 (02:00→18:53)
[2017-02-27 04:00] VITALS: BP 96/56; PULSE 65; RESP 20; TEMP 97.5; O2SAT 97
[2017-02-27] MEDS: VANCOMYCIN INJ 1,250 MG in SODIUM CHLOR 0.9% 250 ML INJ 250 ML IV SCH ×2 (05:50→18:12)
[2017-02-27] MEDS: IBUPROFEN 400 MG TAB PO SCH ×2 (05:50→12:02)
[2017-02-27 08:00] VITALS: BP 92/52; PULSE 66; RESP 18; TEMP 98; O2SAT 97
[2017-02-27] MEDS: oxyCODONE HCL 20 MG CONTROLLED RELEASE TAB PO SCH (08:08)
[2017-02-27] MEDS: SODIUM CHLORIDE 0.9% FLUSH 10 ML FLUSH IV FLUSH SCH (08:08)
[2017-02-27 12:00] VITALS: BP 102/60; PULSE 91; RESP 18; TEMP 98.3; O2SAT 98
--- NOTE | 2017-02-27 15:26 | HHI.FPPN ---
Subjective Remarks Patient states that she was doing well this morning. She is having some right shoulder pain from working with PT. She requests that her [facility] the morning so she won't have multiple sticks throughout the day. She also states that she has a potential place to live. She will be staying with a friend who is a fuel truck driver and would not be home most the time. No fever or chills, no chest pain, no shortness of breath, no abdominal pain, no nausea or vomiting, no constipation or diarrhea. (Kaylin Gregorio MD R1) Objective Vitals Vital Signs Date Time Temp Pulse Resp B/P (MAP) Pulse Ox O2 Delivery O2 Flow Rate FiO2 02/27/17 12:00 98.3 91 18 102/60 (74) 98 02/27/17 08:40 Room Air 02/27/17 08:00 98.0 66 18 92/52 (65) 97 02/27/17 04:00 97.5 65 20 96/56 (69) 97 02/27/17 00:00 98.0 86 20 102/64 (77) 98 02/26/17 21:14 Room Air 02/26/17 20:00 98.2 93 20 112/71 (85) 99 02/26/17 16:00 97.6 97 18 115/70 (85) 99 I/O 02/26/17 02/26/17 02/26/17 02/27/17 02/27/17 02/27/17 07:00 15:00 23:00 07:00 15:00 23:00 Intake Total 1222 ml 900 ml 765 ml Output Total 700 ml Balance -700 ml 1222 ml 900 ml 765 ml Intake Oral 960 ml 900 ml IV Total 262 ml 765 ml Output Urine Total 700 ml # Voids 5 2 # Bowel Movements 5 (Kaylin Gregorio MD R1) Result Diagram: 02/27/17 0955 Objective Remarks GEN: normally nourished, in no acute distress. Sitting in bed. LUNGS: CTAB CHEST: Tenderness to palpation of right pectoralis major muscle CARDIOVASCULAR: RR without murmur or gallop. GI/ABD: soft, nontender; BS+ SKIN: Exam of RUE is bandage along medial aspect of upper arm C/D/I. minimal swelling of RUE. Pulses and sensation intact. No erythema along the incision site, well-healing, sutures are intact. PSYCH/MENTAL STATUS: Afocal. Procedures I&D on 02-16-17 (Kaylin Gregorio MD R1) A/P Assessment and Plan 36-year-old female with history of epilepsy presents with painful cellulitis. Discharge Planning will need full treatment of endocarditis, ID following (Kaylin Gregorio MD R1) Attending Attestation Patient seen and examined. Case reviewed and discussed Agree with plan of care as discussed with me and documented in the resident note. (Sasha Capps MD) Problem List: (1) Infective myositis of right upper arm ICD Codes: M60.021 - Infective myositis, right upper arm Status: Acute Plan: Pt is s/p I&D and s/p drain removal with orthopedic surgery -Continue Vancomycin IV q12H; consult pharmacy for dosing adjustment (02/14- ) -Consult Orthopedic Surgery, appreciate recs * Post-op from I&D with drain; Drain removed 02/18 * Daily dressing changes; Ice and elevation * Wound culture group A beta strep positive -ID consult., Appreciate recommendations * Continue vancomycin IV (target trough 15-20) * Patient had seizures with Keflex, cannot use Penicillins * Patient not safe to discharge with PICC line on the streets * Ok to transfer to [place] * Check CBC with differential, creatinine, LFTs, and CRP once a week -IVF -Oxycontin BID, decreased IV morphine to 2mg PRN (will continue to wean daily) pain US: Probably phlegmonous changes in upper inner arm CT RUE: Large organized intramuscular fluid collection within long head of triceps muscle; inflammation characteristic of cellulitis Chest MRI: no definite abnormality. 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 Possible vegetation of 1 x 1 cm on tricuspid valve leaflet. -ID consulted-appreciate recs -Vancomycin as above -Telemetry, Chest x-ray, ECG for workup of palpitations (3) Epilepsy ICD Codes: G40.909 - Epilepsy, unspecified, not intractable, without status epilepticus Status: Chronic Plan: Patient states she has a history of epilepsy. Currently not on any medications. Unsure of last seizure. Doesn't see neurologist. -Continue to monitor -Seizure precautions -Ativan PRN seizure (4) FEN Status: Acute Plan: Fluids: Tolerating PO Electrolytes: monitor/replace PRN Nutrition: regular diet DVT ppx: Lovenox Melatonin for sleep Pain management: OxyContin po and morphine IV, ibuprofen (Kaylin Gregorio MD R1) Problem Qualifiers (1) Epilepsy: Qualified Codes: G40.919 - Epilepsy, unspecified, intractable, without status epilepticus Kaylin Gregorio MD R1 Feb 27, 2017 15:26 Sasha Capps MD Feb 28, 2017 16:12
--- NOTE | 2017-02-27 15:37 | HHI.PR ---
Addendum to Inpatient Note Addendum Reason: Additional Documentation Additional Information Off service note Ms. Lipscomb is a 36-year-old female with past medical history of previous heroin abuse who presented to the ED on 02/13 with right upper extremity cellulitis. She was started on vancomycin IV. Upper extremity MRI showed an abscess in the proximal medial arm subcutaneous tissues measuring up to 5.4 cm. Orthopedic surgery was consulted. An I and D was performed on 02/16. Wound cultures grew group G beta strep. Infectious disease was consulted. She was not seen fit for discharge with the PICC line because of her homelessness and prior IV drug use history. An echocardiogram was also performed and she was found to have a vegetation of 1 x 1 cm on her tricuspid valve leaflet. She continues to be on vancomycin with pharmacology consult for dosing. She will continue treatment for a total of 6 weeks for her endocarditis. Kaylin Gregorio MD R1 Feb 27, 2017 15:37
[2017-02-27 16:00] VITALS: BP 96/56; PULSE 97; RESP 18; TEMP 98.2; O2SAT 97
[2017-02-27] MEDS: ENOXAPARIN SODIUM 40 MG/0.4 ML SYRINGE SQ SCH (18:13)
--- NOTE | 2017-02-27 20:53 | HHI.FPPN ---
Addendum to progress note ADDENDUM Reason for addendum: Additonal documentation Additional information The family medicine team received a page concerning this patient at around 8:30 PM on February 27. As per nurse, patient was threatening to leave AMA because she was not allowed a visitor after 8 PM. The medicine team immediately went to see the patient. Patient was verbally abusive. It was explained to the patient that her condition warranted an extended hospital stay and leaving at this time was AGAINST MEDICAL ADVICE. It was explained to the patient that she required IV antibiotics, which she would be unable to receive as an outpatient. She requested a PICC line. Following a chart review, the medicine team felt it unsafe to discharge with PICC line as the team was unable to determine whether patient would be discharged into a safe environment. The patient was determined to leave. Patient ripped out IV. Patient left floor cursing staff. (Deepa Ingram MD R1) Deepa Ingram MD R1 Feb 27, 2017 20:53 Sasha Capps MD Feb 28, 2017 16:12
--- NOTE | 2017-02-28 02:49 | PD.AMA ---
Deepa Ingram MD R1 02/28/17 0249: Against Medical Advice Note Diagnosis: (1) Endocarditis of tricuspid valve (2) Infective myositis of right upper arm Discharge Disposition: Against Medical Advice Pt Condition on Discharge: Stable Recommended Treatment Course Recommendations * Patient remain in hospital for IV antibiotics. * Return to hospital for IV antibiotic treatment. AMA Statement Patient Mirian Lipscomb has decided to leave the hospital against medical advice. This patient has the capacity to refuse care and understands the risks of leaving, including permanent disability and/or , and has had an opportunity to ask questions about her condition. The patient has been informed that she may return for care at any time, and follow up has been arranged/ advised. Sasha Capps MD 02/28/17 1612: Deepa Ingram MD R1 Feb 28, 2017 02:49 Sasha Capps MD Feb 28, 2017 16:12
[2017-02-28] MEDS ORDERED: PHARMACY ORDERED LAB ONE (05:45)
--- NOTE | 2017-02-28 15:43 | HHI.DS ---
Isacc Quinones MD R2 02/28/17 1543: Discharge Summary Admission Date Feb 13, 2017 at 18:29 Discharge Date: Feb 28, 2017 Admitting Diagnosis Cellulitis, abscess, and endocarditis (1) Infective myositis of right upper arm Diagnosis: Principal Plan: Pt is s/p I&D and s/p drain removal with orthopedic surgery -Continue Vancomycin IV q12H; consult pharmacy for dosing adjustment (02/14- ) -Consult Orthopedic Surgery, appreciate recs * Post-op from I&D with drain; Drain removed 02/18 * Daily dressing changes; Ice and elevation * Wound culture group A beta strep positive -ID consult., Appreciate recommendations * Continue vancomycin IV (target trough 15-20) * Patient had seizures with Keflex, cannot use Penicillins * Patient not safe to discharge with PICC line on the streets * Ok to transfer to [place] * Check CBC with differential, creatinine, LFTs, and CRP once a week -IVF -Oxycontin BID, decreased IV morphine to 2mg PRN (will continue to wean daily) pain US: Probably phlegmonous changes in upper inner arm CT RUE: Large organized intramuscular fluid collection within long head of triceps muscle; inflammation characteristic of cellulitis Chest MRI: no definite abnormality. ICD Codes: M60.021 - Infective myositis, right upper arm Status: Acute (2) Endocarditis of tricuspid valve Diagnosis: Principal Plan: 2-D echocardiogram shows mild mitral and tricuspid valve regurgitation. Possible vegetation of 1 x 1 cm on tricuspid valve leaflet. -ID consulted-appreciate recs -Vancomycin as above -Telemetry, Chest x-ray, ECG for workup of palpitations ICD Codes: I36.8 - Other nonrheumatic tricuspid valve disorders Status: Acute (3) Epilepsy Diagnosis: Secondary Plan: Patient states she has a history of epilepsy. Currently not on any medications. Unsure of last seizure. Doesn't see neurologist. -Continue to monitor -Seizure precautions -Ativan PRN seizure ICD Codes: G40.909 - Epilepsy, unspecified, not intractable, without status epilepticus Status: Chronic (4) FEN Diagnosis: Secondary Plan: Fluids: Tolerating PO Electrolytes: monitor/replace PRN Nutrition: regular diet DVT ppx: Lovenox Melatonin for sleep Pain management: OxyContin po and morphine IV, ibuprofen Status: Acute Consultants Orthopedic surgery, infectious disease Procedures I&D on 02-16-17 Brief History Patient is a 36-year-old female with history of epilepsy presents with right arm pain and rash. Patient states that she's been having a rash for the last 3 weeks. She states a month ago, she noticed a "bump" on her biceps. She had a bruise and a wound, and then bumped her arm a week later started swell up. Since then, she said is no swelling more and has been extremely more painful. She went to [facility] last week and was sent home with clindamycin. She then returned 4 days ago and was given a stronger dose of clindamycin. She then returned yesterday, but left AMA. She says the pain initially started on her arm, but has now progressed to armpit. She says she also has pain in her upper neck and right chest. She says the pain is constant, it is a throbbing pain. States it is burning. No numbness or tingling. Presented as a 10/10. Having chills and nausea. Feels lightheaded due to the pain. She took Advil at home, which helped minimally. 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 Denies any other wounds or rashes on her skin. CBC/BMP: 02/27/17 0955 Significant Findings Laboratory Tests Test 02/26/17 14:36 02/27/17 09:55 Imaging Last Impressions Chest X-Ray 02/26/17 0000 Signed Impressions: Service Date/Time: Sunday, February 26, 2017 14:54 - CONCLUSION: No acute disease. Chris Landry MD FACR Upper Extremity MRI 02/15/17 0000 Signed Impressions: Service Date/Time: Wednesday, February 15, 2017 19:53 - CONCLUSION: 1. There is an abscess in the proximal medial arm subcutaneous tissues measuring up to 5.4 cm. 2. There is severe surrounding subcutaneous edema which extends into the right axilla and surrounds the neurovascular structures. 3. There is muscular edema within the triceps. Marcio Bettencourt MD Chest MRI 02/15/17 0000 Signed Impressions: Service Date/Time: Wednesday, February 15, 2017 19:53 - CONCLUSION: 1. Examination is severely degraded by motion artifact. I cannot confidently exclude a sternal abnormality but no definite abnormality is seen. Consider chest CT if clinical suspicion persists for an abnormality. 2. Small bilateral pleural effusions with associated compressive atelectasis. Marcio Bettencourt MD Abdomen X-Ray 02/15/17 0000 Signed Impressions: Service Date/Time: Wednesday, February 15, 2017 19:23 - CONCLUSION: 1. No metallic foreign body is present to preclude MRI. 2. Mild consolidation in the left lung base. Marcio Bettencourt MD Upper Extremity CT 02/14/17 0000 Signed Impressions: Service Date/Time: Tuesday, February 14, 2017 20:17 - CONCLUSION: 1. Large organized intramuscular fluid collection within the long head of the triceps muscle just low the shoulder characteristic of an abscess. 2. Cutaneous and subcutaneous inflammation characteristic of cellulitis. 3. Intact shoulder joint. No evidence of acute bony abnormality or joint effusion 4. 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 Farhat Rodriguez MD Soft Tissue Ultrasound 02/13/17 0000 Signed Impressions: Service Date/Time: Monday, February 13, 2017 22:26 - CONCLUSION: 1. Probable phlegmonous changes in the upper inner arm without discrete fluid collection to suggest abscess. Frank Brito MD PE at Discharge GEN: normally nourished, in no acute distress. Sitting in bed. LUNGS: CTAB CHEST: Tenderness to palpation of right pectoralis major muscle CARDIOVASCULAR: RR without murmur or gallop. GI/ABD: soft, nontender; BS+ SKIN: Exam of RUE is bandage along medial aspect of upper arm C/D/I. minimal swelling of RUE. Pulses and sensation intact. No erythema along the incision site, well-healing, sutures are intact. PSYCH/MENTAL STATUS: Afocal. Hospital Course Ms. Lipscomb is a 36-year-old female with past medical history of previous heroin abuse who presented to the ED on 02/13 with right upper extremity cellulitis. She was started on vancomycin IV. Upper extremity MRI showed an abscess in the proximal medial arm subcutaneous tissues measuring up to 5.4 cm. Orthopedic surgery was consulted. An I&D was performed on 02/16. Wound cultures grew group G beta strep. Infectious disease was consulted. She was not seen fit for discharge with the PICC line because of her homelessness and prior IV drug use history. An echocardiogram was also performed and she was found to have a vegetation of 1 x 1 cm on her tricuspid valve leaflet. She continued to be on vancomycin with pharmacology consult for dosing. She was supposed to continue treatment for a total of 6 weeks for her endocarditis. The family medicine team received a page concerning this patient at around 8:30 PM on February 27. As per nurse, patient was threatening to leave AMA because she was not allowed a visitor after 8 PM. The medicine team immediately went to see the patient. Patient was verbally abusive. It was explained to the patient that her condition warranted an extended hospital stay and leaving at this time was AGAINST MEDICAL ADVICE. It was explained to the patient that she required IV antibiotics, which she would be unable to receive as an outpatient. She requested a PICC line. Following a chart review, the medicine team felt it unsafe to discharge with PICC line as the team was unable to determine whether patient would be discharged into a safe environment. The patient was determined to leave. Patient ripped out IV. Patient left floor cursing staff. Pt Condition on Discharge: Stable Sasha Capps MD 02/28/17 1612: Discharge Summary CBC/BMP: 02/27/17 0955 Isacc Quinones MD R2 Feb 28, 2017 15:43 Sasha Capps MD Feb 28, 2017 16:12
== END 2017-02-27 21:00 | disposition left against medical advice (07) | DRG 500 ==
LOC: NEPE 15:40 → NEDA 18:29 → N04B 20:29
PROVIDERS: ADMIT Family Medicine; ATTEND Family Medicine
PROC: 0JDD0ZZ Extraction of Right Upper Arm Subcutaneous Tissue and Fascia, Open Approach (ICD-10-PCS; principal; 2017-02-16 10:50)
DX: M60.021 Infective myositis, right upper arm (principal); I33.0 Acute and subacute infective endocarditis; L03.113 Cellulitis of right upper limb; G40.919 Epilepsy, unspecified, intractable, without status epilepticus; N30.01 Acute cystitis with hematuria; L02.413 Cutaneous abscess of right upper limb; F17.210 Nicotine dependence, cigarettes, uncomplicated; B95.0 Streptococcus, group A, as the cause of diseases classified elsewhere; Z88.6 Allergy status to analgesic agent; Z88.1 Allergy status to other antibiotic agents; Z88.5 Allergy status to narcotic agent; Z59.0 Homelessness; Z86.14 Personal history of Methicillin resistant Staphylococcus aureus infection; Z91.19 Patient's noncompliance with other medical treatment and regimen; Z91.040 Latex allergy status
CPT/HCPCS: 71010; 71552; 73201; 73220; 74000; 76937; 76999; 80048; 80053; 80076; 80202; 81001; 82550; 82565; 83605; 84703; 85025; 85027; 85610; 85730; 86140; 86403; 87015; 87040; 87070; 87086; 87102; 87116; 87186; 87205; 87206; 93005; 93306; 96374; 96375; A9579; J0131; J0696; J1580; J1650; J2060; J2250; J2270; J2405; J2543; J3010; J3370; J7030; J7040; J7050; Q9967

== ENCOUNTER 2017-03-03 16:38 | Emergency (ER) | payer MEDICAID ==
[~2017-03-03] VITALS: Ht 157.5 cm; Wt 67.0 kg
[2017-03-03 16:40] VITALS: BP 116/96; PULSE 119; RESP 19; TEMP 98.7; O2SAT 97
--- NOTE | 2017-03-03 16:59 | PD ---
Physical Exam Date Seen by Provider: Mar 03, 2017 Time Seen by Provider: 16:56 Narrative 36 YOWF C/O R ARM CELLULITIS AND ENDOCARDITIS. HERE FOR ADMIT. LEFT AMA EARLIER. PAIN -01/03 VS NOTED WAITING FOR BED PLACEMENT Data Data Last Documented VS Vital Signs Date Time Temp Pulse Resp B/P (MAP) Pulse Ox O2 Delivery O2 Flow Rate FiO2 03/03/17 16:40 98.7 119 19 116/96 (103) 97 Room Air [facility] Medical Record Reviewed: No Supervised Visit with KAVYA: Yes Frank Edward Mar 03, 2017 16:59
[2017-03-03 17:32] VITALS: BP 146/81; PULSE 97; RESP 18; O2SAT 98
--- NOTE | 2017-03-03 17:52 | PD ---
HPI Chief Complaint: Skin Problem Time Seen by Provider: 17:45 Travel History International Travel<30 days: No Contact w/Intl Traveler<30days: No Traveled to known affect area: No History of Present Illness HPI PATIENT ADMITTED FEBRUARY 13 AND GIVEN IV ABX UNTIL Feb WHEN PATIENT VOLUNTARILY LEFT AMA BECAUSE SHE WAS NOT ALLOWED TO HAVE A VISITOR AFTER 8P? PATIENT HAD I&D BY ORTHO AND SEEN AND TREATED BY INFECTIOUS DISEASE. PATIENT THREATENS TO LEAVE YET AGAIN IF NOT GIVEN ANY PAIN MEDICATION...ADVISED THAT WILL ONLY PROVIDE ANTIBIOTIC TODAY PFSH Past Medical History Hx Anticoagulant Therapy: Yes (WAS RECEIVING LOVENOX ) Asthma: No Blood Disorders: No Anxiety: Yes Depression: Yes Cancer: No Cardiovascular Problems: Yes (HYPOTENSION, "INFECTION ON HEART VALVE") Chemotherapy: No Endocrine: No Gastrointestinal Disorders: No Genitourinary: Yes (KIDNEY STONES) Hypertension: No Immune Disorder: No Implanted Vascular Access Dvce: No Musculoskeletal: No Neurologic: Yes (EPILEPSY) Psychiatric: No Reproductive: No Respiratory: No Radiation Therapy: No Seizures: Yes ?: Unknown : 1 Para: 1 Past Surgical History AICD: No Arteriovenous Shunt: No Insulin Pump: No Joint Replacement: No Pacemaker: No Other Surgery: Yes (RT. WRIST) Social History Alcohol Use: Yes (occ) Tobacco Use: Yes (ppd) Substance Use: Yes (ALCOHOL, OPIATES, COCAINE, AMPHETAMINES) Allergies-Medications (Allergen,Severity, Reaction): Coded Allergies: aspirin (Unverified Allergy, Severe, MAKES SEIZURES WORSE, 03/03/17) codeine (Unverified Allergy, Severe, 03/03/17) mushroom (Unverified Allergy, Severe, ANAPHYLAXIS, 03/03/17) tramadol (Unverified Allergy, Severe, 03/03/17) cephalexin (Verified Allergy, Intermediate, seizure, 03/03/17) Reported Meds & Prescriptions Reported Meds & Active Scripts Active Review of Systems Except as stated in HPI: all other systems reviewed are Neg Physical Exam Narrative GENERAL: SKIN: Warm and dry. HEAD: Atraumatic. Normocephalic. EYES: Pupils equal and round. No scleral icterus. No injection or drainage. ENT: No nasal bleeding or discharge. Mucous membranes pink and moist. NECK: Trachea midline. No JVD. CARDIOVASCULAR: Regular rate and rhythm. NO MURMUR RESPIRATORY: No accessory muscle use. Clear to auscultation. Breath sounds equal bilaterally. GASTROINTESTINAL: Abdomen soft, non-tender, nondistended. MUSCULOSKELETAL: Extremities without clubbing, cyanosis, or edema. No obvious deformities. RIGHT MEDIAL BICEP/TRICEP INCISION AND IS WITHOUT CELLULITIS/ STREAKING OR LAD.... NEUROLOGICAL: Awake and alert. No obvious cranial nerve deficits. Motor grossly within normal limits. Five out of 5 muscle strength in the arms and legs. Normal speech. PSYCHIATRIC: Appropriate mood and affect; insight and judgment normal. Data Data Last Documented VS Vital Signs Date Time Temp Pulse Resp B/P (MAP) Pulse Ox O2 Delivery O2 Flow Rate FiO2 03/03/17 17:32 97 18 146/81 (102) 98 Room Air 03/03/17 16:40 98.7 Orders Orders Clindamycin Inj (Cleocin Inj) (03/03/17 18:00) [facility] Medical Decision Making Medical Screen Exam Complete: Yes Emergency Medical Condition: Yes Medical Record Reviewed: Yes Differential Diagnosis n/a as patient is returning for a known condition Narrative Course PATIENT GIVEN EVERY OPPORTUNITY TO STAY BUT WAS SET THAT IF NO PAIN MEDICATION GIVEN SHE WOULD GO AMA, AND WON'T SIGN....ADVISED THAT THIS COULD CAUSE POSSIBLE STROKE, AND EVEN IF NOT PERMANENT DISABILITY....IN AN ATTEMPT TO DO EVERYTHING POSSIBLE ADVISED WILL GIVE IM ABX AT LEAST IF NOT ABLE TO PROVIDE IV VANCO. Diagnosis Primary Impression: AMA Additional Impressions: POSSIBLE ENDOCARDITIS RESOLVING EXTREMITY ABSCESS Disposition: 07 AGAINST MEDICAL ADVICE Thomas Morales MD Mar 03, 2017 17:52
[2017-03-03] MEDS ORDERED: CLINDAMYCIN PHOS 600 MG/4 ML VIAL IM ONE (18:00)
== END 2017-03-03 18:55 | disposition left against medical advice (07) ==
LOC: NEPC 16:38
DX: L03.113 Cellulitis of right upper limb (principal); F17.200 Nicotine dependence, unspecified, uncomplicated
CPT/HCPCS: 96372